=== PATIENT | female | born 1965 | race Caucasian/White ===

== ENCOUNTER 2017-09-14 00:22 | Emergency (ER) | payer MEDICARE, OTHER ==
[~2017-09-14] VITALS: Ht 167.6 cm; Wt 61.4 kg
[2017-09-14 00:25] VITALS: Ht 167.6 cm; Wt 61.4 kg
[2017-09-14] MEDS ORDERED: SOD CHLORIDE 0.9% 1,000 ML IV STA (00:41)
[2017-09-14 01:22] LABS: BASOPHILS % 0.7 % (0.0-2.0); EOSINOPHILS # 0.2 10^3/ul (0.0-0.5); EOSINOPHILS % 3.7 % (0.0-7.0); HEMATOCRIT 29.8 % (37.0-47.0); HEMOGLOBIN 10.7 g/dl (12.0-16.0); LYMPHOCYTES # 1.1 10^3/ul (0.8-2.9); LYMPHOCYTES % 27.3 % (15.0-51.0); MEAN CORPUSCULAR HEMOGLOBIN 36.4 pg (29.0-33.0); MEAN CORPUSCULAR HGB CONC 35.9 g/dl (32.0-37.0); MEAN CORPUSCULAR VOLUME 101.4 fl (82.0-101.0); MEAN PLATELET VOLUME 12.2 fl (7.4-10.4); MONOCYTE # 0.5 10^3/ul (0.3-0.9); MONOCYTES % 12.4 % (0.0-11.0); NEUTROPHIL # 2.2 10^3/ul (1.6-7.5); NEUTROPHILS % 55.7 % (39.0-77.0); PLATELET COUNT 101 10^3/UL (140-415); RED BLOOD COUNT 2.94 10^6/ul (4.20-5.40); RED CELL DISTRIBUTION WIDTH 17.5 % (11.5-14.5)
[2017-09-14 01:52] LABS: CALCIUM 9.5 mg/dl (8.4-10.2); CREATININE 0.81 mg/dl (0.44-1.00); POTASSIUM 3.3 mmol/L (3.5-5.1)
[2017-09-14] MEDS ORDERED: DEXTROSE 50% 50 ML SYRINGE IV ONE (02:30)
[2017-09-14] MEDS ORDERED: DEXTROSE 5%-0.45% NACL 1,000 ML IV SCH ×2 (02:30→02:58)
[2017-09-14] MEDS ORDERED: ACETAMINOPHEN 650MG/20.3ML CUP PO PRN (03:00)
[2017-09-14] MEDS ORDERED: DEXTROSE 50% 50 ML SYRINGE IV PRN ×3 (03:00→03:15)
[2017-09-14] MEDS ORDERED: ONDANSETRON 4 MG INJ IV PRN (03:00)
--- NOTE | 2017-09-14 03:08 | ERD ---
ER Documentation Chief Complaint Chief Complaint BIBA RA90,drowsy r/t low blood sugar at home,rec'd D50,c/o low back pain HPI This 52-year-old female presents with severe hypoglycemia. Family had called paramedics and patient was acutely altered and unconscious. Paramedics arrived and blood sugar was too low to read meaning was lower than 30. Paramedics gave dextrose after IV placement the sugar came up to 338 prior to arrival to the ER. Patient is still confused. She states that she usually takes her NovoLog insulin which she gave herself 8 units of this evening however she did not eat at all today. She has not given herself her midnight Lantus dose yet. She did take it last night however. He denies any pain shortness of breath although she is slightly. She denies alcohol use. ROS All systems reviewed and are negative except as per history of present illness the patient seems unreliable currently.. Allergies Allergies: Coded Allergies: Penicillins (Verified Allergy, Unknown, 09/14/17) PMhx/Soc Medical and Surgical Hx: pt denies Surgical Hx History of Surgery: No Hx Neurological Disorder: No Hx Respiratory Disorders: No Hx Cardiac Disorders: No Hx Psychiatric Problems: No Hx Miscellaneous Medical Probl: Yes (LIVER CIRRHOSIS, DM) Hx Alcohol Use: Yes (FORMER) Hx Substance Use: No Hx Tobacco Use: Yes Smoking Status: Current every day smoker Physical Exam Vitals Vital Signs Date Time Temp Pulse Resp B/P Pulse Ox O2 Delivery O2 Flow Rate FiO2 09/14/17 00:25 97.4 69 18 111/79 100 Room Air 09/14/17 00:25 97.4 89 18 136/76 98 Physical Exam Const: [] Distress, appears slightly altered and somnolent Head: Atraumatic Eyes: Normal Conjunctiva, EOMI, PERRLA ENT: Normal External Ears, Nose and Mouth. Neck: Full range of motion..~ No meningismus. Resp: Clear to auscultation bilaterally Cardio: Regular rate and rhythm, no murmurs Abd: Soft, non tender, non distended. Normal bowel sounds Skin: No petechiae or rashes Back: No midline or flank tenderness Ext: No cyanosis, or edema Neur: Awake and alert and oriented 3, slow speech, slow to answer, cranial nerves II through XII intact, no cerebellar deficits. Psych: Flat affect Result Diagram: 09/14/1710409/14/17104 Results 24 hrs Laboratory Tests Test 09/14/17 01:05 09/14/17 02:24 White Blood Count 4.010^3/ul Red Blood Count 2.9410^6/ul Hemoglobin 10.7g/dl Hematocrit 29.8% Mean Corpuscular Volume 101.4fl Mean Corpuscular Hemoglobin 36.4pg Mean Corpuscular Hemoglobin Concent 35.9g/dl Red Cell Distribution Width 17.5% Platelet Count 48229^3/UL Mean Platelet Volume 12.2fl Neutrophils % 55.7% Lymphocytes % 27.3% Monocytes % 12.4% Eosinophils % 3.7% Basophils % 0.7% Nucleated Red Blood Cells % 0.0/100WBC Neutrophils # 2.210^3/ul Lymphocytes # 1.110^3/ul Monocytes # 0.510^3/ul Eosinophils # 0.210^3/ul Basophils # 0.010^3/ul Nucleated Red Blood Cells # 0.010^3/ul Sodium Level 145mmol/L Potassium Level 3.3mmol/L Chloride Level 110mmol/L Carbon Dioxide Level 25mmol/L Anion Gap 13 Blood Urea Nitrogen 13mg/dl Creatinine 0.81mg/dl Glucose Level 58mg/dl Calcium Level 9.5mg/dl Bedside Glucose 53mg/dL Current Medications Medications (Trade) Dose Ordered Sig/Julian Route PRN Reason Start Time Stop Time Status Last Admin Dose Admin Sodium Chloride 1,000 ml @ 1,000 mls/hr Q1H STAT IV 09/14/17 00:41 09/14/17 01:40 DC 09/14/17 01:13 Dextrose/Sodium Chloride (D5-1/2ns) 1,000 ml @ 125 mls/hr Q8H IV 09/14/17 02:30 09/14/17 02:40 Dextrose (D50w Syringe) 50 ml ONCE ONCE IV 09/14/17 02:30 09/14/17 02:31 DC 09/14/17 02:39 Procedures/MDM Acute recurrent hypoglycemia on insulin. Patient sugar is been 338 on paramedics monitor on arrival after having been too low to read. She then again dropped to 58 and 54 shortly after arrival. I ordered another amp of D50 and placed her on a D5 drip. We are going to check the sugars every hour. She also had mild hypokalemia and was able to tolerate a p.o. potassium pill. Patient appeared more altered than she should for having high sugar meaning that she may have Addy been dropping. I have ordered an ethanol level because patient has a macrocytic anemia and it is Saturday night she may be intoxicated but not be admitting to it. Either way do not feel it even if the sugar becomes controlled after E observation the would be safe to discharge her under her own care to administer insulin properly. I spoke with Dr. Chan and the patient will be admitted to ICU for very close monitoring of her sugars. Rate monitor interpretation: Normal sinus rhythm with occasional sinus tachycardia. No other arrhythmias. Critical care time 35 minutes: This includes frequent multiple visits patient's bedside to reassess neurological status and cardio dynamic status, treatment of life-threatening hypoglycemia it is recurrent, use of dextrose 50 use of D5 drip , discussion with patient and admitting doctor, review of chart. This does not include billable procedures Departure Diagnosis: Primary Impression: Hypoglycemia due to insulin Additional Impressions: Altered level of consciousness Macrocytic anemia Hypokalemia Condition: Critical BELLRHEADONAVON DO Sep 14, 2017 03:08
[2017-09-14 03:13] VITALS: BP 124/79; PULSE 85; RESP 16; TEMP 97.5
[2017-09-14] MEDS ORDERED: POTASSIUM CHLORIDE (SR) 20 MEQ TAB PO ONE (03:14)
[2017-09-14] MEDS ORDERED: GLUCAGON 1 MG INJ IM PRN (03:15)
[2017-09-14] MEDS ORDERED: GLUCOSE GEL 15 GRAM TUBE PO PRN ×2 (03:15)
[2017-09-14] MEDS ORDERED: GLUCOSE GEL 15 GRAM TUBE BUCCAL PRN (03:15)
--- NOTE | 2017-09-14 04:16 | HP ---
Date/Time of Note Date/Time of Note DATE: 09/14/17 TIME: 04:13 Assessment/Plan VTE Prophylaxis VTE Prophylaxis Intervention: other (patient left ama) Assessment/Plan Chief Complaint/Hosp Course I was not able to see the patient as she left AMA, against medical advice from the emergency department. Problems: HPI/ROS Admit Date/Time Admit Date/Time Hx of Present Illness After putting in the admission orders I was on my way to interview the patient when i was notified by the ER physican that the patient left Against Medical Advice. I was not able to see the patient. Patient left AMA. ROS patient left ama PMH/Family/Social Past Medical History patient left ama Social History Smoking Status: Current every day smoker Exam/Review of Systems Vital Signs Vitals Vital Signs Date Time Temp Pulse Resp B/P Pulse Ox O2 Delivery O2 Flow Rate FiO2 09/14/17 03:13 97.5 85 16 124/79 100 Room Air Labs Result Diagram: 09/14/17 0105 09/14/17 0105 GENARO YLONS Sep 14, 2017 04:16
[2017-09-14 04:38] LABS: ALBUMIN 3.2 g/dl (3.3-4.9); BILIRUBIN,INDIRECT 0.8 mg/dl (0-1.1); BILIRUBIN,TOTAL 0.8 mg/dl (0.2-1.3); TOTAL PROTEIN 7.2 g/dl (6.1-8.1)
[2017-09-14] MEDS ORDERED: PANTOPRAZOLE 40 MG INJ IV SCH (06:00)
--- NOTE | 2017-09-14 07:04 | DS ---
Date/Time of Note Date/Time of Note DATE: 09/14/17 TIME: 07:03 Discharge Summary Admission/Discharge Info Admit Date/Time Discharge Date/Time patient left AMA, against medical advice. I was not able to see the patient Discharge Diagnosis patient left AMA, against medical advice. I was not able to see the patient Patient Condition: Guarded Hx of Present Illness After putting in the admission orders I was on my way to interview the patient when i was notified by the ER physican that the patient left Against Medical Advice. I was not able to see the patient. Patient left AMA. Hospital Course I was not able to see the patient as she left AMA, against medical advice from the emergency department. Follow-up Plan patient left AMA, against medical advice. I was not able to see the patient Primary Care Provider Not On Staff Doctor Time spent on discharge: patient left AMA, against medical advice. I was not able to see the patient Pending Labs Laboratory Tests Test 09/14/17 01:05 09/14/17 01:08 09/14/17 02:24 09/14/17 03:10 White Blood Count 4.010^3/ul (4.8-10.8) Red Blood Count 2.9410^6/ul (4.20-5.40) Hemoglobin 10.7g/dl (12.0-16.0) Hematocrit 29.8% (37.0-47.0) Mean Corpuscular Volume 101.4fl (82.0-101.0) Mean Corpuscular Hemoglobin 36.4pg (29.0-33.0) Mean Corpuscular Hemoglobin Concent 35.9g/dl (32.0-37.0) Red Cell Distribution Width 17.5% (11.5-14.5) Platelet Count 63577^3/UL (140-415) Mean Platelet Volume 12.2fl (7.4-10.4) Neutrophils % 55.7% (39.0-77.0) Lymphocytes % 27.3% (15.0-51.0) Monocytes % 12.4% (0.0-11.0) Eosinophils % 3.7% (0.0-7.0) Basophils % 0.7% (0.0-2.0) Nucleated Red Blood Cells % 0.0/100WBC (0.0-0.0) Neutrophils # 2.210^3/ul (1.6-7.5) Lymphocytes # 1.110^3/ul (0.8-2.9) Monocytes # 0.510^3/ul (0.3-0.9) Eosinophils # 0.210^3/ul (0.0-0.5) Basophils # 0.010^3/ul (0.0-0.1) Nucleated Red Blood Cells # 0.010^3/ul (0.0-0.0) Sodium Level 145mmol/L (135-144) Potassium Level 3.3mmol/L (3.5-5.1) Chloride Level 110mmol/L (97-110) Carbon Dioxide Level 25mmol/L (21-31) Anion Gap 13 (8-16) Blood Urea Nitrogen 13mg/dl (7-20) Creatinine 0.81mg/dl (0.44-1.00) Glucose Level 58mg/dl (70-220) Calcium Level 9.5mg/dl (8.4-10.2) Magnesium Level 1.5mg/dl (1.7-2.5) Total Bilirubin 0.8mg/dl (0.2-1.3) Direct Bilirubin 0.00mg/dl (0.00-0.20) Indirect Bilirubin 0.8mg/dl (0-1.1) Aspartate Amino Transf (AST/SGOT) 62IU/L (15-46) Alanine Aminotransferase (ALT/SGPT) 49IU/L (13-69) Alkaline Phosphatase 136IU/L (42-121) Total Protein 7.2g/dl (6.1-8.1) Albumin 3.2g/dl (3.3-4.9) Ethyl Alcohol Level 173.0mg/dl Bedside Glucose 53mg/dL (70-220) 204mg/dL (70-220) GENARO LYONS Sep 14, 2017 07:04
== END 2017-09-14 03:39 | disposition left against medical advice (07) ==
LOC: E/R 00:22
DX: E11.649 Type 2 diabetes mellitus with hypoglycemia without coma (principal); D53.9 Nutritional anemia, unspecified; E87.6 Hypokalemia; F17.210 Nicotine dependence, cigarettes, uncomplicated
CPT/HCPCS: 36415; 80048; 80076; 80306; 82962; 83735; 85025; 96374; 99284; J7030; J7042

== ENCOUNTER 2017-10-05 11:16 | Inpatient (IN) | END 2017-10-10 15:55 | disposition home health service (06) | DRG 493 ==

== ENCOUNTER 2018-01-14 20:15 | Inpatient (IN) | END 2018-01-22 20:02 | DRG 603 ==

== ENCOUNTER 2018-02-12 23:14 | Inpatient (IN) | END 2018-02-20 10:50 | disposition short-term general hospital (02) | DRG 91 ==

== ENCOUNTER 2018-02-20 11:22 | Inpatient (IN) | END 2018-02-21 13:58 | disposition home or self-care (01) | DRG 683 ==

== ENCOUNTER 2018-04-30 18:35 | Emergency (ER) | END 2018-04-30 21:27 | disposition home or self-care (01) ==

== ENCOUNTER 2018-11-30 02:57 | Inpatient (IN) | payer MEDICARE, OTHER ==
[~2018-11-30] VITALS: Ht 165.1 cm; Wt 60.1 kg
[2018-11-30] VITALS (9 sets, daily range): BP systolic 87–121; BP diastolic 52–76; PULSE 96–112; RESP 18–20; Ht 165.1 cm; Wt 60.1 kg
[~2018-11-30 02:57] MED LIST: FOLI-49 PO; FURO80TA3 PO; GABA300C16 PO; LACT20SO2 PO; LANT3I SC; LEVO88TA3 PO; LIPA1CAP2 PO; PANT40TA4 PO; RIFA550T4 PO
[2018-11-30] MEDS ORDERED: SOD CHLORIDE 0.9% 1,000 ML IV STA ×2 (03:34→06:48)
[2018-11-30] MEDS ORDERED: morphine 4 MG/ML VIAL IV STA (03:34)
[2018-11-30] MEDS ORDERED: ONDANSETRON 4 MG INJ IV STA ×2 (03:34→03:52)
[2018-11-30] MEDS ORDERED: HYDROmorphONE 0.5 MG/0.5 ML SYG IV STA ×2 (05:01→10:30)
[2018-11-30] MEDS ORDERED: IODIXANOL LOCM 100 ML BTL ONE (06:48)
[2018-11-30] MEDS ORDERED: SOD CHLORIDE 0.9% 100 ML ONE (06:48)
[2018-11-30] MEDS ORDERED: ACETAMINOPHEN 325 MG TAB PO PRN ×2 (07:00→08:30)
[2018-11-30] MEDS ORDERED: ONDANSETRON 4 MG INJ IV PRN ×2 (07:00→08:30)
[2018-11-30] MEDS ORDERED: ALBUMIN HUMAN 25% 50 ML IV ONE (07:30)
[2018-11-30] MEDS ORDERED: FENTAnyl 50 MCG/ML VIAL IV ONE (07:30)
--- NOTE | 2018-11-30 07:57 | EN ---
Date/Time of Note Date/Time of Note DATE: 11/30/18 TIME: 07:56 ER Progress Note The patient was still having some discomfort. In the setting of her liver disease albumin was provided for volume replacement. Patient was given fentanyl. Blood pressure improved. The patient is pending formal CTA read and can be followed by admitting team. Patient is stable for admission at this time. KEELY PENN MD Nov 30, 2018 07:57
[2018-11-30] MEDS ORDERED: morphine 2 MG INJ IV PRN (08:30)
[2018-11-30] MEDS ORDERED: MAGNESIUM HYDROXIDE 30ML CUP PO PRN (08:30)
[2018-11-30] MEDS ORDERED: LORAZEPAM 2 MG INJ IV PRN (08:30)
[2018-11-30] MEDS ORDERED: NITROGLYCERIN (SL) 0.4 MG TAB SL PRN (08:30)
[2018-11-30] MEDS ORDERED: hydrALAzine 20 MG INJ IV PRN (08:30)
[2018-11-30] MEDS ORDERED: ALBUTEROL/IPRATROPIUM (NEB) 3 ML AMP HHN PRN (08:30)
[2018-11-30] MEDS ORDERED: DOCUSATE SODIUM 100 MG CAP PO PRN (08:30)
[2018-11-30] MEDS ORDERED: NACL 0.9% 3 ML SYG IV SCH (08:30)
--- NOTE | 2018-11-30 09:44 | CONS ---
Assessment/Plan Assessment/Plan Assessment/Plan (Daily) 1. ESRD on HD - pt is currently confused, unable to know HD schedule, 2. acute abdominal pain 3. H/o Hypertension 4. H/o DM II 5. H/o Liver cirrhosis Plan: HD ordered for tomorrow, BP stable, will continue HD on MWF schedule S/o General surgery consult by Dr. Avery Gutierrez - Continue current meds , IV dilaudid for pain control Will have field case manager o find out pt HD unit information Thanks for consultation, I will continue to follow up Consultation Date/Type/Reason Admit Date/Time Nov 30, 2018 at 06:52 Date of Consultation: Nov 30, 2018 Type of Consult NEPHROLOGY Reason for Consultation ESRD on HD with acute abdominal pain Requesting Provider: SIRI DISLA Date/Time of Note DATE: 11/30/18 TIME: 09:40 Hx of Present Illness 53-year-old female with past medical history based on records of cirrhosis, end- stage renal disease on dialysis, prior UTI, hepatic encephalopathy, type 2 diabetes, hypothyroidism who comes in with abdominal pain. She required multiple doses of narcotics in the ER and initial CT scan with noncontrast did not show any acute abnormalities; however, CTA was performed later today and the results show embolization coils left upper quadrant, possible splenic infarct. There is also marked thickening of the ascending colon, may be related to portal hypertension, infectious colitis not excluded. There are also signs of gallstones but no signs of any abdominal aortic aneurysm or dissection., she was treated for alcoholic cirrhosis with ascites, E. coli UTI, also hepatic encephalopathy and acute kidney injury. Renal has been consulted for acute kidney injury. Subjective hx not possible: other (unable to obtain ROS ) Constitutional: disoriented Past Medical History Medical History: high cholesterol, hypertension (ES), other (ESRD on HD, Liver cirrhosis) Home Meds Active Scripts Lactulose* (Lactulose*) 20 Gm/30 Ml Solution, 20 GM PO Q6 for 30 Days, #1 BOTTLE titrate to 3-4 BMs/day Prov:GEE BAKER MD 02/12/18 Rifaximin* (Xifaxan*) 550 Mg Tablet, 550 MG PO BID, #40 TAB Prov:ROSALBA MADSEN 01/22/18 Folic Acid* (Folic Acid*) 1 Mg Tablet, 1 MG PO DAILY, #60 TAB Prov:ROSALBA MADSEN 01/22/18 Reported Medications Insulin Glargine* (Lantus*) 100 Unit/Ml Soln, 6 UNIT SC QHS, #1 VIAL 04/30/18 Furosemide* (Furosemide*) 80 Mg Tablet, 80 MG PO DAILY, #30 TAB 04/30/18 Pantoprazole* (Pantoprazole*) 40 Mg Tablet.dr, 40 MG PO DAILY, TAB 04/30/18 Levothyroxine Sodium* (Levothyroxine Sodium*) 88 Mcg Tablet, 88 MCG PO BEFORE BREAKFAST, #30 TAB 04/30/18 Gabapentin* (Gabapentin*) 300 Mg Capsule, 300 MG PO DAILY, #60 CAP 04/30/18 Ejaywg-Atzpnfne-Rmnwtqy* (Joshua ERICKSON* 6,000) 6,000 L-19,000-30,000 Unit Capsule.dr, 1 CAP PO WITH MEALS, CAP 10/04/17 Medications Current Medications Ondansetron HCl (Zofran Inj) 4 mg ER BRIDGE PRN IV NAUSEA/VOMITING; Start 11/30 at 07:00; Stop 12/01/18 at 06:59 Acetaminophen (Tylenol Tab) 650 mg ER BRIDGE PRN PO .MILD PAIN 1-3 OR TEMP; Start 11/30/18 at 07:00; Stop 12/01/18 at 06:59 IV Flush (NS 3 ml) 3 ml PER PROTOCOL IV ; Start 11/30/18 at 08:30 Ondansetron HCl (Zofran Inj) 4 mg Q6H PRN IV NAUSEA/VOMITING; Start 11/30/18 at 08:30 Acetaminophen (Tylenol Tab) 650 mg Q6H PRN PO .PAIN 1-3 OR TEMP; Start 11/30/18 at 08:30 Acetaminophen/ Hydrocodone Bitart ([place] (5/325)) 1 tab Q6H PRN PO .MOD PAIN 4- 6; Start 11/30/18 at 08:30 Morphine Sulfate (morphine) 2 mg Q4H PRN IV .SEVERE PAIN 7-10; Start 11/30/18 at 08:30 Docusate Sodium (Colace) 100 mg Q12H PRN PO .CONSTIPATION; Start 11/30/18 at 08:30 Magnesium Hydroxide (Milk Of Mag) 30 ml DAILY PRN PO .CONSTIPATION; Start 11/30/18 at 08:30 Lorazepam (Ativan) 0.5 mg Q6H PRN IV ANXIETY; Start 11/30/18 at 08:30 Albuterol/ Ipratropium (Duoneb) 3 ml Q4H RESP THERAPY PRN HHN SHORTNESS OF BREATH; Start 11/30/18 at 08:30 Hydralazine HCl (Apresoline) 10 mg Q6H PRN IV ELEVATED BLOOD PRESSURE; Start 11/30/18 at 08:30 Nitroglycerin (Nitroglycerin (Sl Tab) 0.4 Mg) 1 tab Q5M PRN SL ANGINA; Start 11/30/18 at 08:30 Folic Acid (Folic Acid) 1 mg DAILY PO ; Start 11/30/18 at 09:00 Insulin Glargine (Lantus) 6 units QHS SC ; Start 11/30/18 at 21:00 Lactulose (Enulose) 20 gm Q6 PO ; Start 11/30/18 at 12:00 Levothyroxine Sodium (Synthroid) 88 mcg BEFORE BREAKFAST PO ; Start 12/01/18 at 07:00 Pantoprazole (Protonix Tab) 40 mg DAILY@0600 PO ; Start 11/30/18 at 09:00 Rifaximin (Xifaxan) 550 mg BID PO ; Start 11/30/18 at 11:00 Miscellaneous Information 1 cap WITH MEALS XX ; Start 11/30/18 at 12:00; Status Future Hold Allergies: Coded Allergies: Penicillins (Verified Allergy, Unknown, 01/14/18) Past Surgical History Past Surgical Hx: other (Hysterectomy, Hernia Surgery, permacath placement, left ankle surgery ) Family History Significant Family History: no pertinent family hx Social History Alcohol Use: none Smoking Status: Current every day smoker Drug Use: none Exam/Review of Systems Exam Vitals Vital Signs Date Temp Pulse Resp B/P (MAP) Pulse Ox O2 O2 Flow FiO2 Time Delivery Rate 11/30/18 98.7 96 18 96/54 (68) 94 Room Air 08:36 Constitutional: other (disoriented, confused ) Psych: no complaints Head: normocephalic ENMT: nl external ears & nose Neck: supple, non-tender Respiratory: crackles/rales, diminished breath sounds Cardiovascular: regular rate and rhythm, nl pulses, other (Permacath ) Gastrointestinal: soft, non-tender Results Result Diagram: 11/30/18 0350 11/30/18 0350 Results 24hrs Laboratory Tests Test 11/30/18 03:49 11/30/18 03:50 11/30/18 09:01 Prothrombin Time 20.0 H Pending Prothrombin Time Ratio 1.6 1.9 INR International Normalized Ratio 1.69 2.15 Activated Partial Thromboplast Time 38.0 H 42.8 H Ammonia 33 #H White Blood Count 3.4 #L Red Blood Count 3.14 #L Hemoglobin 10.9 #L Hematocrit 32.7 #L Mean Corpuscular Volume 104.1 H Mean Corpuscular Hemoglobin 34.7 H Mean Corpuscular Hemoglobin Concent 33.3 Red Cell Distribution Width 17.4 H Platelet Count 40 #L Mean Platelet Volume 14.4 #H Immature Granulocytes % 0.300 Neutrophils % Segmented Neutrophils % (Manual) 47 Band Neutrophils % (Manual) 10 H Lymphocytes % Lymphocytes % (Manual) 34 Monocytes % Monocytes % (Manual) 1 Eosinophils % Eosinophils % (Manual) 7 Basophils % Promyelocytes % (Manual) 1 H Nucleated Red Blood Cells % 1 H Immature Granulocytes # 0.010 Neutrophils # Neutrophils # (Manual) 1.6 Band Neutrophils # 0.3 Lymphocytes (Manual) 1.1 Lymphocytes # Monocytes # Monocytes # (Manual) 0.0 L Eosinophils # Basophils # Promyelocytes # 0.0 Nucleated Red Blood Cells # Platelet Estimate SIG DECREASED Giant Platelets 2 H Polychromasia 1+ Poikilocytosis 2+ Anisocytosis 3+ Macrocytosis 3+ Sodium Level 137 Potassium Level 4.5 Chloride Level 103 Carbon Dioxide Level 23 Anion Gap 11 Blood Urea Nitrogen 23 H Creatinine 7.46 H Est Glomerular Filtrat Rate mL/min 6 L Glucose Level 213 Calcium Level 8.4 Total Bilirubin 1.6 H Direct Bilirubin 0.00 Indirect Bilirubin 1.6 H Aspartate Amino Transf (AST/SGOT) 25 Alanine Aminotransferase (ALT/SGPT) < 6 L Alkaline Phosphatase 185 H Total Protein 7.5 Albumin 2.8 L Globulin 4.70 H Albumin/Globulin Ratio 0.59 Lipase < 10 L Free Thyroxine 1.32 Medications Medication Current Medications Ondansetron HCl (Zofran Inj) 4 mg ER BRIDGE PRN IV NAUSEA/VOMITING; Start 11/30/18 at 07:00; Stop 12/01/18 at 06:59 Acetaminophen (Tylenol Tab) 650 mg ER BRIDGE PRN PO .MILD PAIN 1-3 OR TEMP; Start 11/30/18 at 07:00; Stop 12/01/18 at 06:59 IV Flush (NS 3 ml) 3 ml PER PROTOCOL IV ; Start 11/30/18 at 08:30 Ondansetron HCl (Zofran Inj) 4 mg Q6H PRN IV NAUSEA/VOMITING; Start 11/30/18 at 08:30 Acetaminophen (Tylenol Tab) 650 mg Q6H PRN PO .PAIN 1-3 OR TEMP; Start 11/30/18 at 08:30 Acetaminophen/ Hydrocodone Bitart ([place] (5/325)) 1 tab Q6H PRN PO .MOD PAIN 4- 6; Start 11/30/18 at 08:30 Morphine Sulfate (morphine) 2 mg Q4H PRN IV .SEVERE PAIN 7-10; Start 11/30/18 at 08:30 Docusate Sodium (Colace) 100 mg Q12H PRN PO .CONSTIPATION; Start 11/30/18 at 08:30 Magnesium Hydroxide (Milk Of Mag) 30 ml DAILY PRN PO .CONSTIPATION; Start 11/30/18 at 08:30 Lorazepam (Ativan) 0.5 mg Q6H PRN IV ANXIETY; Start 11/30/18 at 08:30 Albuterol/ Ipratropium (Duoneb) 3 ml Q4H RESP THERAPY PRN HHN SHORTNESS OF BREATH; Start 11/30/18 at 08:30 Hydralazine HCl (Apresoline) 10 mg Q6H PRN IV ELEVATED BLOOD PRESSURE; Start 11/30/18 at 08:30 Nitroglycerin (Nitroglycerin (Sl Tab) 0.4 Mg) 1 tab Q5M PRN SL ANGINA; Start 11/30/18 at 08:30 Folic Acid (Folic Acid) 1 mg DAILY PO ; Start 11/30/18 at 09:00 Insulin Glargine (Lantus) 6 units QHS SC ; Start 11/30/18 at 21:00 Lactulose (Enulose) 20 gm Q6 PO ; Start 11/30/18 at 12:00 Levothyroxine Sodium (Synthroid) 88 mcg BEFORE BREAKFAST PO ; Start 12/01/18 at 07:00 Pantoprazole (Protonix Tab) 40 mg DAILY@0600 PO ; Start 11/30/18 at 09:00 Rifaximin (Xifaxan) 550 mg BID PO ; Start 11/30/18 at 11:00 Miscellaneous Information 1 cap WITH MEALS XX ; Start 11/30/18 at 12:00; Status Future Hold MECCA RENAE MD Nov 30, 2018 09:44
[2018-11-30] MEDS ORDERED: GLUCAGON 1 MG INJ IM PRN (10:00)
[2018-11-30] MEDS ORDERED: DEXTROSE 50% 50 ML SYRINGE IV PRN ×2 (10:00)
[2018-11-30] MEDS ORDERED: GLUCOSE GEL 15 GRAM TUBE PO PRN ×2 (10:00)
[2018-11-30] MEDS ORDERED: GLUCOSE GEL 15 GRAM TUBE BUCCAL PRN (10:00)
[2018-11-30] MEDS ORDERED: SODIUM CHLORIDE 0.9% 1L BAG IV PRN (10:00)
--- NOTE | 2018-11-30 10:14 | HP ---
DATE OF ADMISSION: 11/30/2018 IDENTIFICATION: This is a 53-year-old female. CHIEF COMPLAINT: Abdominal pain. HISTORY OF PRESENT ILLNESS: A 53-year-old female with past medical history based on records of cirrh osis, end-stage renal disease on dialysis, prior UTI, hepatic encephalopathy, type 2 diabetes, hypoth yroidism who comes in with abdominal pain. Most of the information is obtained from the ER documenta tion as the patient is unable to provide full HPI at this time. The patient apparently had been havi ng upper abdominal pain. She required multiple doses of narcotics in the ER and initial CT scan with noncontrast did not show any acute abnormalities; however, CTA was performed later today and the res ults show embolization coils left upper quadrant, possible splenic infarct. There is also marked thi ckening of the ascending colon, may be related to portal hypertension, infectious colitis not exclude d. There are also signs of gallstones but no signs of any abdominal aortic aneurysm or dissections a nd a call was made out to the vascular surgeon and general surgeon to come see the patient. Full rev iew of systems cannot be obtained at this time. The patient was last here at our hospital in 01/2018 . At that time, she was treated for alcoholic cirrhosis with ascites, E. coli UTI, also hepatic ence phalopathy and acute kidney injury. PAST MEDICAL HISTORY: As stated above. ALLERGIES: PENICILLINS. MEDICATIONS AT HOME: Per records: 1. Rifaximin 550 mg b.i.d. 2. Gabapentin 300 mg daily. 3. Lasix 80 mg daily. 4. Lactulose 20 grams q.6h. 5. Creon. 6. Protonix 40 mg daily. 7. Lantus 6 units at bedtime. 8. Levothyroxine 88 mcg every morning. 9. Folic acid 1 mg daily. PAST SURGICAL HISTORY: ORIF of the ankle in the past. SOCIAL HISTORY: Former smoker. No IV drug abuse, no alcohol history. FAMILY HISTORY: Noncontributory. PHYSICAL EXAMINATION: VITAL SIGNS: T-max 99.8, pulse 95 to 103, respirations 18 to 24, blood pressure is 87 to 100 systoli c over 64 to 69 diastolic, satting at 94% on room air. GENERAL: The patient is lying in bed, no acute distress. HEENT: Pupils equal, round, react to light. Extraocular muscles intact. NECK: Supple, no thyromegaly. LUNGS: Clear to auscultation bilaterally. CARDIOVASCULAR: S1, S2 heard. No rubs or gallops. ABDOMEN: Tenderness to palpation in epigastric area. No rebound or guarding. Normal bowel sounds. MUSCULOSKELETAL: No lower extremity edema bilaterally. NEUROLOGIC: No apparent focal deficits. LABORATORIES: WBC 3.4, hemoglobin 10.9, hematocrit 32.7, platelets 40. Sodium 137, potassium 4.5, c hloride 103, CO2 23, BUN 23, creatinine 7.46, glucose 213. Total bilirubin is 1.6, but the direct is 0, alkaline phosphatase is a little high at 385. The ammonia is a little high at 33. Lipase is nor mal. We mentioned the CT abdominal angiogram results, we mentioned those. There is also a chest x-r ay performed that shows low lung volumes with bibasilar atelectasis, but otherwise no acute findings. ASSESSMENT AND PLAN: A 53-year-old female coming with abdominal pain. Prior history of cirrhosis, d iabetes, hypothyroidism, end-stage renal disease, dialysis with findings of possible splenic infarct and ascending colon thickening, also mild hepatic encephalopathy. 1. Abdominal pain. She has symptoms possibly secondary to the findings found on CT angio of the abd omen including possible splenic infarct and thickening of the ascending colon. We will admit the mark ent, get both general surgery and vascular surgery consults. Consider starting low-dose IV fluids as well. Of note, we will check a lactic acid level. Vital signs are stable presently. Check TSH, A1 c, lipid panel. Follow up recommendations from [facility] consultant teams. Pain control medications cautiousl y with morphine and Elverta p.r.n. 2. History of diabetes. Continue current insulin. Follow up A1c. 3. History of hypothyroidism. Follow up thyroid panel. Continue levothyroxine. 4. End-stage renal disease on dialysis. Will get a renal consult for dialysis. Monitor creatinine levels. 5. History of cirrhosis. Again, she does have some thrombocytopenia as well. Again, see #1. Follo w up on any anticoagulants given thrombocytopenia. Continue current medications including for the cirrhosis and lactulose for the hepatic encephalopathy as well. 6. Gastrointestinal prophylaxis, PPI. 7. Deep venous thrombosis prophylaxis, SCDs. 8. Also, get PT and OT consult. Dictated By: SIRI CUETO/DARCIE Conf#: [id number] [facility]#: [id number] CC: ALLISON BARRON MD; HERMES BURGOS MD;*[facility]*
[2018-11-30] MEDS: PANTOPRAZOLE (EC) 40 MG TAB PO SCH (10:26)
[2018-11-30] MEDS: FOLIC ACID 1 MG TAB PO SCH (10:26)
--- NOTE | 2018-11-30 10:32 | CONS ---
Assessment/Plan Assessment/Plan Assessment/Plan (Daily) Acute onset of abdominal pain. No clear etiology Continue treatment with broad-spectrum antibiotics. Further recommendations will be forthcoming and based on the patient's further workup and clinical course. I will follow with you Consultation Date/Type/Reason Admit Date/Time Nov 30, 2018 at 06:52 Date of Consultation: Nov 30, 2018 Type of Consult General surgery Reason for Consultation Intractable abdominal pain Date/Time of Note DATE: 11/30/18 TIME: 10:26 Hx of Present Illness The patient is an unfortunate 53-year-old female with end-stage renal disease on dialysis, diabetes, cirrhosis and ascites. She states that the patient started suddenly last night and continues. She has had no fevers or chills or change in bowel or bladder habits. A CT abdomen and pelvis was performed as well as a CT angio. The only finding noted was thickening of the right a sending colon possibly related to portal hypertension. Constitutional: poor po Eyes: no complaints ENT: no complaints Respiratory: shortness of breath Cardiovascular: no complaints Gastrointestinal: pain, nausea (End-stage renal disease) Genitourinary: other (End-stage renal disease) Musculoskeletal: restricted range of motion Skin: bruising Neurologic: confusion Past Medical History Medical History: gallstones, other (Cirrhosis and ascites) Home Meds Active Scripts Lactulose* (Lactulose*) 20 Gm/30 Ml Solution, 20 GM PO Q6 for 30 Days, #1 BOTTLE titrate to 3-4 BMs/day Prov:GEE BAKER MD 02/12/18 Rifaximin* (Xifaxan*) 550 Mg Tablet, 550 MG PO BID, #40 TAB Prov:ROSALBA MADSEN 01/22/18 Folic Acid* (Folic Acid*) 1 Mg Tablet, 1 MG PO DAILY, #60 TAB Prov:ROSALBA MADSEN 01/22/18 Reported Medications Insulin Glargine* (Lantus*) 100 Unit/Ml Soln, 6 UNIT SC QHS, #1 VIAL 04/30/18 Furosemide* (Furosemide*) 80 Mg Tablet, 80 MG PO DAILY, #30 TAB 04/30/18 Pantoprazole* (Pantoprazole*) 40 Mg Tablet.dr, 40 MG PO DAILY, TAB 04/30/18 Levothyroxine Sodium* (Levothyroxine Sodium*) 88 Mcg Tablet, 88 MCG PO BEFORE BREAKFAST, #30 TAB 04/30/18 Gabapentin* (Gabapentin*) 300 Mg Capsule, 300 MG PO DAILY, #60 CAP 04/30/18 Brxwol-Mcjdditv-Adrtkbg* (Joshua ERICKSON* 6,000) 6,000 L-19,000-30,000 Unit Capsule.dr, 1 CAP PO WITH MEALS, CAP 10/04/17 Medications Current Medications Ondansetron HCl (Zofran Inj) 4 mg ER BRIDGE PRN IV NAUSEA/VOMITING; Start 11/30/18 at 07:00; Stop 12/01/18 at 06:59 Acetaminophen (Tylenol Tab) 650 mg ER BRIDGE PRN PO .MILD PAIN 1-3 OR TEMP; Start 11/30/18 at 07:00; Stop 12/01/18 at 06:59 IV Flush (NS 3 ml) 3 ml PER PROTOCOL IV ; Start 11/30/18 at 08:30 Ondansetron HCl (Zofran Inj) 4 mg Q6H PRN IV NAUSEA/VOMITING; Start 11/30/18 at 08:30 Acetaminophen (Tylenol Tab) 650 mg Q6H PRN PO .PAIN 1-3 OR TEMP; Start 11/30/18 at 08:30 Acetaminophen/ Hydrocodone Bitart ([place] (5/325)) 1 tab Q6H PRN PO .MOD PAIN 4- 6; Start 11/30/18 at 08:30 Morphine Sulfate (morphine) 2 mg Q4H PRN IV .SEVERE PAIN 7-10; Start 11/30/18 at 08:30 Docusate Sodium (Colace) 100 mg Q12H PRN PO .CONSTIPATION; Start 11/30/18 at 08:30 Magnesium Hydroxide (Milk Of Mag) 30 ml DAILY PRN PO .CONSTIPATION; Start 11/30/18 at 08:30 Lorazepam (Ativan) 0.5 mg Q6H PRN IV ANXIETY; Start 11/30/18 at 08:30 Albuterol/ Ipratropium (Duoneb) 3 ml Q4H RESP THERAPY PRN HHN SHORTNESS OF BREATH; Start 11/30/18 at 08:30 Hydralazine HCl (Apresoline) 10 mg Q6H PRN IV ELEVATED BLOOD PRESSURE; Start 11/30/18 at 08:30 Nitroglycerin (Nitroglycerin (Sl Tab) 0.4 Mg) 1 tab Q5M PRN SL ANGINA; Start 11/30/18 at 08:30 Folic Acid (Folic Acid) 1 mg DAILY PO ; Start 11/30/18 at 09:00 Insulin Glargine (Lantus) 6 units QHS SC ; Start 11/30/18 at 21:00 Lactulose (Enulose) 20 gm Q6 PO ; Start 11/30/18 at 12:00 Levothyroxine Sodium (Synthroid) 88 mcg BEFORE BREAKFAST PO ; Start 12/01/18 at 07:00 Pantoprazole (Protonix Tab) 40 mg DAILY@0600 PO ; Start 11/30/18 at 09:00 Rifaximin (Xifaxan) 550 mg BID PO ; Start 11/30/18 at 11:00 Miscellaneous Information 1 cap WITH MEALS XX ; Start 11/30/18 at 12:00; Status Future Hold Heparin Sodium (Porcine) (Heparin (1000 Units/ml)) 4,000 unit AFTER DIALYSIS CATHETER ; Start 11/30/18 at 10:00 Albumin Human 100 ml @ 100 mls/hr WITH DIALYSIS PRN IV SBP <90 DURING DIALYSIS; Start 11/30/18 at 10:00 Sodium Chloride (NS) -To prime the dialy... DIRECTED FOR HD PRN IV HD; Start 11/30/18 at 10:00 Insulin Aspart (Novolog Insulin Pen) NOVOLOG *MILD* ALGORITHM WITH MEALS BEDTIME SC ; Start 11/30/18 at 12:00 Miscellaneous Information 1 ea NOTE XX ; Start 11/30/18 at 10:00 Glucose (Glutose) 15 gm Q15M PRN PO DECREASED GLUCOSE; Start 11/30/18 at 10:00 Glucose (Glutose) 22.5 gm Q15M PRN PO DECREASED GLUCOSE; Start 11/30/18 at 10:00 Dextrose (D50w Syringe) 25 ml Q15M PRN IV DECREASED GLUCOSE; Start 11/30/18 at 10:00 Dextrose (D50w Syringe) 50 ml Q15M PRN IV DECREASED GLUCOSE; Start 11/30/18 at 10:00 Glucagon (Glucagen) 1 mg Q15M PRN IM DECREASED GLUCOSE; Start 11/30/18 at 10:00 Glucose (Glutose) 15 gm Q15M PRN BUCCAL DECREASED GLUCOSE; Start 11/30/18 at 10:00 Allergies: Coded Allergies: Penicillins (Verified Allergy, Unknown, 01/14/18) Past Surgical History Past Surgical Hx: other (Splenic embolization) Family History Significant Family History: no pertinent family hx Social History Smoking Status: Current every day smoker Exam/Review of Systems Exam Vitals Vital Signs Date Temp Pulse Resp B/P (MAP) Pulse Ox O2 O2 Flow FiO2 Time Delivery Rate 11/30/18 104 20 115/76 10:19 (89) 11/30/18 98.7 94 Room Air 08:36 Constitutional: alert Psych: no complaints Head: normocephalic Eyes: nl conjunctiva ENMT: nl external ears & nose Neck: supple Respiratory: diminished breath sounds Cardiovascular: regular rate and rhythm Gastrointestinal: firm Musculoskeletal: nl extremities to inspection Extremities: normal pulses Neurological: 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 intact Results Result Diagram: 11/30/18 0350 11/30/18 0350 Results 24hrs Laboratory Tests Test 11/30/18 03:49 11/30/18 03:50 11/30/18 09:01 Prothrombin Time 20.0 H 24.1 #H Prothrombin Time Ratio 1.6 1.9 INR International Normalized Ratio 1.69 2.15 Activated Partial Thromboplast Time 38.0 H 42.8 H Ammonia 33 #H White Blood Count 3.4 #L Red Blood Count 3.14 #L Hemoglobin 10.9 #L Hematocrit 32.7 #L Mean Corpuscular Volume 104.1 H Mean Corpuscular Hemoglobin 34.7 H Mean Corpuscular Hemoglobin Concent 33.3 Red Cell Distribution Width 17.4 H Platelet Count 40 #L Mean Platelet Volume 14.4 #H Immature Granulocytes % 0.300 Neutrophils % Segmented Neutrophils % (Manual) 47 Band Neutrophils % (Manual) 10 H Lymphocytes % Lymphocytes % (Manual) 34 Monocytes % Monocytes % (Manual) 1 Eosinophils % Eosinophils % (Manual) 7 Basophils % Promyelocytes % (Manual) 1 H Nucleated Red Blood Cells % 1 H Immature Granulocytes # 0.010 Neutrophils # Neutrophils # (Manual) 1.6 Band Neutrophils # 0.3 Lymphocytes (Manual) 1.1 Lymphocytes # Monocytes # Monocytes # (Manual) 0.0 L Eosinophils # Basophils # Promyelocytes # 0.0 Nucleated Red Blood Cells # Platelet Estimate SIG DECREASED Giant Platelets 2 H Polychromasia 1+ Poikilocytosis 2+ Anisocytosis 3+ Macrocytosis 3+ Sodium Level 137 Potassium Level 4.5 Chloride Level 103 Carbon Dioxide Level 23 Anion Gap 11 Blood Urea Nitrogen 23 H Creatinine 7.46 H Est Glomerular Filtrat Rate mL/min 6 L Glucose Level 213 Calcium Level 8.4 Total Bilirubin 1.6 H Direct Bilirubin 0.00 Indirect Bilirubin 1.6 H Aspartate Amino Transf (AST/SGOT) 25 Alanine Aminotransferase (ALT/SGPT) < 6 L Alkaline Phosphatase 185 H Total Protein 7.5 Albumin 2.8 L Globulin 4.70 H Albumin/Globulin Ratio 0.59 Lipase < 10 L Free Thyroxine 1.32 Medications Medication Current Medications Ondansetron HCl (Zofran Inj) 4 mg ER BRIDGE PRN IV NAUSEA/VOMITING; Start 11/30/18 at 07:00; Stop 12/01/18 at 06:59 Acetaminophen (Tylenol Tab) 650 mg ER BRIDGE PRN PO .MILD PAIN 1-3 OR TEMP; Start 11/30/18 at 07:00; Stop 12/01/18 at 06:59 IV Flush (NS 3 ml) 3 ml PER PROTOCOL IV ; Start 11/30/18 at 08:30 Ondansetron HCl (Zofran Inj) 4 mg Q6H PRN IV NAUSEA/VOMITING; Start 11/30/18 at 08:30 Acetaminophen (Tylenol Tab) 650 mg Q6H PRN PO .PAIN 1-3 OR TEMP; Start 11/30/18 at 08:30 Acetaminophen/ Hydrocodone Bitart ([place] (5/325)) 1 tab Q6H PRN PO .MOD PAIN 4- 6; Start 11/30/18 at 08:30 Morphine Sulfate (morphine) 2 mg Q4H PRN IV .SEVERE PAIN 7-10; Start 11/30/18 at 08:30 Docusate Sodium (Colace) 100 mg Q12H PRN PO .CONSTIPATION; Start 11/30/18 at 08:30 Magnesium Hydroxide (Milk Of Mag) 30 ml DAILY PRN PO .CONSTIPATION; Start 11/30/18 at 08:30 Lorazepam (Ativan) 0.5 mg Q6H PRN IV ANXIETY; Start 11/30/18 at 08:30 Albuterol/ Ipratropium (Duoneb) 3 ml Q4H RESP THERAPY PRN HHN SHORTNESS OF BREATH; Start 11/30/18 at 08:30 Hydralazine HCl (Apresoline) 10 mg Q6H PRN IV ELEVATED BLOOD PRESSURE; Start 11/30/18 at 08:30 Nitroglycerin (Nitroglycerin (Sl Tab) 0.4 Mg) 1 tab Q5M PRN SL ANGINA; Start 11/30/18 at 08:30 Folic Acid (Folic Acid) 1 mg DAILY PO ; Start 11/30/18 at 09:00 Insulin Glargine (Lantus) 6 units QHS SC ; Start 11/30/18 at 21:00 Lactulose (Enulose) 20 gm Q6 PO ; Start 11/30/18 at 12:00 Levothyroxine Sodium (Synthroid) 88 mcg BEFORE BREAKFAST PO ; Start 12/01/18 at 07:00 Pantoprazole (Protonix Tab) 40 mg DAILY@0600 PO ; Start 11/30/18 at 09:00 Rifaximin (Xifaxan) 550 mg BID PO ; Start 11/30/18 at 11:00 Miscellaneous Information 1 cap WITH MEALS XX ; Start 11/30/18 at 12:00; Status Future Hold Heparin Sodium (Porcine) (Heparin (1000 Units/ml)) 4,000 unit AFTER DIALYSIS CATHETER ; Start 11/30/18 at 10:00 Albumin Human 100 ml @ 100 mls/hr WITH DIALYSIS PRN IV SBP <90 DURING DIALYSIS; Start 11/30/18 at 10:00 Sodium Chloride (NS) -To prime the dialy... DIRECTED FOR HD PRN IV HD; Start 11/30/18 at 10:00 Insulin Aspart (Novolog Insulin Pen) NOVOLOG *MILD* ALGORITHM WITH MEALS BEDTIME SC ; Start 11/30/18 at 12:00 Miscellaneous Information 1 ea NOTE XX ; Start 11/30/18 at 10:00 Glucose (Glutose) 15 gm Q15M PRN PO DECREASED GLUCOSE; Start 11/30/18 at 10:00 Glucose (Glutose) 22.5 gm Q15M PRN PO DECREASED GLUCOSE; Start 11/30/18 at 10:00 Dextrose (D50w Syringe) 25 ml Q15M PRN IV DECREASED GLUCOSE; Start 11/30/18 at 10:00 Dextrose (D50w Syringe) 50 ml Q15M PRN IV DECREASED GLUCOSE; Start 11/30/18 at 10:00 Glucagon (Glucagen) 1 mg Q15M PRN IM DECREASED GLUCOSE; Start 11/30/18 at 10:00 Glucose (Glutose) 15 gm Q15M PRN BUCCAL DECREASED GLUCOSE; Start 11/30/18 at 10:00 SHANIKA MASCORRO MD Nov 30, 2018 10:32
[2018-11-30] MEDS: RIFAXIMIN 550 MG TAB PO SCH ×2 (11:00→21:00)
[2018-11-30] MEDS: LACTULOSE 30ML CUP PO SCH ×2 (12:00→18:17)
[2018-11-30] MEDS ORDERED: NON-FORMULARY/PATIENT OWN MED (Lipase-Protease-Amylase* (Creon DR* 6,000) 1 CAP) XX SCH (12:00)
[2018-11-30] MEDS: INSULIN ASPART [NOVOLOG] 3 ML PEN SC SCH ×3 (12:00→21:00)
[2018-11-30] MEDS: HYDROmorphONE 0.5 MG/0.5 ML SYG IV PRN ×2 (15:38→22:20)
[2018-11-30] MEDS: INSULIN GLARGINE [LANTus] (100 UNITS/ML) SYG SC SCH (22:31)
[2018-12-01] VITALS (25 sets, daily range): BP systolic 77–114; BP diastolic 31–70; PULSE 100–123; RESP 12–20
[2018-12-01] MEDS: LACTULOSE 30ML CUP PO SCH ×4 (00:33→18:09)
[2018-12-01] MEDS: HYDROmorphONE 0.5 MG/0.5 ML SYG IV PRN (04:34)
[2018-12-01] MEDS: PANTOPRAZOLE (EC) 40 MG TAB PO SCH (06:58)
[2018-12-01] MEDS: LEVOTHYROXINE 88 MCG TAB PO SCH (07:00)
[2018-12-01] MEDS: INSULIN ASPART [NOVOLOG] 3 ML PEN SC SCH ×4 (08:00→20:45)
--- NOTE | 2018-12-01 08:24 | CONS ---
DATE OF ADMISSION: 11/30/2018 DATE OF CONSULTATION: 12/01/2018 REFERRING PHYSICIAN: Dr. Siri Disla. REASON FOR CONSULTATION: Abdominal pain with question of coils in the splenic artery. HISTORY OF PRESENT ILLNESS: This is a 53-year-old woman with multiple medical problems. She has cir rhosis, end-stage renal disease. She is on dialysis. She has a right IJ Perm-A-Cath, hepatic enceph alopathy, diabetes, hypothyroidism. She is really a very poor historian. She is intermittently orie nted. She came in with abdominal pain of unclear etiology. 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 It is not clear why. I do not see the aneurysm, there. She cannot give me any history regarding this. The only thing she thinks she has had done in the past is had some hardware put into her left foot b ut she does not remember being in the hospital. She does not remember having any coiling done. She said she did not have any gastrointestinal bleeding either from above or below. She does not remembe r having had any major trauma. No car accidents or anything that might have caused the splenic injur y. PAST MEDICAL HISTORY: As above. She has hypertension, diabetes, end-stage renal disease, cirrhosis of the liver, hypercholesterolemia. MEDICATIONS: 1. Lactulose. 2. Rifaximin. 3. Folate. 4. Insulin. 5. Lasix. 6. Pantoprazole. 7. Levothyroxine. 8. Gabapentin. 9. Creon DR. ALLERGIES: PENICILLIN. PAST SURGICAL HISTORY: Significant for hysterectomy, hernia repair, Perm-A-Cath placement and left a nkle surgery. SOCIAL HISTORY: She is a current smoker, smokes everyday. FAMILY HISTORY: Noncontributory. REVIEW OF SYSTEMS: Currently, she says that she still has this abdominal pain, but when I pointed th at it is here, she was sleeping comfortably when I woke her up, and asked her if anything was hurting , she said that she was having abdominal pain, but she denies any chest pain, no shortness of breath, no nausea, vomiting, diarrhea. No recent weight gain or weight loss. No GI bleeding. PHYSICAL EXAMINATION: GENERAL: She is an elderly, looking woman. She speaks [place] fluently. VITAL SIGNS: She has been afebrile. Blood pressure is 101/56, heart rate is 120, respiratory rate i s 20. She is 90% sat on room air. NECK: She has 2+ carotid, radial and brachial pulses bilaterally. No swelling in the arms. She has no arm access. She has a right IJ Perm-A-Cath. LUNGS: Clear. HEART: Regular rate and rhythm. ABDOMEN: Softly distended. There is no focal tenderness and she complains of diffuse pain. EXTREMITIES: She has 2+ femoral, popliteal and DP pulses bilaterally. Feet are warm. There are no ulcerations, no significant edema. LABORATORY DATA: Her white count is 10.6, hemoglobin is 9.6, platelet count is 53. Her lactate is e levated at 2.9. Creatinine is 8.7, potassium 4.4. IMPRESSION AND PLAN: I have reviewed the CT scan. There are some coils in the left upper quadrant, probably in the splenic artery. She may have had some GI bleeding or injury at some point and had th e splenic artery coil to represent any bleeding. I do not see how this would have anything to do wit h her current abdominal pain. She does not have any acute findings. There is no sign of a mesenteri c ischemia, but it is not clear why the coils were placed. She has no idea, but I do suspect this uribe s to do with either trauma or somehow related to her cirrhosis and potentially she may have had some upper GI bleeding leading to the coiling. There is no record of it in our system and she has no clue about how this occurred. I am available if there are any further issues. She had some point probab ly needs an arm access. It will become available for that if currently her platelet count is low, an d she has got these other issues going on. Dictated By: ALLISON LLOYD/DARCIE Conf#: [id number] DID#: [id number] CC: SIRI DISLA; ALLISON BARRON MD; HERMES BURGOS MD; MECCA RENAE MD;*[facility]*
[2018-12-01] MEDS: ALBUMIN HUMAN 25% 100 ML IV PRN ×2 (09:51→10:58)
[2018-12-01] MEDS: FOLIC ACID 1 MG TAB PO SCH ×2 (10:16→12:34)
[2018-12-01] MEDS: RIFAXIMIN 550 MG TAB PO SCH ×3 (10:17→20:34)
--- NOTE | 2018-12-01 11:49 | CONS ---
Assessment/Plan Assessment/Plan Assessment/Plan (Daily) 1. ESRD on HD - pt is currently confused, unable to know HD schedule, 2. acute abdominal pain 3. H/o Hypertension 4. H/o DM II 5. H/o Liver cirrhosis Plan: getting hD now, BP running very low , pt is little confused,- stopped HD after 2 hr, only 200 cc removed ,next HD will be on saturday S/o General surgery consult by Dr. Avery Gutirerez - Continue current meds , IV dilaudid for pain control paracentesis ordered for AM will follow up Consultation Date/Type/Reason Admit Date/Time Nov 30, 2018 at 06:52 Initial Consult Date 11/30/18 Type of Consult NEPHROLOGY Requesting Provider: SIRI DISLA Date/Time of Note DATE: 12/01/18 TIME: 11:49 24 HR Interval Summary Free Text/Dictation getting hD now, BP running very low , pt is little confused, Exam/Review of Systems Exam Vitals Vital Signs Date Temp Pulse Resp B/P (MAP) Pulse Ox O2 O2 Flow FiO2 Time Delivery Rate 12/01/18 2.0 11:48 12/01/18 98.2 100 20 95/31 (52) 97 11:25 11/30/18 Room Air 08:36 Intake and Output 11/30/18 11/30/18 12/01/18 1515:00 23:00 07:00 IntakeIntake Total 50 ml BalanceBalance 50 ml Exam Constitutional: other (disoriented, confused ) Psych: no complaints Head: normocephalic ENMT: nl external ears & nose Neck: supple, non-tender Respiratory: crackles/rales, diminished breath sounds Cardiovascular: regular rate and rhythm, nl pulses, other (Permacath ) Gastrointestinal: soft, non-tender Results Result Diagram: 12/01/18 0436 12/01/18 0809 Results 24hrs Laboratory Tests Test 11/30/18 12:18 11/30/18 17:10 11/30/18 17:18 11/30/18 22:18 Bedside Glucose 167 134 106 Lactic Acid Level 3.3 *H 3.3 *H Test 12/01/18 04:36 12/01/18 07:54 12/01/18 08:09 12/01/18 08:17 White Blood Count 10.6 # Red Blood Count 2.74 L Hemoglobin 9.6 L Hematocrit 28.1 L Mean Corpuscular Volume 102.6 H Mean Corpuscular 35.0 H Hemoglobin Mean Corpuscular 34.2 Hemoglobin Concent Red Cell Distribution 17.5 H Width Platelet Count 53 #L Mean Platelet Volume 14.0 H Immature Granulocytes % 0.300 Neutrophils % 73.0 Segmented Neutrophils 61 % (Manual) Band Neutrophils % 21 H (Manual) Lymphocytes % 13.5 L Lymphocytes % (Manual) 10 L Monocytes % 11.4 H Monocytes % (Manual) 1 Eosinophils % 1.7 Eosinophils % (Manual) 5 Basophils % 0.1 Basophils % (Manual) 1 Myelocytes % (Manual) 1 H Nucleated Red Blood 0.0 Cells % Immature Granulocytes # 0.030 Neutrophils # 7.7 H Neutrophils # (Manual) 6.7 Band Neutrophils # 2.2 H Lymphocytes (Manual) 1.0 Lymphocytes # 1.4 Monocytes # 1.2 H Monocytes # (Manual) 0.1 L Eosinophils # 0.2 Basophils # 0.0 Basophils # (Manual) 0.1 H Myelocytes # 0.1 H Nucleated Red Blood 0.0 Cells # Platelet Estimate DECREASED Poikilocytosis 1+ Anisocytosis 2+ Macrocytosis 2+ Sodium Level 138 Potassium Level 4.4 Chloride Level 107 Carbon Dioxide Level 22 Anion Gap 9 Blood Urea Nitrogen 30 H Creatinine 8.76 H Est Glomerular Filtrat 5 L Rate mL/min Glucose Level 55 #L 194 # Hemoglobin A1c 8.6 H Lactic Acid Level 2.9 *H Calcium Level 8.5 Phosphorus Level 4.9 Magnesium Level 2.0 Ammonia 89 #H Triglycerides Level 70 Cholesterol Level 78 L LDL Cholesterol, 22 Calculated HDL Cholesterol 42 Cholesterol/HDL Ratio 1.8 Thyroid Stimulating 9.160 H Hormone (TSH) Bedside Glucose 49 *L 167 Test 12/01/18 09:52 Lactic Acid Level 2.3 *H Medications Medication Current Medications IV Flush (NS 3 ml) 3 ml PER PROTOCOL IV ; Start 11/30/18 at 08:30 Ondansetron HCl (Zofran Inj) 4 mg Q6H PRN IV NAUSEA/VOMITING; Start 11/30/18 at 08:30 Acetaminophen (Tylenol Tab) 650 mg Q6H PRN PO .PAIN 1-3 OR TEMP; Start 11/30/18 at 08:30 Acetaminophen/ Hydrocodone Bitart ([place] (5/325)) 1 tab Q6H PRN PO .MOD PAIN 4- 6; Start 11/30/18 at 08:30 Morphine Sulfate (morphine) 2 mg Q4H PRN IV .SEVERE PAIN 7-10; Start 11/30/18 at 08:30 Docusate Sodium (Colace) 100 mg Q12H PRN PO .CONSTIPATION; Start 11/30/18 at 08:30 Magnesium Hydroxide (Milk Of Mag) 30 ml DAILY PRN PO .CONSTIPATION; Start 11/30/18 at 08:30 Albuterol/ Ipratropium (Duoneb) 3 ml Q4H RESP THERAPY PRN HHN SHORTNESS OF BREATH; Start 11/30/18 at 08:30 Hydralazine HCl (Apresoline) 10 mg Q6H PRN IV ELEVATED BLOOD PRESSURE; Start 11/30/18 at 08:30 Nitroglycerin (Nitroglycerin (Sl Tab) 0.4 Mg) 1 tab Q5M PRN SL ANGINA; Start 11/30/18 at 08:30 Folic Acid (Folic Acid) 1 mg DAILY PO Last administered on 11/30/18at 10:26; Admin Dose 1 MG; Start 11/30/18 at 09:00 Insulin Glargine (Lantus) 6 units QHS SC Last administered on 11/30/18at 22:31; Admin Dose 6 UNITS; Start 11/30/18 at 21:00 Lactulose (Enulose) 20 gm Q6 PO Last administered on 12/01/18at 06:57; Admin Dose 20 GM; Start 11/30/18 at 12:00 Levothyroxine Sodium (Synthroid) 88 mcg BEFORE BREAKFAST PO ; Start 12/01/18 at 07:00 Pantoprazole (Protonix Tab) 40 mg DAILY@0600 PO Last administered on 12/01/18at 06:58; Admin Dose 40 MG; Start 11/30/18 at 09:00 Rifaximin (Xifaxan) 550 mg BID PO ; Start 11/30/18 at 11:00 Miscellaneous Information 1 cap WITH MEALS XX ; Start 11/30/18 at 12:00; Status Hold Heparin Sodium (Porcine) (Heparin (1000 Units/ml)) 4,000 unit AFTER DIALYSIS CATHETER ; Start 11/30/18 at 10:00 Albumin Human 100 ml @ 100 mls/hr WITH DIALYSIS PRN IV SBP <90 DURING DIALYSIS Last administered on 12/01/18at 10:58; Admin Dose 100 MLS/HR; Start 11/30/18 at 10:00 Sodium Chloride (NS) -To prime the dialy... DIRECTED FOR HD PRN IV HD; Start 11/30/18 at 10:00 Insulin Aspart (Novolog Insulin Pen) NOVOLOG *MILD* ALGORITHM WITH MEALS BEDTIME SC ; Start 11/30/18 at 12:00 Miscellaneous Information 1 ea NOTE XX ; Start 11/30/18 at 10:00 Glucose (Glutose) 15 gm Q15M PRN PO DECREASED GLUCOSE; Start 11/30/18 at 10:00 Glucose (Glutose) 22.5 gm Q15M PRN PO DECREASED GLUCOSE; Start 11/30/18 at 10:00 Dextrose (D50w Syringe) 25 ml Q15M PRN IV DECREASED GLUCOSE; Start 11/30/18 at 10:00 Dextrose (D50w Syringe) 50 ml Q15M PRN IV DECREASED GLUCOSE Last administered on 12/01/18at 07:58; Admin Dose 50 ML; Start 11/30/18 at 10:00 Glucagon (Glucagen) 1 mg Q15M PRN IM DECREASED GLUCOSE; Start 11/30/18 at 10:00 Glucose (Glutose) 15 gm Q15M PRN BUCCAL DECREASED GLUCOSE; Start 11/30/18 at 10:00 Senna (Senokot) 2 tab BID PO ; Start 12/01/18 at 21:00 MECCA RENAE MD Dec 01, 2018 11:49
[2018-12-01] MEDS: HEPARIN 1000 UNITS/ML 10 ML INJ CATHETER SCH (11:53)
--- NOTE | 2018-12-01 12:00 | QN ---
Documentation Comment Symptomatically improved Abdomen much less tender Continue medical management SHANIKA MASCORRO MD Dec 01, 2018 12:00
[2018-12-01] MEDS: HYDROmorphONE 2 MG TAB PO PRN (15:20)
--- NOTE | 2018-12-01 15:28 | PN ---
Date/Time of Note Date/Time of Note DATE: 12/01/18 TIME: 15:18 Assessment/Plan VTE Prophylaxis Risk score (from Nsg)>0 risk: 4 SCD applied (from Nsg): Yes Pharmacological prophylaxis: NA/contraindicated Pharm contraindication: thrombocytopenia Lines/Catheters IV Catheter Type (from Nrsg): permacath Assessment/Plan Assessment/Plan A 53-year-old female coming with abdominal pain. Prior history of cirrhosis, diabetes, hypothyroidism, end-stage renal disease, dialysis with findings of possible splenic infarct and ascending colon thickening, also mild hepatic encephalopathy. #Abdominal pain - CT shows possible splenic infarct with embolization coil. Possible this was done at [facility] but patient and daughter do not remember. Unlikely it is contributing to pain. - Ileus possible, will resume lactulose. Patient having bowel movements. - I'm concerned about SBP also. Will get US-guided paracentesis, send cell count and culture. - Pain control with PO dilaudid. No morphine in ESRD. #Diabetes - Hypoglycemic this morning. Will be very cautious with insulin in ESRD> #Hypothyroid - Cont levothyroxine. #ESRD - Renal consulted. Last HD today 12/01. #Cirrhosis - For HE, continue lactulose and rifaximin. - Thrombocytopenia. DVT: SCDs GI: Protonix Result Diagram: 12/01/18 0436 12/01/18 0809 Subjective 24 Hr Interval Summary Free Text/Dictation No acute overnight events. Patient continues to complain of aching diffuse abdominal pain especially in lateral and lower abdomen, L and R quadrants. Daughter Yumiko at bedside gave additional history. Apparently the patient was transferred to [facility] after she left AMA from here 6 months ago. There she was worked up for liver transplant but she refused to enroll in AA so she is not listed. For 2 weeks she's had nausea and diarrhea so stopped taking her lactulose. About two days prior to admission the abdominal pain worsened, so the daughter brought her in. The patient missed HD this past Saturday and Saturday. According to the daughter, the patient's internal medicine doctor at [facility] is Dr. Lyle Reeves (or Ara) but I was unable to reach him (pager tetryl dissolver operator [phone]) when I called this morning. Exam/Review of Systems Exam Vitals Vital Signs Date Temp Pulse Resp B/P (MAP) Pulse Ox O2 O2 Flow FiO2 Time Delivery Rate 12/01/18 2.0 14:33 12/01/18 100 12 90/66 (74) 99 Nasal 12:30 Cannula 12/01/18 98.2 11:25 Intake and Output 11/30/18 11/30/18 12/01/18 1515:00 23:00 07:00 IntakeIntake Total 50 ml BalanceBalance 50 ml Exam GENERAL: Frail appearing woman lying in bed in considerable discomfort. HEENT: Pupils equal, round, react to light. Extraocular muscles intact. NECK: Supple, no thyromegaly. LUNGS: Clear to auscultation bilaterally. CARDIOVASCULAR: S1, S2 heard. No rubs or gallops. ABDOMEN: Firm, tender to palpation throughout. Moderately distended. Hypoactive bowel sounds. MUSCULOSKELETAL: No lower extremity edema bilaterally. Results Results 24hrs Laboratory Tests Test 11/30/18 17:10 11/30/18 17:18 11/30/18 22:18 12/01/18 04:36 Bedside Glucose 134 106 Lactic Acid Level 3.3 *H 3.3 *H 2.9 *H White Blood Count 10.6 # Red Blood Count 2.74 L Hemoglobin 9.6 L Hematocrit 28.1 L Mean Corpuscular Volume 102.6 H Mean Corpuscular 35.0 H Hemoglobin Mean Corpuscular 34.2 Hemoglobin Concent Red Cell Distribution 17.5 H Width Platelet Count 53 #L Mean Platelet Volume 14.0 H Immature Granulocytes % 0.300 Neutrophils % 73.0 Segmented Neutrophils 61 % (Manual) Band Neutrophils % 21 H (Manual) Lymphocytes % 13.5 L Lymphocytes % (Manual) 10 L Monocytes % 11.4 H Monocytes % (Manual) 1 Eosinophils % 1.7 Eosinophils % (Manual) 5 Basophils % 0.1 Basophils % (Manual) 1 Myelocytes % (Manual) 1 H Nucleated Red Blood 0.0 Cells % Immature Granulocytes # 0.030 Neutrophils # 7.7 H Neutrophils # (Manual) 6.7 Band Neutrophils # 2.2 H Lymphocytes (Manual) 1.0 Lymphocytes # 1.4 Monocytes # 1.2 H Monocytes # (Manual) 0.1 L Eosinophils # 0.2 Basophils # 0.0 Basophils # (Manual) 0.1 H Myelocytes # 0.1 H Nucleated Red Blood 0.0 Cells # Platelet Estimate DECREASED Poikilocytosis 1+ Anisocytosis 2+ Macrocytosis 2+ Sodium Level 138 Potassium Level 4.4 Chloride Level 107 Carbon Dioxide Level 22 Anion Gap 9 Blood Urea Nitrogen 30 H Creatinine 8.76 H Est Glomerular Filtrat 5 L Rate mL/min Glucose Level 55 #L Hemoglobin A1c 8.6 H Calcium Level 8.5 Phosphorus Level 4.9 Magnesium Level 2.0 Ammonia 89 #H Triglycerides Level 70 Cholesterol Level 78 L LDL Cholesterol, 22 Calculated HDL Cholesterol 42 Cholesterol/HDL Ratio 1.8 Thyroid Stimulating 9.160 H Hormone (TSH) Test 12/01/18 07:54 12/01/18 08:09 12/01/18 08:17 12/01/18 09:52 Bedside Glucose 49 *L 167 Glucose Level 194 # Lactic Acid Level 2.3 *H Test 12/01/18 12:03 Bedside Glucose 93 Medications Medication Current Medications IV Flush (NS 3 ml) 3 ml PER PROTOCOL IV ; Start 11/30/18 at 08:30 Ondansetron HCl (Zofran Inj) 4 mg Q6H PRN IV NAUSEA/VOMITING; Start 11/30/18 at 08:30 Acetaminophen (Tylenol Tab) 650 mg Q6H PRN PO .PAIN 1-3 OR TEMP; Start 11/30/18 at 08:30 Acetaminophen/ Hydrocodone Bitart ([place] (5/325)) 1 tab Q6H PRN PO .MOD PAIN 4- 6; Start 11/30/18 at 08:30 Morphine Sulfate (morphine) 2 mg Q4H PRN IV .SEVERE PAIN 7-10; Start 11/30/18 at 08:30 Docusate Sodium (Colace) 100 mg Q12H PRN PO .CONSTIPATION; Start 11/30/18 at 08:30 Magnesium Hydroxide (Milk Of Mag) 30 ml DAILY PRN PO .CONSTIPATION; Start 11/30/18 at 08:30 Albuterol/ Ipratropium (Duoneb) 3 ml Q4H RESP THERAPY PRN HHN SHORTNESS OF BREATH; Start 11/30/18 at 08:30 Hydralazine HCl (Apresoline) 10 mg Q6H PRN IV ELEVATED BLOOD PRESSURE; Start 11/30/18 at 08:30 Nitroglycerin (Nitroglycerin (Sl Tab) 0.4 Mg) 1 tab Q5M PRN SL ANGINA; Start at 08:30 Folic Acid (Folic Acid) 1 mg DAILY PO Last administered on 12/01/18 12:34; Admin Dose 1 MG; Start 11/30/18 at 09:00 Insulin Glargine (Lantus) 6 units QHS SC Last administered on 11/30/18at 22:31; Admin Dose 6 UNITS; Start 11/30/18 at 21:00 Lactulose (Enulose) 20 gm Q6 PO Last administered on 12/01/18 12:34; Admin Dose 20 GM; Start 11/30/18 at 12:00 Levothyroxine Sodium (Synthroid) 88 mcg BEFORE BREAKFAST PO ; Start 12/01/18 at 07:00 Pantoprazole (Protonix Tab) 40 mg DAILY@0600 PO Last administered on 12/01/18at 06:58; Admin Dose 40 MG; Start 11/30/18 at 09:00 Rifaximin (Xifaxan) 550 mg BID PO Last administered on 12/01/18 12:34; Admin Dose 550 MG; Start 11/30/18 at 11:00 Miscellaneous Information 1 cap WITH MEALS XX ; Start 11/30/18 at 12:00; Status Hold Heparin Sodium (Porcine) (Heparin (1000 Units/ml)) 4,000 unit AFTER DIALYSIS CATHETER Last administered on 12/01/18at 11:53; Admin Dose 3,200 UNIT; Start 11/30/18 at 10:00 Albumin Human 100 ml @ 100 mls/hr WITH DIALYSIS PRN IV SBP <90 DURING DIALYSIS Last administered on 12/01/18at 10:58; Admin Dose 100 MLS/HR; Start 11/30/18 at 10:00 Sodium Chloride (NS) -To prime the dialy... DIRECTED FOR HD PRN IV HD; Start 11/30/18 at 10:00 Insulin Aspart (Novolog Insulin Pen) NOVOLOG *MILD* ALGORITHM WITH MEALS BEDTIME SC ; Start 11/30/18 at 12:00 Miscellaneous Information 1 ea NOTE XX ; Start 11/30/18 at 10:00 Glucose (Glutose) 15 gm Q15M PRN PO DECREASED GLUCOSE; Start 11/30/18 at 10:00 Glucose (Glutose) 22.5 gm Q15M PRN PO DECREASED GLUCOSE; Start 11/30/18 at 10:00 Dextrose (D50w Syringe) 25 ml Q15M PRN IV DECREASED GLUCOSE; Start 11/30/18 at 10:00 Dextrose (D50w Syringe) 50 ml Q15M PRN IV DECREASED GLUCOSE Last administered on 12/01/18at 07:58; Admin Dose 50 ML; Start 11/30/18 at 10:00 Glucagon (Glucagen) 1 mg Q15M PRN IM DECREASED GLUCOSE; Start 11/30/18 at 10:00 Glucose (Glutose) 15 gm Q15M PRN BUCCAL DECREASED GLUCOSE; Start 11/30/18 at 10:00 Senna (Senokot) 2 tab BID PO ; Start 12/01/18 at 21:00 Hydromorphone HCl (Dilaudid) 2 mg Q3H PRN PO BREAKTHROUGH PAIN; Start 12/01/18 at 15:30; Status UNV ALLISON RAMIREZ MD Dec 01, 2018 15:28
[2018-12-01] MEDS: SENNA TAB PO SCH (20:34)
[2018-12-01] MEDS: INSULIN GLARGINE [LANTus] (100 UNITS/ML) SYG SC SCH (20:45)
[2018-12-02] VITALS (12 sets, daily range): BP systolic 99–117; BP diastolic 55–62; PULSE 97–119; RESP 20
[2018-12-02] MEDS: LACTULOSE 30ML CUP PO SCH ×4 (00:07→17:23)
[2018-12-02] MEDS: PANTOPRAZOLE (EC) 40 MG TAB PO SCH (05:42)
[2018-12-02] MEDS: LEVOTHYROXINE 88 MCG TAB PO SCH (07:00)
[2018-12-02] MEDS: SENNA TAB PO SCH ×2 (08:07→21:39)
[2018-12-02] MEDS: FOLIC ACID 1 MG TAB PO SCH (08:07)
[2018-12-02] MEDS: RIFAXIMIN 550 MG TAB PO SCH ×2 (08:07→21:39)
[2018-12-02] MEDS: INSULIN ASPART [NOVOLOG] 3 ML PEN SC SCH ×4 (08:25→21:00)
--- NOTE | 2018-12-02 08:59 | QN ---
Documentation Comment Resting comfortably Abdominal examination is benign Awaiting paracentesis SHANIKA MASCORRO MD Dec 02, 2018 08:59
[2018-12-02] MEDS ORDERED: LIDOCAINE 1% (MPF) 5 ML VIAL ONE (10:38)
[2018-12-02] MEDS: HYDROmorphONE 2 MG TAB PO PRN (12:50)
--- NOTE | 2018-12-02 15:08 | PN ---
Date/Time of Note Date/Time of Note DATE: 12/02/18 TIME: 14:52 Assessment/Plan VTE Prophylaxis Risk score (from Nsg)>0 risk: 3 SCD applied (from Nsg): Yes Pharmacological prophylaxis: NA/contraindicated Pharm contraindication: blood coag disorder Lines/Catheters IV Catheter Type (from Nrs): Permacath Assessment/Plan Assessment/Plan A 53-year-old female coming with lethargy and abdominal pain. Prior history of cirrhosis, diabetes, hypothyroidism, end-stage renal disease. Found to have SBP #Abdominal pain #SBP - paracentesis 12/02/18 with >250 PMNs - Ascites culture pending. Will start ceftriaxone q24h and albumin on day 1 and day 3. - CT shows possible splenic infarct with embolization coil. According to [facility] resident this was done in 2012. Unlikely it is contributing to pain. - Will resume lactulose. Goal 3-4 bowel movements per day. . - Pain control with PO dilaudid. No morphine in ESRD. #Diabetes - Holding all insulin. #Hypothyroid - Cont levothyroxine. #ESRD - Renal consulted. Last HD 12/01. #Cirrhosis - For HE, continue lactulose and rifaximin. - Thrombocytopenia. DVT: SCDs GI: Protonix Result Diagram: 12/02/18 0514 12/02/18 0514 Subjective 24 Hr Interval Summary Free Text/Dictation No acute overnight events. Patient had paracentesis this morning. Spoke to Dr. Reeves, medicine resident at [facility]. He confirmed the patient had a splenic artery embolization in 2012. He agreed that the patient does not need inter-hospital transfer. She is not currently listed for liver transplant due to medication noncompliance. Exam/Review of Systems Exam Vitals Vital Signs Date Temp Pulse Resp B/P (MAP) Pulse Ox O2 O2 Flow FiO2 Time Delivery Rate 12/02/18 104 12:01 12/02/18 98.0 20 117/62 93 11:55 (80) 12/02/18 2.0 05:21 12/01/18 Nasal 12:30 Cannula Intake and Output 12/01/18 12/01/18 12/02/18 1515:00 23:00 07:00 IntakeIntake Total 650 ml 420 ml OutputOutput Total 1300 ml BalanceBalance -1300 ml 650 ml 420 ml Exam GENERAL: Frail appearing woman lying in bed in considerable discomfort. HEENT: Pupils equal, round, react to light. Extraocular muscles intact. NECK: Supple, no thyromegaly. LUNGS: Clear to auscultation bilaterally. CARDIOVASCULAR: S1, S2 heard. No rubs or gallops. ABDOMEN: Firm, tender to palpation throughout. Moderately distended. Hypoactive bowel sounds. MUSCULOSKELETAL: No lower extremity edema bilaterally. Results Results 24hrs Laboratory Tests Test 12/01/18 17:27 12/01/18 20:25 12/02/18 05:14 12/02/18 07:03 Bedside Glucose 81 87 52 L White Blood Count 10.0 Red Blood Count 2.42 L Hemoglobin 8.5 L Hematocrit 24.7 L Mean Corpuscular 102.1 H Volume Mean Corpuscular 35.1 H Hemoglobin Mean Corpuscular 34.4 Hemoglobin Concent Red Cell Distribution 17.3 H Width Platelet Count 58 L Mean Platelet Volume 13.2 H Immature Granulocytes 0.600 H % Neutrophils % 68.3 Lymphocytes % 13.9 L Monocytes % 16.0 H Eosinophils % 0.9 Basophils % 0.3 Nucleated Red Blood 0.0 Cells % Immature Granulocytes 0.060 H # Neutrophils # 6.8 Lymphocytes # 1.4 Monocytes # 1.6 H Eosinophils # 0.1 Basophils # 0.0 Nucleated Red Blood 0.0 Cells # Sodium Level 138 Potassium Level 3.6 Chloride Level 101 Carbon Dioxide Level 25 Anion Gap 12 Blood Urea Nitrogen 19 # Creatinine 5.88 #H Est Glomerular 7 L Filtrat Rate mL/min Glucose Level 38 #*L Calcium Level 8.6 Test 12/02/18 07:20 12/02/18 07:56 12/02/18 09:57 12/02/18 12:17 Bedside Glucose 237 H 174 149 Body Fluid Type PARACENTHESIS Body Fluid Volume 1000.0 Body Fluid Color YELLOW Body Fluid Appearance CLOUDY Body Fluid WBC 7273 Body Fluid RBC (Auto) 2000 Body Fluid 87.1 Polynuclear WBCs (%) Body Fluid 12.9 Mononuclear Cells % Auto Body Fluid Total < 2.0 Protein Medications Medication Current Medications IV Flush (NS 3 ml) 3 ml PER PROTOCOL IV ; Start 11/30/18 at 08:30 Ondansetron HCl (Zofran Inj) 4 mg Q6H PRN IV NAUSEA/VOMITING; Start 11/30/18 at 08:30 Acetaminophen (Tylenol Tab) 650 mg Q6H PRN PO .PAIN 1-3 OR TEMP; Start 11/30/18 at 08:30 Acetaminophen/ Hydrocodone Bitart ([place] (5/325)) 1 tab Q6H PRN PO .MOD PAIN 4- 6; Start 11/30/18 at 08:30 Docusate Sodium (Colace) 100 mg Q12H PRN PO .CONSTIPATION; Start 11/30/18 at 08:30 Magnesium Hydroxide (Milk Of Mag) 30 ml DAILY PRN PO .CONSTIPATION; Start 11/30/18 at 08:30 Albuterol/ Ipratropium (Duoneb) 3 ml Q4H RESP THERAPY PRN HHN SHORTNESS OF BREATH; Start 11/30/18 at 08:30 Hydralazine HCl (Apresoline) 10 mg Q6H PRN IV ELEVATED BLOOD PRESSURE; Start 11/30/18 at 08:30 Nitroglycerin (Nitroglycerin (Sl Tab) 0.4 Mg) 1 tab Q5M PRN SL ANGINA; Start 11/30/18 at 08:30 Folic Acid (Folic Acid) 1 mg DAILY PO Last administered on 12/02/18at 08:07; Admin Dose 1 MG; Start 11/30/18 at 09:00 Lactulose (Enulose) 20 gm Q6 PO Last administered on 12/02/18at 12:19; Admin Dose 20 GM; Start 11/30/18 at 12:00 Levothyroxine Sodium (Synthroid) 88 mcg BEFORE BREAKFAST PO ; Start 12/01/18 at 07:00 Pantoprazole (Protonix Tab) 40 mg DAILY@0600 PO Last administered on 12/02/18at 05:42; Admin Dose 40 MG; Start 11/30/18 at 09:00 Rifaximin (Xifaxan) 550 mg BID PO Last administered on 12/02/18at 08:07; Admin Dose 550 MG; Start 11/30/18 at 11:00 Miscellaneous Information 1 cap WITH MEALS XX ; Start 11/30/18 at 12:00; Status Hold Heparin Sodium (Porcine) (Heparin (1000 Units/ml)) 4,000 unit AFTER DIALYSIS CATHETER Last administered on 12/01/18at 11:53; Admin Dose 3,200 UNIT; Start 11/30/18 at 10:00 Albumin Human 100 ml @ 100 mls/hr WITH DIALYSIS PRN IV SBP <90 DURING DIALYSIS Last administered on 12/01/18 10:58; Admin Dose 100 MLS/HR; Start 11/30/18 at 10:00 Sodium Chloride (NS) -To prime the dialy... DIRECTED FOR HD PRN IV HD; Start 11/30/18 at 10:00 Insulin Aspart (Novolog Insulin Pen) NOVOLOG *MILD* ALGORITHM WITH MEALS BEDTIME SC Last administered on 12/02/18 13:26; Admin Dose 1 UNIT; Start 11/30/18 at 12:00 Miscellaneous Information 1 ea NOTE XX ; Start 11/30/18 at 10:00 Glucose (Glutose) 15 gm Q15M PRN PO DECREASED GLUCOSE; Start 11/30/18 at 10:00 Glucose (Glutose) 22.5 gm Q15M PRN PO DECREASED GLUCOSE; Start 11/30/18 at 10:00 Dextrose (D50w Syringe) 25 ml Q15M PRN IV DECREASED GLUCOSE Last administered on 12/02/18 07:07; Admin Dose 25 ML; Start 11/30/18 at 10:00 Dextrose (D50w Syringe) 50 ml Q15M PRN IV DECREASED GLUCOSE Last administered on 12/01/18 07:58; Admin Dose 50 ML; Start 11/30/18 at 10:00 Glucagon (Glucagen) 1 mg Q15M PRN IM DECREASED GLUCOSE; Start 11/30/18 at 10:00 Glucose (Glutose) 15 gm Q15M PRN BUCCAL DECREASED GLUCOSE; Start 11/30/18 at 10:00 Senna (Senokot) 2 tab BID PO Last administered on 12/02/18 08:07; Admin Dose 2 TAB; Start 12/01/18 at 21:00 Hydromorphone HCl (Dilaudid) 2 mg Q3H PRN PO BREAKTHROUGH PAIN Last administered on 12/02/18 12:50; Admin Dose 2 MG; Start 12/01/18 at 15:30 ALLISON RAMIREZ MD Dec 02, 2018 15:02
--- NOTE | 2018-12-02 15:13 | ERD ---
ER Documentation Chief Complaint Chief Complaint sudden onset sharp mid/left upper ap 0200 similar to previous pancreatitis HPI 53-year-old female with a history of cirrhosis and ESRD on hemodialysis brought in by ambulance for sudden onset of left upper abdominal pain. Patient states that many years ago she had pancreatitis and this feels exactly like that. She is complaining of severe sharp abdominal pain, 10 out of 10, radiating across her left abdomen. No associated nausea, vomiting, fever, chills, diarrhea or constipation. She denies any recent melena or hematochezia. Patient is actually a very poor historian and further history is limited. ROS All systems reviewed and are negative except as per history of present illness. Medications Home Meds Active Scripts Lactulose* (Lactulose*) 20 Gm/30 Ml Solution, 20 GM PO Q6 for 30 Days, #1 BOTTLE titrate to 3-4 BMs/day Prov:GEE BAKER MD 02/12/18 Rifaximin* (Xifaxan*) 550 Mg Tablet, 550 MG PO BID, #40 TAB Prov:ROSALBA MADSEN 01/22/18 Folic Acid* (Folic Acid*) 1 Mg Tablet, 1 MG PO DAILY, #60 TAB Prov:ROSALBA MADSEN 01/22/18 Reported Medications Insulin Glargine* (Lantus*) 100 Unit/Ml Soln, 6 UNIT SC QHS, #1 VIAL 04/30/18 Furosemide* (Furosemide*) 80 Mg Tablet, 80 MG PO DAILY, #30 TAB 04/30/18 Pantoprazole* (Pantoprazole*) 40 Mg Tablet., 40 MG PO DAILY, TAB 04/30/18 Levothyroxine Sodium* (Levothyroxine Sodium*) 88 Mcg Tablet, 88 MCG PO BEFORE BREAKFAST, #30 TAB 04/30/18 Gabapentin* (Gabapentin*) 300 Mg Capsule, 300 MG PO DAILY, #60 CAP 04/30/18 Rdhsnk-Cizscpxw-Sjzosnm* (Joshua ERICKSON* 6,000) 6,000 L-19,000-30,000 Unit Capsule.dr, 1 CAP PO WITH MEALS, CAP 10/04/17 Allergies Allergies: Coded Allergies: Penicillins (Verified Allergy, Unknown, 01/14/18) PMhx/Soc History of Surgery: Yes (hysterectomy, left ankle sx, permacath placement, hernia sx) Anesthesia Reaction: No Hx Neurological Disorder: Yes (Neurophathy) Hx Respiratory Disorders: No Hx Cardiac Disorders: No Hx Psychiatric Problems: No Hx Miscellaneous Medical Probl: Yes ( Cirrhosis, end-stage renal disease on dialysis, prior UTI, hepatic encepha) Hx Alcohol Use: Yes (20 YEARS AGO) Hx Substance Use: No Hx Tobacco Use: Yes (1 STICK/DAY) Smoking Status: Current every day smoker FmHx Unable to obtain Physical Exam Vitals Vital Signs Date Temp Pulse Resp B/P (MAP) Pulse Ox O2 O2 Flow FiO2 Time Delivery Rate 11/30/18 95 18 87/64 (72) 95 Room Air 05:27 11/30/18 99.8 95 45 120/83 98 03:30 (95) Physical Exam Const: Significant distress due to pain, moaning and crying Head: Atraumatic Eyes: Normal Conjunctiva ENT: Normal External Ears, Nose and Mouth. Poor dentition Neck: Full range of motion. No meningismus. Resp: Clear to auscultation bilaterally Cardio: Regular rate and rhythm, no murmurs Abd: Soft, distended with ascites, tender to palpation in the left upper quadrant with guarding but no rebound. Normal bowel sounds Skin: No petechiae or rashes Back: No midline or flank tenderness Ext: No cyanosis, or edema Neur: Awake and alert, normal speech, moving all extremities Psych: Anxious Result Diagram: 12/02/1814 12/02/18513 Results 24 hrs Laboratory Tests Test 11/30/18 03:49 11/30/18 03:50 Prothrombin Time 20.0 Sec Prothrombin Time Ratio 1.6 INR International Normalized Ratio 1.69 Activated Partial Thromboplast Time 38.0 Sec Ammonia 33 umol/l White Blood Count 3.4 10^3/ul Red Blood Count 3.14 10^6/ul Hemoglobin 10.9 g/dl Hematocrit 32.7 % Mean Corpuscular Volume 104.1 fl Mean Corpuscular Hemoglobin 34.7 pg Mean Corpuscular Hemoglobin Concent 33.3 g/dl Red Cell Distribution Width 17.4 % Platelet Count 40 10^3/UL Mean Platelet Volume 14.4 fl Immature Granulocytes % 0.300 % Neutrophils % % Segmented Neutrophils % (Manual) 47 % Band Neutrophils % (Manual) 10 % Lymphocytes % % Lymphocytes % (Manual) 34 % Monocytes % % Monocytes % (Manual) 1 % Eosinophils % % Eosinophils % (Manual) 7 % Basophils % % Promyelocytes % (Manual) 1 % Nucleated Red Blood Cells % 1 % Immature Granulocytes # 0.010 10^3/ul Neutrophils # 10^3/ul Neutrophils # (Manual) 1.6 10^3/ul Band Neutrophils # 0.3 10^3/ul Lymphocytes (Manual) 1.1 10^3/ul Lymphocytes # 10^3/ul Monocytes # 10^3/ul Monocytes # (Manual) 0.0 10^3/ul Eosinophils # 10^3/ul Basophils # 10^3/ul Promyelocytes # 0.0 10^3/ul Nucleated Red Blood Cells # 10^3/ul Platelet Estimate SIG DECREASED Giant Platelets 2 % Polychromasia 1+ Poikilocytosis 2+ Anisocytosis 3+ Macrocytosis 3+ Sodium Level 137 mmol/L Potassium Level 4.5 mmol/L Chloride Level 103 mmol/L Carbon Dioxide Level 23 mmol/L Anion Gap 11 Blood Urea Nitrogen 23 mg/dl Creatinine 7.46 mg/dl Est Glomerular Filtrat Rate mL/min 6 mL/min Glucose Level 213 mg/dl Calcium Level 8.4 mg/dl Total Bilirubin 1.6 mg/dl Direct Bilirubin 0.00 mg/dl Indirect Bilirubin 1.6 mg/dl Aspartate Amino Transf (AST/SGOT) 25 IU/L Alanine Aminotransferase (ALT/SGPT) < 6 IU/L Alkaline Phosphatase 185 IU/L Total Protein 7.5 g/dl Albumin 2.8 g/dl Globulin 4.70 g/dl Albumin/Globulin Ratio 0.59 Lipase < 10 U/L Free Thyroxine 1.32 ng/dl Current Medications Medications Dose Sig/Julian Start Time Status Last (Trade) Ordered Route PRN Stop Time Admin Dose Reason Admin Sodium 1,000 ml @ Q1H STAT 11/30/18 DC 11/30/18 Chloride 1,000 mls/hr IV 03:34 11/30/18 03:42 04:33 Morphine 4 mg ONCE STAT 11/30/18 DC 11/30/18 Sulfate IV 03:34 11/30/18 03:42 (morphine) 03:36 Ondansetron 4 mg ONCE STAT 11/30/18 DC 11/30/18 HCl (Zofran IV 03:34 11/30/18 03:42 Inj) 03:36 Ondansetron 4 mg ONCE STAT 11/30/18 DC 11/30/18 HCl (Zofran IV 03:52 11/30/18 04:02 Inj) 03:53 0.5 mg ONCE STAT 11/30/18 DC 11/30/18 Hydromorphone IV 05:01 11/30/18 05:16 HCl 05:02 (Dilaudid) Sodium 1,000 ml @ Q1H STAT 11/30/18 DC 11/30/18 Chloride 1,000 mls/hr IV 06:48 11/30/18 07:00 07:47 IV Flush 10 ml STK-MED 11/30/18 DC (NS 10 ml) ONCE .ROUTE 06:48 11/30/18 06:49 Sodium 100 ml @ ud STK-MED 11/30/18 DC Chloride ONCE .ROUTE 06:48 11/30/18 06:49 Iodixanol 100 ml STK-MED 11/30/18 DC (Visipaque ONCE .ROUTE 06:48 11/30/18 Loc) 06:49 Procedures/MDM EMERGENT LABS AND DIAGNOSTIC STUDIES: Lab Results above were reviewed and interpreted by me. CBC: Pancytopenia CMP: Elevated BUN and creatinine consistent with chronic renal failure. Elevated bilirubin, likely secondary to cirrhosis. No evidence of electrolyte abnormality, renal failure, hypoglycemia Ammonia level elevated, consistent with hyperammonemia Lipase: no evidence of pancreatitis Troponin within normal limits, not indicative of cardiac ischemia UA: Pending 12-lead EKG was interpreted by Rodolfo Matamoros MD: Sinus tachycardia at 103 bpm Normal axis Normal intervals No acute ST or T wave changes suggestive of acute ischemia or STEMI. Radiology Results as interpreted by Radiology below were reviewed by Janes Matamoros MD: CT abdomen and pelvis shows evidence of coils in the spleen with associated splenic infarct, unknown chronicity. Otherwise no acute abnormality seen. CTA abdomen and pelvis pending Chest x-ray shows no acute abnormalities Initial Nursing notes reviewed. Previous Medical Records requested via the Electronic Health Record. EMERGENCY DEPARTMENT COURSE / MEDICAL DECISION MAKING: Patient is presenting with severe abdominal pain of unclear etiology. Labs showed evidence of renal failure and liver disease with pancytopenia. There was no evidence of pancreatitis. CT of the abdomen and pelvis was done without contrast initially with no acute abnormalities that would explain her pain. Given her localized pain, my suspicion for SBP is low. However given her severe pain, I cannot rule out aortic dissection versus ischemic bowel. CTA of the abdomen and pelvis were ordered and this exam is still pending at time of admission. Patient will be admitted for intractable abdominal pain and further workup. Accepting Care Team: Current data and ongoing care discussed. Time: Time of admission Primary Provider: Outstanding Data: CTA A/P Departure Diagnosis: Primary Impression: Intractable abdominal pain Additional Impression: Cirrhosis with alcoholism Ascites presence: with ascites Qualified Codes: K70.31 - Alcoholic cirrhosis of liver with ascites Condition: JEFFERY Jane MD Dec 02, 2018 15:13
[2018-12-02] MEDS: ALBUMIN HUMAN 25% 100 ML IV SCH ×2 (15:53→18:31)
[2018-12-02] MEDS: CEFTRIAXONE 1 GM/50 ML (PMX) 50 ML IVPB SCH (18:00)
--- NOTE | 2018-12-02 18:32 | CONS ---
Assessment/Plan Assessment/Plan Assessment/Plan (Daily) 1. ESRD on HD - pt is currently confused, unable to know HD schedule, 2. acute abdominal pain 3. H/o Hypertension 4. H/o DM II 5. H/o Liver cirrhosis Plan: Yesterday pt did not tolerate HD due to low BP,- only 200 cc removed, Plan for Hd tomorrow, will use albumin for BP support, plan is to do 1 L UF as tolerated S/o General surgery consult by Dr. Avery Gutierrez - s/p Paracentesis 3.1 L removed on 12/02/18 Continue current meds , IV dilaudid for pain control will follow up Consultation Date/Type/Reason Admit Date/Time Dec 01, 2018 at 14:56 Initial Consult Date 11/30/18 Type of Consult NEPHROLOGY Requesting Provider: SIRI DISLA Date/Time of Note DATE: 12/02/18 TIME: 18:32 24 HR Interval Summary Free Text/Dictation Yesterday pt did not tolerate HD due to low BP,afebrile, BP stable Exam/Review of Systems Exam Vitals Vital Signs Date Temp Pulse Resp B/P (MAP) Pulse Ox O2 O2 Flow FiO2 Time Delivery Rate 12/02/18 2.0 16:49 12/02/18 96 16:18 12/02/18 100 16:01 12/02/18 98.2 20 99/60 (73) 15:19 12/01/18 Nasal 12:30 Cannula Intake and Output 12/01/18 12/01/18 12/02/18 1515:00 23:00 07:00 IntakeIntake Total 650 ml 420 ml OutputOutput Total 1300 ml BalanceBalance -1300 ml 650 ml 420 ml Exam Constitutional: other (disoriented, confused ) Psych: no complaints Head: normocephalic ENMT: nl external ears & nose Neck: supple, non-tender Respiratory: crackles/rales, diminished breath sounds Cardiovascular: regular rate and rhythm, nl pulses, other (Permacath ) Gastrointestinal: soft, non-tender Results Result Diagram: 12/02/18 0514 12/02/18 0514 Results 24hrs Laboratory Tests Test 12/01/18 20:25 12/02/18 05:14 12/02/18 07:03 12/02/18 07:20 Bedside Glucose 87 52 L 237 H White Blood Count 10.0 Red Blood Count 2.42 L Hemoglobin 8.5 L Hematocrit 24.7 L Mean Corpuscular 102.1 H Volume Mean Corpuscular 35.1 H Hemoglobin Mean Corpuscular 34.4 Hemoglobin Concent Red Cell Distribution 17.3 H Width Platelet Count 58 L Mean Platelet Volume 13.2 H Immature Granulocytes 0.600 H % Neutrophils % 68.3 Lymphocytes % 13.9 L Monocytes % 16.0 H Eosinophils % 0.9 Basophils % 0.3 Nucleated Red Blood 0.0 Cells % Immature Granulocytes 0.060 H # Neutrophils # 6.8 Lymphocytes # 1.4 Monocytes # 1.6 H Eosinophils # 0.1 Basophils # 0.0 Nucleated Red Blood 0.0 Cells # Sodium Level 138 Potassium Level 3.6 Chloride Level 101 Carbon Dioxide Level 25 Anion Gap 12 Blood Urea Nitrogen 19 # Creatinine 5.88 #H Est Glomerular 7 L Filtrat Rate mL/min Glucose Level 38 #*L Calcium Level 8.6 Test 12/02/18 07:56 12/02/18 09:57 12/02/18 12:17 12/02/18 17:12 Bedside Glucose 174 149 143 Body Fluid Type PARACENTHESIS Body Fluid Volume 1000.0 Body Fluid Color YELLOW Body Fluid Appearance CLOUDY Body Fluid WBC 7273 Body Fluid RBC (Auto) 2000 Body Fluid 87.1 Polynuclear WBCs (%) Body Fluid 12.9 Mononuclear Cells % Auto Body Fluid Total < 2.0 Protein Medications Medication Current Medications IV Flush (NS 3 ml) 3 ml PER PROTOCOL IV ; Start 11/30/18 at 08:30 Ondansetron HCl (Zofran Inj) 4 mg Q6H PRN IV NAUSEA/VOMITING; Start 11/30/18 at 08:30 Acetaminophen (Tylenol Tab) 650 mg Q6H PRN PO .PAIN 1-3 OR TEMP; Start 11/30/18 at 08:30 Acetaminophen/ Hydrocodone Bitart ([place] (5/325)) 1 tab Q6H PRN PO .MOD PAIN 4- 6; Start 11/30/18 at 08:30 Docusate Sodium (Colace) 100 mg Q12H PRN PO .CONSTIPATION; Start 11/30/18 at 08:30 Magnesium Hydroxide (Milk Of Mag) 30 ml DAILY PRN PO .CONSTIPATION; Start 11/30/18 at 08:30 Albuterol/ Ipratropium (Duoneb) 3 ml Q4H RESP THERAPY PRN HHN SHORTNESS OF BREATH Last administered on 12/02/18 16:09; Admin Dose 3 ML; Start 11/30/18 at 08:30 Hydralazine HCl (Apresoline) 10 mg Q6H PRN IV ELEVATED BLOOD PRESSURE; Start 11/30/18 at 08:30 Nitroglycerin (Nitroglycerin (Sl Tab) 0.4 Mg) 1 tab Q5M PRN SL ANGINA; Start 11/30/18 at 08:30 Folic Acid (Folic Acid) 1 mg DAILY PO Last administered on 12/02/18 08:07; Admin Dose 1 MG; Start 11/30/18 at 09:00 Lactulose (Enulose) 20 gm Q6 PO Last administered on 12/02/18 17:23; Admin Dose 20 GM; Start 11/30/18 at 12:00 Levothyroxine Sodium (Synthroid) 88 mcg BEFORE BREAKFAST PO ; Start 12/01/18 at 07:00 Pantoprazole (Protonix Tab) 40 mg DAILY@0600 PO Last administered on 12/02/18 05:42; Admin Dose 40 MG; Start 11/30/18 at 09:00 Rifaximin (Xifaxan) 550 mg BID PO Last administered on 12/02/18 08:07; Admin Dose 550 MG; Start 11/30/18 at 11:00 Miscellaneous Information 1 cap WITH MEALS XX ; Start 11/30/18 at 12:00; Status Hold Heparin Sodium (Porcine) (Heparin (1000 Units/ml)) 4,000 unit AFTER DIALYSIS CATHETER Last administered on 12/01/18 11:53; Admin Dose 3,200 UNIT; Start 11/30/18 at 10:00 Albumin Human 100 ml @ 100 mls/hr WITH DIALYSIS PRN IV SBP <90 DURING DIALYSIS Last administered on 12/01/18 10:58; Admin Dose 100 MLS/HR; Start 11/30/18 at 10:00 Sodium Chloride (NS) -To prime the dialy... DIRECTED FOR HD PRN IV HD; Start 11/30/18 at 10:00 Insulin Aspart (Novolog Insulin Pen) NOVOLOG *MILD* ALGORITHM WITH MEALS B EDTIME SC Last administered on 3/5/19at 17:53; Admin Dose 1 UNIT; Start 11/30/18 at 12:00 Miscellaneous Information 1 ea NOTE XX ; Start 11/30/18 at 10:00 Glucose (Glutose) 15 gm Q15M PRN PO DECREASED GLUCOSE; Start 11/30/18 at 10:00 Glucose (Glutose) 22.5 gm Q15M PRN PO DECREASED GLUCOSE; Start 11/30/18 at 10:00 Dextrose (D50w Syringe) 25 ml Q15M PRN IV DECREASED GLUCOSE Last administered on 12/02/18at 07:07; Admin Dose 25 ML; Start 11/30/18 at 10:00 Dextrose (D50w Syringe) 50 ml Q15M PRN IV DECREASED GLUCOSE Last administered on 12/01/18at 07:58; Admin Dose 50 ML; Start 11/30/18 at 10:00 Glucagon (Glucagen) 1 mg Q15M PRN IM DECREASED GLUCOSE; Start 11/30/18 at 10:00 Glucose (Glutose) 15 gm Q15M PRN BUCCAL DECREASED GLUCOSE; Start 11/30/18 at 10:00 Senna (Senokot) 2 tab BID PO Last administered on 12/02/18 08:07; Admin Dose 2 TAB; Start 12/01/18 at 21:00 Hydromorphone HCl (Dilaudid) 2 mg Q3H PRN PO BREAKTHROUGH PAIN Last administered on 12/02/18at 12:50; Admin Dose 2 MG; Start 12/01/18 at 15:30 Ceftriaxone Sodium 50 ml @ 100 mls/hr Q24H IVPB Last administered on 12/02/18 18:00; Admin Dose 100 MLS/HR; Start 12/02/18 at 15:00 Albumin Human 100 ml @ 100 mls/hr Q8H IV ; Start 12/04/18 at 15:00; Stop 12/05/18 at 07:59 MECCA RENAE MD Dec 02, 2018 18:32
[2018-12-03] VITALS (24 sets, daily range): BP systolic 83–112; BP diastolic 48–68; PULSE 91–110; RESP 18–20
[2018-12-03] MEDS: LACTULOSE 30ML CUP PO SCH ×4 (06:12→17:23)
[2018-12-03] MEDS: LEVOTHYROXINE 88 MCG TAB PO SCH (06:12)
[2018-12-03] MEDS: PANTOPRAZOLE (EC) 40 MG TAB PO SCH (06:12)
--- NOTE | 2018-12-03 06:38 | QN ---
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 Although the WBC count is normal there is bandemia Awaiting cultures on paracentesis Serum lipase ordered SHANIKA MASCORRO MD Dec 03, 2018 06:38
[2018-12-03] MEDS: RIFAXIMIN 550 MG TAB PO SCH ×2 (08:42→19:58)
[2018-12-03] MEDS: HYDROmorphONE 2 MG TAB PO PRN (08:42)
[2018-12-03] MEDS: SENNA TAB PO SCH ×2 (08:42→19:58)
[2018-12-03] MEDS: FOLIC ACID 1 MG TAB PO SCH (08:42)
--- NOTE | 2018-12-03 08:49 | CONS ---
Assessment/Plan Assessment/Plan Assessment/Plan (Daily) 1. ESRD on HD - pt is currently confused, unable to know HD schedule, 2. acute abdominal pain 3. H/o Hypertension 4. H/o DM II 5. H/o Liver cirrhosis Plan: s/p HD today 700 cc removed, afebrile, BP still labile s/p Paracentesis 3.1 L removed on 12/02/18 Continue current meds , IV dilaudid for pain control will follow up Consultation Date/Type/Reason Admit Date/Time Dec 01, 2018 at 14:56 Initial Consult Date 11/30/18 Type of Consult NEPHROLOGY Requesting Provider: SIRI DISLA Date/Time of Note DATE: 12/03/18 TIME: 08:49 Exam/Review of Systems Exam Vitals Vital Signs Date Temp Pulse Resp B/P (MAP) Pulse Ox O2 O2 Flow FiO2 Time Delivery Rate 12/03/18 97.9 105 18 109/64 93 08:00 (79) 12/02/18 2.0 21:47 12/01/18 Nasal 12:30 Cannula Intake and Output 12/02/18 12/02/18 12/03/18 1515:00 23:00 07:00 IntakeIntake Total 75 ml 300 ml BalanceBalance 75 ml 300 ml Exam Exam Constitutional: other (disoriented, confused ) Psych: no complaints Head: normocephalic ENMT: nl external ears & nose Neck: supple, non-tender Respiratory: crackles/rales, diminished breath sounds Cardiovascular: regular rate and rhythm, nl pulses, other (Permacath ) Gastrointestinal: soft, non-tender Results Result Diagram: 12/03/18 0552 12/03/18 0552 Results 24hrs Laboratory Tests Test 12/02/18 09:57 12/02/18 12:17 12/02/18 17:12 12/02/18 21:37 Body Fluid Type PARACENTHESIS Body Fluid Volume 1000.0 Body Fluid Color YELLOW Body Fluid Appearance CLOUDY Body Fluid WBC 7273 Body Fluid RBC (Auto) 2000 Body Fluid 87.1 Polynuclear WBCs (%) Body Fluid 12.9 Mononuclear Cells % Auto Body Fluid Total < 2.0 Protein Bedside Glucose 149 143 158 Test 12/03/18 05:52 12/03/18 08:39 White Blood Count 10.3 Red Blood Count 2.52 L Hemoglobin 8.9 L Hematocrit 25.5 L Mean Corpuscular 101.2 H Volume Mean Corpuscular 35.3 H Hemoglobin Mean Corpuscular 34.9 Hemoglobin Concent Red Cell Distribution 17.4 H Width Platelet Count 52 L Mean Platelet Volume 12.8 H Immature Granulocytes 0.500 H % Neutrophils % 73.0 Lymphocytes % 10.2 L Monocytes % 13.3 H Eosinophils % 2.8 Basophils % 0.2 Nucleated Red Blood 0.0 Cells % Immature Granulocytes 0.050 H # Neutrophils # 7.5 Lymphocytes # 1.1 Monocytes # 1.4 H Eosinophils # 0.3 Basophils # 0.0 Nucleated Red Blood 0.0 Cells # Sodium Level 137 Potassium Level 3.7 Chloride Level 101 Carbon Dioxide Level 24 Anion Gap 12 Blood Urea Nitrogen 29 H Creatinine 6.86 H Est Glomerular 6 L Filtrat Rate mL/min Glucose Level 148 # Calcium Level 8.7 Lipase < 10 L Bedside Glucose 165 Medications Medication Current Medications IV Flush (NS 3 ml) 3 ml PER PROTOCOL IV ; Start 11/30/18 at 08:30 Ondansetron HCl (Zofran Inj) 4 mg Q6H PRN IV NAUSEA/VOMITING; Start 11/30/18 at 08:30 Acetaminophen (Tylenol Tab) 650 mg Q6H PRN PO .PAIN 1-3 OR TEMP; Start 11/30/18 at 08:30 Acetaminophen/ Hydrocodone Bitart ([place] (5/325)) 1 tab Q6H PRN PO .MOD PAIN 4- 6; Start 11/30/18 at 08:30 Docusate Sodium (Colace) 100 mg Q12H PRN PO .CONSTIPATION; Start 11/30/18 at 08:30 Magnesium Hydroxide (Milk Of Mag) 30 ml DAILY PRN PO .CONSTIPATION; Start 11/30/18 at 08:30 Albuterol/ Ipratropium (Duoneb) 3 ml Q4H RESP THERAPY PRN HHN SHORTNESS OF BREATH Last administered on 12/02/18at 16:09; Admin Dose 3 ML; Start 11/30/18 at 08:30 Hydralazine HCl (Apresoline) 10 mg Q6H PRN IV ELEVATED BLOOD PRESSURE; Start 11/30/18 at 08:30 Nitroglycerin (Nitroglycerin (Sl Tab) 0.4 Mg) 1 tab Q5M PRN SL ANGINA; Start 11/30/18 at 08:30 Folic Acid (Folic Acid) 1 mg DAILY PO Last administered on 12/02/18 08:07; Admin Dose 1 MG; Start 11/30/18 at 09:00 Lactulose (Enulose) 20 gm Q6 PO Last administered on 12/03/18 06:12; Admin Dose 20 GM; Start 11/30/18 at 12:00 Levothyroxine Sodium (Synthroid) 88 mcg BEFORE BREAKFAST PO Last administered on 12/03/18 06:12; Admin Dose 88 MCG; Start 12/01/18 at 07:00 Pantoprazole (Protonix Tab) 40 mg DAILY@0600 PO Last administered on 12/03/18 06:12; Admin Dose 40 MG; Start 11/30/18 at 09:00 Rifaximin (Xifaxan) 550 mg BID PO Last administered on 12/02/18 21:39; Admin Dose 550 MG; Start 11/30/18 at 11:00 Miscellaneous Information 1 cap WITH MEALS XX ; Start 11/30/18 at 12:00; Status Hold Heparin Sodium (Porcine) (Heparin (1000 Units/ml)) 4,000 unit AFTER DIALYSIS CATHETER Last administered on 12/01/18 11:53; Admin Dose 3,200 UNIT; Start 11/30/18 at 10:00 Albumin Human 100 ml @ 100 mls/hr WITH DIALYSIS PRN IV SBP <90 DURING DIALYSIS Last administered on 12/01/18 10:58; Admin Dose 100 MLS/HR; Start 11/30/18 at 10:00 Sodium Chloride (NS) -To prime the dialy... DIRECTED FOR HD PRN IV HD; Start 11/30/18 at 10:00 Insulin Aspart (Novolog Insulin Pen) NOVOLOG *MILD* ALGORITHM WITH MEALS BEDTIME SC Last administered on 12/02/18 17:53; Admin Dose 1 UNIT; Start 11/30/18 at 12:00 Miscellaneous Information 1 ea NOTE XX ; Start 11/30/18 at 10:00 Glucose (Glutose) 15 gm Q15M PRN PO DECREASED GLUCOSE; Start 11/30/18 at 10:00 Glucose (Glutose) 22.5 gm Q15M PRN PO DECREASED GLUCOSE; Start 11/30/18 at 10:00 Dextrose (D50w Syringe) 25 ml Q15M PRN IV DECREASED GLUCOSE Last administered on 12/02/18 07:07; Admin Dose 25 ML; Start 11/30/18 at 10:00 Dextrose (D50w Syringe) 50 ml Q15M PRN IV DECREASED GLUCOSE Last administered on 12/01/18 07:58; Admin Dose 50 ML; Start 11/30/18 at 10:00 Glucagon (Glucagen) 1 mg Q15M PRN IM DECREASED GLUCOSE; Start 11/30/18 at 10:00 Glucose (Glutose) 15 gm Q15M PRN BUCCAL DECREASED GLUCOSE; Start 11/30/18 at 10:00 Senna (Senokot) 2 tab BID PO Last administered on 12/02/18at 21:39; Admin Dose 2 TAB; Start 12/01/18 at 21:00 Hydromorphone HCl (Dilaudid) 2 mg Q3H PRN PO BREAKTHROUGH PAIN Last administered on 12/02/18at 12:50; Admin Dose 2 MG; Start 12/01/18 at 15:30 Ceftriaxone Sodium 50 ml @ 100 mls/hr Q24H IVPB Last administered on 12/02/18at 18:00; Admin Dose 100 MLS/HR; Start 12/02/18 at 15:00 Albumin Human 100 ml @ 100 mls/hr Q8H IV ; Start 12/04/18 at 15:00; Stop 12/05/18 at 07:59 MECCA RENAE MD Dec 03, 2018 08:49
[2018-12-03] MEDS: INSULIN ASPART [NOVOLOG] 3 ML PEN SC SCH ×4 (09:40→19:57)
[2018-12-03] MEDS: ALBUMIN HUMAN 25% 100 ML IV PRN (12:15)
[2018-12-03] MEDS: HEPARIN 1000 UNITS/ML 10 ML INJ CATHETER SCH (14:06)
[2018-12-03] MEDS: CEFTRIAXONE 1 GM/50 ML (PMX) 50 ML IVPB SCH (15:31)
--- NOTE | 2018-12-03 16:56 | PN ---
Date/Time of Note Date/Time of Note DATE: 12/03/18 TIME: 16:54 Assessment/Plan VTE Prophylaxis Risk score (from Nsg)>0 risk: 7 SCD applied (from Nsg): Yes Pharmacological prophylaxis: heparin Lines/Catheters IV Catheter Type (from Nrsg): Permacath Assessment/Plan Assessment/Plan A 53-year-old female coming with lethargy and abdominal pain. Prior history of cirrhosis, diabetes, hypothyroidism, end-stage renal disease. Found to have SBP #Abdominal pain #SBP - paracentesis 12/02/18 with >250 PMNs - Ascites culture pending. Cont ceftriaxone q24h and albumin on day 1 and day 3. - CT shows possible splenic infarct with embolization coil. According to [facility] resident this was done in 2012. Unlikely it is contributing to pain. - Cont lactulose. Goal 3-4 bowel movements per day. . - Pain control with PO dilaudid. No morphine in ESRD. #Diabetes - Holding all insulin. #Hypothyroid - Cont levothyroxine. #ESRD - Renal consulted. Last HD 12/03. #Cirrhosis - For HE, continue lactulose and rifaximin. - Thrombocytopenia. DVT: SCDs GI: Protonix Result Diagram: 12/03/18 0552 12/03/18 0552 Subjective 24 Hr Interval Summary Free Text/Dictation No acute overnight events. Patient getting dialysis today. Still very lethargic with tender abdomen. Did not work with physical therapy today. Exam/Review of Systems Exam Vitals Vital Signs Date Temp Pulse Resp B/P (MAP) Pulse Ox O2 O2 Flow FiO2 Time Delivery Rate 12/03/18 97.8 97 19 105/61 94 15:57 (76) 12/03/18 Room Air 14:25 12/03/18 2.0 11:01 Intake and Output 12/02/18 12/02/18 12/03/18 1515:00 23:00 07:00 IntakeIntake Total 75 ml 300 ml BalanceBalance 75 ml 300 ml Exam GENERAL: Frail appearing woman lying in bed, lethargic. HEENT: Pupils equal, round, react to light. Extraocular muscles intact. NECK: Supple, no thyromegaly. LUNGS: Clear to auscultation bilaterally. CARDIOVASCULAR: S1, S2 heard. No rubs or gallops. ABDOMEN: Firm, tender to palpation throughout. Moderately distended. Hypoactive bowel sounds. MUSCULOSKELETAL: No lower extremity edema bilaterally. Results Results 24hrs Laboratory Tests Test 12/02/18 17:12 12/02/18 21:37 12/03/18 05:52 12/03/18 08:39 Bedside Glucose 143 158 165 White Blood Count 10.3 Red Blood Count 2.52 L Hemoglobin 8.9 L Hematocrit 25.5 L Mean Corpuscular Volume 101.2 H Mean Corpuscular 35.3 H Hemoglobin Mean Corpuscular 34.9 Hemoglobin Concent Red Cell Distribution 17.4 H Width Platelet Count 52 L Mean Platelet Volume 12.8 H Immature Granulocytes % 0.500 H Neutrophils % 73.0 Lymphocytes % 10.2 L Monocytes % 13.3 H Eosinophils % 2.8 Basophils % 0.2 Nucleated Red Blood 0.0 Cells % Immature Granulocytes # 0.050 H Neutrophils # 7.5 Lymphocytes # 1.1 Monocytes # 1.4 H Eosinophils # 0.3 Basophils # 0.0 Nucleated Red Blood 0.0 Cells # Sodium Level 137 Potassium Level 3.7 Chloride Level 101 Carbon Dioxide Level 24 Anion Gap 12 Blood Urea Nitrogen 29 H Creatinine 6.86 H Est Glomerular Filtrat 6 L Rate mL/min Glucose Level 148 # Calcium Level 8.7 Lipase < 10 L Test 12/03/18 12:33 Bedside Glucose 125 Medications Medication Current Medications IV Flush (NS 3 ml) 3 ml PER PROTOCOL IV ; Start 11/30/18 at 08:30 Ondansetron HCl (Zofran Inj) 4 mg Q6H PRN IV NAUSEA/VOMITING; Start 11/30/18 at 08:30 Acetaminophen (Tylenol Tab) 650 mg Q6H PRN PO .PAIN 1-3 OR TEMP; Start 11/30/18 at 08:30 Acetaminophen/ Hydrocodone Bitart ([place] (5/325)) 1 tab Q6H PRN PO .MOD PAIN 4- 6; Start 11/30/18 at 08:30 Docusate Sodium (Colace) 100 mg Q12H PRN PO .CONSTIPATION; Start 11/30/18 at 08:30 Magnesium Hydroxide (Milk Of Mag) 30 ml DAILY PRN PO .CONSTIPATION; Start 11/30/18 at 08:30 Albuterol/ Ipratropium (Duoneb) 3 ml Q4H RESP THERAPY PRN HHN SHORTNESS OF BREATH Last administered on 3/5/19at 16:09; Admin Dose 3 ML; Start 11/30/18 at 08:30 Hydralazine HCl (Apresoline) 10 mg Q6H PRN IV ELEVATED BLOOD PRESSURE; Start 11/30/18 at 08:30 Nitroglycerin (Nitroglycerin (Sl Tab) 0.4 Mg) 1 tab Q5M PRN SL ANGINA; Start 11/30/18 at 08:30 Folic Acid (Folic Acid) 1 mg DAILY PO Last administered on 12/03/18 08:42; Admin Dose 1 MG; Start 11/30/18 at 09:00 Lactulose (Enulose) 20 gm Q6 PO Last administered on 12/03/18 06:12; Admin Dose 20 GM; Start 11/30/18 at 12:00 Levothyroxine Sodium (Synthroid) 88 mcg BEFORE BREAKFAST PO Last administered on 12/03/18 06:12; Admin Dose 88 MCG; Start 12/01/18 at 07:00 Pantoprazole (Protonix Tab) 40 mg DAILY@0600 PO Last administered on 12/03/18 06:12; Admin Dose 40 MG; Start 11/30/18 at 09:00 Rifaximin (Xifaxan) 550 mg BID PO Last administered on 12/03/18 08:42; Admin Dose 550 MG; Start 11/30/18 at 11:00 Miscellaneous Information 1 cap WITH MEALS XX ; Start 11/30/18 at 12:00; Status Hold Heparin Sodium (Porcine) (Heparin (1000 Units/ml)) 4,000 unit AFTER DIALYSIS CATHETER Last administered on 12/03/18 14:06; Admin Dose 4,000 UNIT; Start 11/30/18 at 10:00 Albumin Human 100 ml @ 100 mls/hr WITH DIALYSIS PRN IV SBP <90 DURING DIALYSIS Last administered on 12/03/18 12:15; Admin Dose 100 MLS/HR; Start 11/30/18 at 10:00 Sodium Chloride (NS) -To prime the dialy... DIRECTED FOR HD PRN IV HD; Start 11/30/18 at 10:00 Insulin Aspart (Novolog Insulin Pen) NOVOLOG *MILD* ALGORITHM WITH MEALS BEDTIME SC Last administered on 12/03/18 09:40; Admin Dose 1 UNIT; Start 11/30/18 at 12:00 Miscellaneous Information 1 ea NOTE XX ; Start 11/30/18 at 10:00 Glucose (Glutose) 15 gm Q15M PRN PO DECREASED GLUCOSE; Start 11/30/18 at 10:00 Glucose (Glutose) 22.5 gm Q15M PRN PO DECREASED GLUCOSE; Start 11/30/18 at 10:00 Dextrose (D50w Syringe) 25 ml Q15M PRN IV DECREASED GLUCOSE Last administered on 12/02/18at 07:07; Admin Dose 25 ML; Start 11/30/18 at 10:00 Dextrose (D50w Syringe) 50 ml Q15M PRN IV DECREASED GLUCOSE Last administered on 12/01/18at 07:58; Admin Dose 50 ML; Start 11/30/18 at 10:00 Glucagon (Glucagen) 1 mg Q15M PRN IM DECREASED GLUCOSE; Start 11/30/18 at 10:00 Glucose (Glutose) 15 gm Q15M PRN BUCCAL DECREASED GLUCOSE; Start 11/30/18 at 10:00 Senna (Senokot) 2 tab BID PO Last administered on 12/03/18at 08:42; Admin Dose 2 TAB; Start 12/01/18 at 21:00 Hydromorphone HCl (Dilaudid) 2 mg Q3H PRN PO BREAKTHROUGH PAIN Last administered on 12/03/18at 08:42; Admin Dose 2 MG; Start 12/01/18 at 15:30 Ceftriaxone Sodium 50 ml @ 100 mls/hr Q24H IVPB Last administered on 12/03/18at 15:31; Admin Dose 100 MLS/HR; Start 12/02/18 at 15:00 Albumin Human 100 ml @ 100 mls/hr Q8H IV ; Start 12/04/18 at 15:00; Stop 12/05/18 at 07:59 ALLISON RAMIREZ MD Dec 03, 2018 16:56
[2018-12-04] VITALS (12 sets, daily range): BP systolic 104–114; BP diastolic 59–70; PULSE 92–102; RESP 17–19
[2018-12-04] MEDS: LACTULOSE 30ML CUP PO SCH ×4 (06:43→16:49)
[2018-12-04] MEDS: PANTOPRAZOLE (EC) 40 MG TAB PO SCH (06:43)
[2018-12-04] MEDS: LEVOTHYROXINE 88 MCG TAB PO SCH (06:44)
--- NOTE | 2018-12-04 07:28 | QN ---
Documentation Comment No abdominal pain today Abdomen is nontender Bandemia resolved Plan: Continue medical management SHANIKA MASCORRO MD Dec 04, 2018 07:28
[2018-12-04] MEDS: SENNA TAB PO SCH ×2 (08:01→19:55)
[2018-12-04] MEDS: RIFAXIMIN 550 MG TAB PO SCH ×2 (08:01→19:55)
[2018-12-04] MEDS: FOLIC ACID 1 MG TAB PO SCH (08:01)
[2018-12-04] MEDS: INSULIN ASPART [NOVOLOG] 3 ML PEN SC SCH ×4 (08:08→20:13)
--- NOTE | 2018-12-04 11:56 | CONS ---
Assessment/Plan Assessment/Plan Assessment/Plan (Daily) 1. ESRD on HD - pt is currently confused, unable to know HD schedule, 2. acute abdominal pain 3. H/o Hypertension 4. H/o DM II 5. H/o Liver cirrhosis Plan: HD ordered for tomorrow ith ALbumina nd Midodrine support s/p Paracentesis 3.1 L removed on 12/02/18 Continue current meds , IV dilaudid for pain control will follow up Consultation Date/Type/Reason Admit Date/Time Dec 01, 2018 at 14:56 Initial Consult Date 11/30/18 Type of Consult NEPHROLOGY Requesting Provider: SIRI DISLA Date/Time of Note DATE: 12/04/18 TIME: 11:56 Exam/Review of Systems Exam Vitals Vital Signs Date Temp Pulse Resp B/P (MAP) Pulse Ox O2 O2 Flow FiO2 Time Delivery Rate 12/04/18 98.2 100 17 112/64 92 11:20 (80) 12/04/18 Room Air 04:12 12/03/18 2.0 11:01 Intake and Output 12/03/18 12/03/18 12/04/18 1515:00 23:00 07:00 IntakeIntake Total 250 ml 300 ml OutputOutput Total 1300 ml BalanceBalance -1300 ml 250 ml 300 ml Results Result Diagram: 12/04/18 0544 12/04/18 0544 Results 24hrs Laboratory Tests Test 12/03/18 12:33 12/03/18 17:22 12/03/18 19:57 12/04/18 05:44 Bedside Glucose 125 110 124 White Blood Count 8.1 # Red Blood Count 2.47 L Hemoglobin 8.6 L Hematocrit 24.8 L Mean Corpuscular Volume 100.4 Mean Corpuscular 34.8 H Hemoglobin Mean Corpuscular 34.7 Hemoglobin Concent Red Cell Distribution 17.6 H Width Platelet Count 39 #L Mean Platelet Volume 12.5 H Immature Granulocytes % 0.400 Neutrophils % 60.3 Lymphocytes % 15.9 Monocytes % 18.0 H Eosinophils % 5.0 Basophils % 0.4 Nucleated Red Blood 0.0 Cells % Immature Granulocytes # 0.030 Neutrophils # 4.9 Lymphocytes # 1.3 Monocytes # 1.5 H Eosinophils # 0.4 Basophils # 0.0 Nucleated Red Blood 0.0 Cells # Sodium Level 139 Potassium Level 3.8 Chloride Level 106 Carbon Dioxide Level 24 Anion Gap 9 Blood Urea Nitrogen 20 Creatinine 4.24 #H Est Glomerular Filtrat 11 L Rate mL/min Glucose Level 147 Calcium Level 8.9 Test 12/04/18 08:02 Bedside Glucose 167 Medications Medication Current Medications IV Flush (NS 3 ml) 3 ml PER PROTOCOL IV ; Start 11/30/18 at 08:30 Ondansetron HCl (Zofran Inj) 4 mg Q6H PRN IV NAUSEA/VOMITING; Start 11/30/18 at 08:30 Acetaminophen (Tylenol Tab) 650 mg Q6H PRN PO .PAIN 1-3 OR TEMP; Start 11/30/18 at 08:30 Acetaminophen/ Hydrocodone Bitart ([place] (5/325)) 1 tab Q6H PRN PO .MOD PAIN 4- 6; Start 11/30/18 at 08:30 Docusate Sodium (Colace) 100 mg Q12H PRN PO .CONSTIPATION; Start 11/30/18 at 08:30 Magnesium Hydroxide (Milk Of Mag) 30 ml DAILY PRN PO .CONSTIPATION; Start 11/30/18 at 08:30 Albuterol/ Ipratropium (Duoneb) 3 ml Q4H RESP THERAPY PRN HHN SHORTNESS OF BREATH Last administered on 12/02/18at 16:09; Admin Dose 3 ML; Start 11/30/18 at 08:30 Hydralazine HCl (Apresoline) 10 mg Q6H PRN IV ELEVATED BLOOD PRESSURE; Start 11/30/18 at 08:30 Nitroglycerin (Nitroglycerin (Sl Tab) 0.4 Mg) 1 tab Q5M PRN SL ANGINA; Start 11/30/18 at 08:30 Folic Acid (Folic Acid) 1 mg DAILY PO Last administered on 12/04/18at 08:01; Admin Dose 1 MG; Start 11/30/18 at 09:00 Lactulose (Enulose) 20 gm Q6 PO Last administered on 12/04/18at 06:43; Admin Dose 20 GM; Start 11/30/18 at 12:00 Levothyroxine Sodium (Synthroid) 88 mcg BEFORE BREAKFAST PO Last administered on 12/03/18at 06:12; Admin Dose 88 MCG; Start 12/01/18 at 07:00 Pantoprazole (Protonix Tab) 40 mg DAILY@0600 PO Last administered on 12/04/18at 06:43; Admin Dose 40 MG; Start 11/30/18 at 09:00 Rifaximin (Xifaxan) 550 mg BID PO Last administered on 12/04/18at 08:01; Admin Dose 550 MG; Start 11/30/18 at 11:00 Miscellaneous Information 1 cap WITH MEALS XX ; Start 11/30/18 at 12:00; Status Hold Heparin Sodium (Porcine) (Heparin (1000 Units/ml)) 4,000 unit AFTER DIALYSIS CATHETER Last administered on 12/03/18at 14:06; Admin Dose 4,000 UNIT; Start 11/30/18 at 10:00 Albumin Human 100 ml @ 100 mls/hr WITH DIALYSIS PRN IV SBP <90 DURING DIALYSIS Last administered on 12/03/18at 12:15; Admin Dose 100 MLS/HR; Start 11/30/18 at 10:00 Sodium Chloride (NS) -To prime the dialy... DIRECTED FOR HD PRN IV HD; Start 11/30/18 at 10:00 Insulin Aspart (Novolog Insulin Pen) NOVOLOG *MILD* ALGORITHM WITH MEALS BEDTIME SC Last administered on 12/04/18at 08:08; Admin Dose 1 UNIT; Start 11/30/18 at 12:00 Miscellaneous Information 1 ea NOTE XX ; Start 11/30/18 at 10:00 Glucose (Glutose) 15 gm Q15M PRN PO DECREASED GLUCOSE; Start 11/30/18 at 10:00 Glucose (Glutose) 22.5 gm Q15M PRN PO DECREASED GLUCOSE; Start 11/30/18 at 10:00 Dextrose (D50w Syringe) 25 ml Q15M PRN IV DECREASED GLUCOSE Last administered on 12/02/18at 07:07; Admin Dose 25 ML; Start 11/30/18 at 10:00 Dextrose (D50w Syringe) 50 ml Q15M PRN IV DECREASED GLUCOSE Last administered on 12/01/18at 07:58; Admin Dose 50 ML; Start 11/30/18 at 10:00 Glucagon (Glucagen) 1 mg Q15M PRN IM DECREASED GLUCOSE; Start 11/30/18 at 10:00 Glucose (Glutose) 15 gm Q15M PRN BUCCAL DECREASED GLUCOSE; Start 11/30/18 at 10:00 Senna (Senokot) 2 tab BID PO Last administered on 12/04/18 08:01; Admin Dose 2 TAB; Start 12/01/18 at 21:00 Hydromorphone HCl (Dilaudid) 2 mg Q3H PRN PO BREAKTHROUGH PAIN Last administered on 12/03/18 08:42; Admin Dose 2 MG; Start 12/01/18 at 15:30 Ceftriaxone Sodium 50 ml @ 100 mls/hr Q24H IVPB Last administered on 12/03/18 15:31; Admin Dose 100 MLS/HR; Start 12/02/18 at 15:00 Albumin Human 100 ml @ 100 mls/hr Q8H IV ; Start 12/04/18 at 15:00; Stop 12/05/18 at 07:59 MECCA RENAE MD Dec 04, 2018 11:56
[2018-12-04] MEDS: ALBUMIN HUMAN 25% 100 ML IV SCH ×2 (14:33→19:56)
[2018-12-04] MEDS: CEFTRIAXONE 1 GM/50 ML (PMX) 50 ML IVPB SCH (14:33)
--- NOTE | 2018-12-04 15:38 | PN ---
Date/Time of Note Date/Time of Note DATE: 12/04/18 TIME: 15:36 Assessment/Plan VTE Prophylaxis Risk score (from Nsg)>0 risk: 1 SCD applied (from Nsg): Yes Pharmacological prophylaxis: NA/contraindicated Pharm contraindication: low risk/ambulating Lines/Catheters IV Catheter Type (from Nrsg): permacath Urinary Cath still in place: No Assessment/Plan Assessment/Plan A 53-year-old female coming with lethargy and abdominal pain. Prior history of cirrhosis, diabetes, hypothyroidism, end-stage renal disease. Found to have SBP #Abdominal pain #SBP - paracentesis 12/02/18 with >250 PMNs - Ascites culture pending. Cont ceftriaxone q24h and albumin on day 1 and day 3. - CT shows possible splenic infarct with embolization coil. According to [facility] resident this was done in 2012. Unlikely it is contributing to pain. - Cont lactulose. Goal 3-4 bowel movements per day. . - Pain control with PO dilaudid. No morphine in ESRD. #Diabetes - Holding all insulin. #Hypothyroid - Cont levothyroxine. #ESRD - Renal consulted. Last HD 12/03. #Cirrhosis - For HE, continue lactulose and rifaximin. - Thrombocytopenia. DVT: SCDs GI: Protonix Result Diagram: 12/04/18 0544 12/04/18 0544 Subjective 24 Hr Interval Summary Free Text/Dictation Slightly improved today. No longer requiring dilaudid for abdominal pain. Slightly more awake and responsive. Called daughter to update her. Exam/Review of Systems Exam Vitals Vital Signs Date Temp Pulse Resp B/P (MAP) Pulse Ox O2 O2 Flow FiO2 Time Delivery Rate 12/04/18 98 12:00 12/04/18 98.2 17 112/64 92 11:20 (80) 12/04/18 Room Air 04:12 12/03/18 2.0 11:01 Intake and Output 12/03/18 12/03/18 12/04/18 1515:00 23:00 07:00 IntakeIntake Total 250 ml 300 ml OutputOutput Total 1300 ml BalanceBalance -1300 ml 250 ml 300 ml Exam GENERAL: Frail appearing woman lying in bed, lethargic. HEENT: Pupils equal, round, react to light. Extraocular muscles intact. NECK: Supple, no thyromegaly. LUNGS: Clear to auscultation bilaterally. CARDIOVASCULAR: S1, S2 heard. No rubs or gallops. ABDOMEN: Firm, tender to palpation throughout. Moderately distended. Hypoactive bowel sounds. MUSCULOSKELETAL: No lower extremity edema bilaterally. Results Results 24hrs Laboratory Tests Test 12/03/18 17:22 12/03/18 19:57 12/04/18 05:44 12/04/18 08:02 Bedside Glucose 110 124 167 White Blood Count 8.1 # Red Blood Count 2.47 L Hemoglobin 8.6 L Hematocrit 24.8 L Mean Corpuscular Volume 100.4 Mean Corpuscular 34.8 H Hemoglobin Mean Corpuscular 34.7 Hemoglobin Concent Red Cell Distribution 17.6 H Width Platelet Count 39 #L Mean Platelet Volume 12.5 H Immature Granulocytes % 0.400 Neutrophils % 60.3 Lymphocytes % 15.9 Monocytes % 18.0 H Eosinophils % 5.0 Basophils % 0.4 Nucleated Red Blood 0.0 Cells % Immature Granulocytes # 0.030 Neutrophils # 4.9 Lymphocytes # 1.3 Monocytes # 1.5 H Eosinophils # 0.4 Basophils # 0.0 Nucleated Red Blood 0.0 Cells # Sodium Level 139 Potassium Level 3.8 Chloride Level 106 Carbon Dioxide Level 24 Anion Gap 9 Blood Urea Nitrogen 20 Creatinine 4.24 #H Est Glomerular Filtrat 11 L Rate mL/min Glucose Level 147 Calcium Level 8.9 Test 12/04/18 12:00 Bedside Glucose 199 Medications Medication Current Medications IV Flush (NS 3 ml) 3 ml PER PROTOCOL IV ; Start 11/30/18 at 08:30 Ondansetron HCl (Zofran Inj) 4 mg Q6H PRN IV NAUSEA/VOMITING; Start 11/30/18 at 08:30 Acetaminophen (Tylenol Tab) 650 mg Q6H PRN PO .PAIN 1-3 OR TEMP; Start 11/30/18 at 08:30 Acetaminophen/ Hydrocodone Bitart ([place] (5/325)) 1 tab Q6H PRN PO .MOD PAIN 4- 6; Start 11/30/18 at 08:30 Docusate Sodium (Colace) 100 mg Q12H PRN PO .CONSTIPATION; Start 11/30/18 at 08:30 Magnesium Hydroxide (Milk Of Mag) 30 ml DAILY PRN PO .CONSTIPATION; Start 11/30/18 at 08:30 Albuterol/ Ipratropium (Duoneb) 3 ml Q4H RESP THERAPY PRN HHN SHORTNESS OF BREATH Last administered on 12/02/18 16:09; Admin Dose 3 ML; Start 11/30/18 at 08:30 Hydralazine HCl (Apresoline) 10 mg Q6H PRN IV ELEVATED BLOOD PRESSURE; Start 11/30/18 at 08:30 Nitroglycerin (Nitroglycerin (Sl Tab) 0.4 Mg) 1 tab Q5M PRN SL ANGINA; Start 11/30/18 at 08:30 Folic Acid (Folic Acid) 1 mg DAILY PO Last administered on 12/04/18 08:01; Admin Dose 1 MG; Start 11/30/18 at 09:00 Lactulose (Enulose) 20 gm Q6 PO Last administered on 12/04/18at 11:59; Admin Dose 20 GM; Start 11/30/18 at 12:00 Levothyroxine Sodium (Synthroid) 88 mcg BEFORE BREAKFAST PO Last administered on 12/03/18 06:12; Admin Dose 88 MCG; Start 12/01/18 at 07:00 Pantoprazole (Protonix Tab) 40 mg DAILY@0600 PO Last administered on 12/04/18 06:43; Admin Dose 40 MG; Start 11/30/18 at 09:00 Rifaximin (Xifaxan) 550 mg BID PO Last administered on 12/04/18at 08:01; Admin Dose 550 MG; Start 11/30/18 at 11:00 Miscellaneous Information 1 cap WITH MEALS XX ; Start 11/30/18 at 12:00; Status Hold Heparin Sodium (Porcine) (Heparin (1000 Units/ml)) 4,000 unit AFTER DIALYSIS CATHETER Last administered on 12/03/18at 14:06; Admin Dose 4,000 UNIT; Start 11/30/18 at 10:00 Albumin Human 100 ml @ 100 mls/hr WITH DIALYSIS PRN IV SBP <90 DURING DIALYSIS Last administered on 12/03/18at 12:15; Admin Dose 100 MLS/HR; Start 11/30/18 at 10:00 Sodium Chloride (NS) -To prime the dialy... DIRECTED FOR HD PRN IV HD; Start 11/30/18 at 10:00 Insulin Aspart (Novolog Insulin Pen) NOVOLOG *MILD* ALGORITHM WITH MEALS BEDTIME SC Last administered on 12/04/18at 12:04; Admin Dose 2 UNIT; Start 11/30/18 at 12:00 Miscellaneous Information 1 ea NOTE XX ; Start 11/30/18 at 10:00 Glucose (Glutose) 15 gm Q15M PRN PO DECREASED GLUCOSE; Start 11/30/18 at 10:00 Glucose (Glutose) 22.5 gm Q15M PRN PO DECREASED GLUCOSE; Start 11/30/18 at 10:00 Dextrose (D50w Syringe) 25 ml Q15M PRN IV DECREASED GLUCOSE Last administered on 12/02/18at 07:07; Admin Dose 25 ML; Start 11/30/18 at 10:00 Dextrose (D50w Syringe) 50 ml Q15M PRN IV DECREASED GLUCOSE Last administered on 12/01/18at 07:58; Admin Dose 50 ML; Start 11/30/18 at 10:00 Glucagon (Glucagen) 1 mg Q15M PRN IM DECREASED GLUCOSE; Start 11/30/18 at 10:00 Glucose (Glutose) 15 gm Q15M PRN BUCCAL DECREASED GLUCOSE; Start 11/30/18 at 10:00 Senna (Senokot) 2 tab BID PO Last administered on 12/04/18 08:01; Admin Dose 2 TAB; Start 12/01/18 at 21:00 Hydromorphone HCl (Dilaudid) 2 mg Q3H PRN PO BREAKTHROUGH PAIN Last administered on 12/03/18 08:42; Admin Dose 2 MG; Start 12/01/18 at 15:30 Ceftriaxone Sodium 50 ml @ 100 mls/hr Q24H IVPB Last administered on 12/04/18 14:33; Admin Dose 100 MLS/HR; Start 12/02/18 at 15:00 Albumin Human 100 ml @ 100 mls/hr Q8H IV Last administered on 12/04/18 14:33; Admin Dose 100 MLS/HR; Start 12/04/18 at 15:00; Stop 12/05/18 at 07:59 ALLISON RAMIREZ MD Dec 04, 2018 15:38
[2018-12-05] VITALS (25 sets, daily range): BP systolic 82–116; BP diastolic 53–65; PULSE 74–98; RESP 17–19
[2018-12-05] MEDS: LACTULOSE 30ML CUP PO SCH ×4 (05:45→16:58)
[2018-12-05] MEDS: ALBUMIN HUMAN 25% 100 ML IV SCH (05:46)
[2018-12-05] MEDS: LEVOTHYROXINE 88 MCG TAB PO SCH (05:46)
[2018-12-05] MEDS: PANTOPRAZOLE (EC) 40 MG TAB PO SCH (05:46)
--- NOTE | 2018-12-05 07:23 | CONS ---
Assessment/Plan Assessment/Plan Assessment/Plan (Daily) 1. ESRD on HD - 2. acute abdominal pain 3. H/o Hypertension 4. H/o DM II 5. H/o Liver cirrhosis Plan: s/p HD today 1000 cc removed, afebrile, BP still labile s/p Paracentesis 3.1 L removed on 12/02/18 Continue current meds , IV dilaudid for pain control will follow up Consultation Date/Type/Reason Admit Date/Time Dec 01, 2018 at 14:56 Initial Consult Date 11/30/18 Type of Consult NEPHROLOGY Requesting Provider: SIRI DISLA Date/Time of Note DATE: 12/05/18 TIME: 07:23 Exam/Review of Systems Exam Vitals Vital Signs Date Temp Pulse Resp B/P (MAP) Pulse Ox O2 O2 Flow FiO2 Time Delivery Rate 12/05/18 98.4 84 19 116/64 96 04:15 (81) 12/04/18 Room Air 04:12 12/03/18 2.0 11:01 Intake and Output 12/04/18 12/04/18 12/05/18 1515:00 23:00 07:00 IntakeIntake Total 500 ml BalanceBalance 500 ml Exam Constitutional: other (disoriented, confused ) Psych: no complaints Head: normocephalic ENMT: nl external ears & nose Neck: supple, non-tender Respiratory: crackles/rales, diminished breath sounds Cardiovascular: regular rate and rhythm, nl pulses, other (Permacath ) Gastrointestinal: soft, non-tender Results Result Diagram: 12/05/18 0548 12/05/18 0548 Results 24hrs Laboratory Tests Test 12/04/18 08:02 12/04/18 12:00 12/04/18 16:49 12/04/18 19:54 Bedside Glucose 167 199 260 H 185 Test 12/05/18 05:48 White Blood Count 7.0 Red Blood Count 2.32 L Hemoglobin 8.0 L Hematocrit 22.9 L Mean Corpuscular Volume 98.7 Mean Corpuscular 34.5 H Hemoglobin Mean Corpuscular 34.9 Hemoglobin Concent Red Cell Distribution 17.2 H Width Platelet Count 28 #*L Mean Platelet Volume 13.6 H Immature Granulocytes % 0.400 Neutrophils % Lymphocytes % Monocytes % Eosinophils % Basophils % Nucleated Red Blood 0.0 Cells % Immature Granulocytes # 0.030 Neutrophils # Lymphocytes # Monocytes # Eosinophils # Basophils # Nucleated Red Blood Cells # Sodium Level 140 Potassium Level 3.7 Chloride Level 105 Carbon Dioxide Level 23 Anion Gap 12 Blood Urea Nitrogen 31 #H Creatinine 5.46 H Est Glomerular Filtrat 8 L Rate mL/min Glucose Level 158 Calcium Level 9.1 Medications Medication Current Medications IV Flush (NS 3 ml) 3 ml PER PROTOCOL IV ; Start 11/30/18 at 08:30 Ondansetron HCl (Zofran Inj) 4 mg Q6H PRN IV NAUSEA/VOMITING; Start 11/30/18 at 08:30 Acetaminophen (Tylenol Tab) 650 mg Q6H PRN PO .PAIN 1-3 OR TEMP; Start 11/30/18 at 08:30 Acetaminophen/ Hydrocodone Bitart ([place] (5/325)) 1 tab Q6H PRN PO .MOD PAIN 4- 6; Start 11/30/18 at 08:30 Docusate Sodium (Colace) 100 mg Q12H PRN PO .CONSTIPATION; Start 11/30/18 at 08:30 Magnesium Hydroxide (Milk Of Mag) 30 ml DAILY PRN PO .CONSTIPATION; Start 11/30 at 08:30 Albuterol/ Ipratropium (Duoneb) 3 ml Q4H RESP THERAPY PRN HHN SHORTNESS OF BREATH Last administered on 12/02/18at 16:09; Admin Dose 3 ML; Start 11/30/18 at 08:30 Hydralazine HCl (Apresoline) 10 mg Q6H PRN IV ELEVATED BLOOD PRESSURE; Start 11/30/18 at 08:30 Nitroglycerin (Nitroglycerin (Sl Tab) 0.4 Mg) 1 tab Q5M PRN SL ANGINA; Start 11/30/18 at 08:30 Folic Acid (Folic Acid) 1 mg DAILY PO Last administered on 12/04/18at 08:01; Admin Dose 1 MG; Start 11/30/18 at 09:00 Lactulose (Enulose) 20 gm Q6 PO Last administered on 12/05/18at 05:45; Admin Dose 20 GM; Start 11/30/18 at 12:00 Levothyroxine Sodium (Synthroid) 88 mcg BEFORE BREAKFAST PO Last administered on 12/03/18at 06:12; Admin Dose 88 MCG; Start 12/01/18 at 07:00 Pantoprazole (Protonix Tab) 40 mg DAILY@0600 PO Last administered on 12/05/18at 05:46; Admin Dose 40 MG; Start 11/30/18 at 09:00 Rifaximin (Xifaxan) 550 mg BID PO Last administered on 12/04/18at 19:55; Admin Dose 550 MG; Start 11/30/18 at 11:00 Miscellaneous Information 1 cap WITH MEALS XX ; Start 11/30/18 at 12:00; Status Hold Heparin Sodium (Porcine) (Heparin (1000 Units/ml)) 4,000 unit AFTER DIALYSIS CATHETER Last administered on 12/03/18at 14:06; Admin Dose 4,000 UNIT; Start 11/30/18 at 10:00 Albumin Human 100 ml @ 100 mls/hr WITH DIALYSIS PRN IV SBP <90 DURING DIALYSIS Last administered on 12/03/18at 12:15; Admin Dose 100 MLS/HR; Start 11/30/18 at 10:00 Sodium Chloride (NS) -To prime the dialy... DIRECTED FOR HD PRN IV HD; Start 11/30/18 at 10:00 Insulin Aspart (Novolog Insulin Pen) NOVOLOG *MILD* ALGORITHM WITH MEALS BEDTIME SC Last administered on 12/04/18at 20:13; Admin Dose 1 UNIT; Start 11/30/18 at 12:00 Miscellaneous Information 1 ea NOTE XX ; Start 11/30/18 at 10:00 Glucose (Glutose) 15 gm Q15M PRN PO DECREASED GLUCOSE; Start 11/30/18 at 10:00 Glucose (Glutose) 22.5 gm Q15M PRN PO DECREASED GLUCOSE; Start 11/30/18 at 10:00 Dextrose (D50w Syringe) 25 ml Q15M PRN IV DECREASED GLUCOSE Last administered on 12/02/18at 07:07; Admin Dose 25 ML; Start 11/30/18 at 10:00 Dextrose (D50w Syringe) 50 ml Q15M PRN IV DECREASED GLUCOSE Last administered on 12/01/18at 07:58; Admin Dose 50 ML; Start 11/30/18 at 10:00 Glucagon (Glucagen) 1 mg Q15M PRN IM DECREASED GLUCOSE; Start 11/30/18 at 10:00 Glucose (Glutose) 15 gm Q15M PRN BUCCAL DECREASED GLUCOSE; Start 11/30/18 at 10:00 Senna (Senokot) 2 tab BID PO Last administered on 12/04/18 19:55; Admin Dose 2 TAB; Start 12/01/18 at 21:00 Hydromorphone HCl (Dilaudid) 2 mg Q3H PRN PO BREAKTHROUGH PAIN Last adm inistered on 12/03/18at 08:42; Admin Dose 2 MG; Start 12/01/18 at 15:30 Ceftriaxone Sodium 50 ml @ 100 mls/hr Q24H IVPB Last administered on 12/04/18at 14:33; Admin Dose 100 MLS/HR; Start 12/02/18 at 15:00 Albumin Human 100 ml @ 100 mls/hr Q8H IV Last administered on 12/05/18at 05:46; Admin Dose 100 MLS/HR; Start 12/04/18 at 15:00; Stop 12/05/18 at 07:59 MECCA RENAE MD Dec 05, 2018 07:23
[2018-12-05] MEDS: FOLIC ACID 1 MG TAB PO SCH (07:47)
[2018-12-05] MEDS: SENNA TAB PO SCH ×2 (07:47→20:28)
[2018-12-05] MEDS: RIFAXIMIN 550 MG TAB PO SCH ×2 (07:47→20:28)
[2018-12-05] MEDS: INSULIN ASPART [NOVOLOG] 3 ML PEN SC SCH ×4 (07:57→20:42)
[2018-12-05] MEDS: ALBUMIN HUMAN 25% 100 ML IV PRN (09:31)
--- NOTE | 2018-12-05 09:31 | QN ---
Documentation Comment No further abdominal pain Abdominal examination benign Leukocytosis resolved As there are no further surgical recommendations, will sign off and see again prn your request SHANIKA MASCORRO MD Dec 05, 2018 09:31
[2018-12-05] MEDS: HEPARIN 1000 UNITS/ML 10 ML INJ CATHETER SCH (12:29)
[2018-12-05] MEDS: CEFTRIAXONE 1 GM/50 ML (PMX) 50 ML IVPB SCH (15:31)
--- NOTE | 2018-12-05 17:02 | PN ---
Date/Time of Note Date/Time of Note DATE: 12/05/18 TIME: 17:00 Assessment/Plan VTE Prophylaxis Risk score (from Nsg)>0 risk: 3 SCD applied (from Nsg): Yes Pharmacological prophylaxis: NA/contraindicated Pharm contraindication: thrombocytopenia Lines/Catheters IV Catheter Type (from Nrsg): PERMACATH Urinary Cath still in place: No Assessment/Plan Assessment/Plan A 53-year-old female coming with lethargy and abdominal pain. Prior history of cirrhosis, diabetes, hypothyroidism, end-stage renal disease. Found to have SBP #Abdominal pain #SBP - paracentesis 12/02/18 with >250 PMNs - Ascites culture growing fluoroquinolone-resistant E Coli. Cont ceftriaxone q24h (12/02-12/06) and albumin on day 1 and day 3. - CT shows possible splenic infarct with embolization coil. According to [facility] resident this was done in 2012. Unlikely it is contributing to pain. - Cont lactulose. Goal 3-4 bowel movements per day. . - Pain control with PO dilaudid. No morphine in ESRD. #Diabetes - Holding all insulin. #Hypothyroid - Cont levothyroxine. #ESRD - Renal consulted. Last HD 12/03. #Cirrhosis - For HE, continue lactulose and rifaximin. - Thrombocytopenia. DVT: SCDs GI: Protonix Result Diagram: 12/05/18 0548 12/05/1848 Subjective 24 Hr Interval Summary Free Text/Dictation No acute overnight events. Patient getting dialysis today Continues to report moderate abdominal pain. Appears slightly more awake and alert today. Exam/Review of Systems Exam Vitals Vital Signs Date Temp Pulse Resp B/P (MAP) Pulse Ox O2 O2 Flow FiO2 Time Delivery Rate 12/05/18 98.1 85 18 106/60 96 15:15 (75) 12/05/18 Room Air 12:21 12/03/18 2.0 11:01 Intake and Output 12/04/18 12/04/18 12/05/18 1414:59 22:59 06:59 IntakeIntake Total 500 ml BalanceBalance 500 ml Exam GENERAL: Frail appearing woman lying in bed, lethargic. HEENT: Pupils equal, round, react to light. Extraocular muscles intact. NECK: Supple, no thyromegaly. LUNGS: Clear to auscultation bilaterally. CARDIOVASCULAR: S1, S2 heard. No rubs or gallops. ABDOMEN: Soft, tender to palpation throughout. Moderately distended. Hypoactive bowel sounds. MUSCULOSKELETAL: No lower extremity edema bilaterally. Results Results 24hrs Laboratory Tests Test 12/04/18 19:54 12/05/18 05:48 12/05/18 07:29 12/05/18 11:43 Bedside Glucose 185 245 H 96 White Blood Count 7.0 Red Blood Count 2.32 L Hemoglobin 8.0 L Hematocrit 22.9 L Mean Corpuscular 98.7 Volume Mean Corpuscular 34.5 H Hemoglobin Mean Corpuscular 34.9 Hemoglobin Concent Red Cell Distribution 17.2 H Width Platelet Count 28 #*L Mean Platelet Volume 13.6 H Immature Granulocytes 0.400 % Neutrophils % Segmented Neutrophils 59 % (Manual) Band Neutrophils % 4 (Manual) Lymphocytes % Lymphocytes % 18 (Manual) Reactive Lymphocytes 3 H % (Manual) Monocytes % Monocytes % (Manual) 7 Eosinophils % Eosinophils % 8 H (Manual) Basophils % Basophils % (Manual) 1 Nucleated Red Blood 0.0 Cells % Immature Granulocytes 0.030 # Neutrophils # Neutrophils # 4.1 (Manual) Band Neutrophils # 0.2 Lymphocytes (Manual) 1.2 Lymphocytes # Reactive Lymphocytes 0.2 H # Monocytes # Monocytes # (Manual) 0.4 Eosinophils # Basophils # Basophils # (Manual) 0.0 Nucleated Red Blood Cells # Platelet Estimate SIG DECREASED Platelet Morphology @See below Comment Poikilocytosis 2+ Anisocytosis 3+ Macrocytosis 3+ Target Cells 1+ Ovalocytes 1+ Sodium Level 140 Potassium Level 3.7 Chloride Level 105 Carbon Dioxide Level 23 Anion Gap 12 Blood Urea Nitrogen 31 #H Creatinine 5.46 H Est Glomerular 8 L Filtrat Rate mL/min Glucose Level 158 Calcium Level 9.1 Test 12/05/18 16:38 Bedside Glucose 197 Medications Medication Current Medications IV Flush (NS 3 ml) 3 ml PER PROTOCOL IV ; Start 11/30/18 at 08:30 Ondansetron HCl (Zofran Inj) 4 mg Q6H PRN IV NAUSEA/VOMITING; Start 11/30/18 at 08:30 Acetaminophen (Tylenol Tab) 650 mg Q6H PRN PO .PAIN 1-3 OR TEMP; Start 11/30/18 at 08:30 Acetaminophen/ Hydrocodone Bitart ([place] (5/325)) 1 tab Q6H PRN PO .MOD PAIN 4- 6; Start 11/30/18 at 08:30 Docusate Sodium (Colace) 100 mg Q12H PRN PO .CONSTIPATION; Start 11/30/18 at 08:30 Magnesium Hydroxide (Milk Of Mag) 30 ml DAILY PRN PO .CONSTIPATION; Start 11/30/18 at 08:30 Albuterol/ Ipratropium (Duoneb) 3 ml Q4H RESP THERAPY PRN HHN SHORTNESS OF BREATH Last administered on 12/02/18 16:09; Admin Dose 3 ML; Start 11/30/18 at 08:30 Hydralazine HCl (Apresoline) 10 mg Q6H PRN IV ELEVATED BLOOD PRESSURE; Start 11/30/18 at 08:30 Nitroglycerin (Nitroglycerin (Sl Tab) 0.4 Mg) 1 tab Q5M PRN SL ANGINA; Start 11/30/18 at 08:30 Folic Acid (Folic Acid) 1 mg DAILY PO Last administered on 12/05/18 07:47; Adm in Dose 1 MG; Start 11/30/18 at 09:00 Lactulose (Enulose) 20 gm Q6 PO Last administered on 12/05/18 05:45; Admin Dose 20 GM; Start 11/30/18 at 12:00 Levothyroxine Sodium (Synthroid) 88 mcg BEFORE BREAKFAST PO Last administered on 12/03/18 06:12; Admin Dose 88 MCG; Start 12/01/18 at 07:00 Pantoprazole (Protonix Tab) 40 mg DAILY@0600 PO Last administered on 12/05/18 05:46; Admin Dose 40 MG; Start 11/30/18 at 09:00 Rifaximin (Xifaxan) 550 mg BID PO Last administered on 12/05/18 07:47; Admin Dose 550 MG; Start 11/30/18 at 11:00 Miscellaneous Information 1 cap WITH MEALS XX ; Start 11/30/18 at 12:00; Status Hold Heparin Sodium (Porcine) (Heparin (1000 Units/ml)) 4,000 unit AFTER DIALYSIS CATHETER Last administered on 12/05/18 12:29; Admin Dose 4,000 UNIT; Start 11/30/18 at 10:00 Albumin Human 100 ml @ 100 mls/hr WITH DIALYSIS PRN IV SBP <90 DURING DIALYSIS Last administered on 12/05/18 09:31; Admin Dose 100 MLS/HR; Start 11/30/18 at 10:00 Sodium Chloride (NS) -To prime the dialy... DIRECTED FOR HD PRN IV HD; Start 11/30/18 at 10:00 Insulin Aspart (Novolog Insulin Pen) NOVOLOG *MILD* ALGORITHM WITH MEALS BEDTIME SC Last administered on 12/05/18 16:46; Admin Dose 2 UNIT; Start 11/30 at 12:00 Miscellaneous Information 1 ea NOTE XX ; Start 11/30/18 at 10:00 Glucose (Glutose) 15 gm Q15M PRN PO DECREASED GLUCOSE; Start 11/30/18 at 10:00 Glucose (Glutose) 22.5 gm Q15M PRN PO DECREASED GLUCOSE; Start 11/30/18 at 10:00 Dextrose (D50w Syringe) 25 ml Q15M PRN IV DECREASED GLUCOSE Last administered on 12/02/18 07:07; Admin Dose 25 ML; Start 11/30/18 at 10:00 Dextrose (D50w Syringe) 50 ml Q15M PRN IV DECREASED GLUCOSE Last administered on 12/01/18 07:58; Admin Dose 50 ML; Start 11/30/18 at 10:00 Glucagon (Glucagen) 1 mg Q15M PRN IM DECREASED GLUCOSE; Start 11/30/18 at 10:00 Glucose (Glutose) 15 gm Q15M PRN BUCCAL DECREASED GLUCOSE; Start 11/30/18 at 10:00 Senna (Senokot) 2 tab BID PO Last administered on 12/05/18 07:47; Admin Dose 2 TAB; Start 12/01/18 at 21:00 Hydromorphone HCl (Dilaudid) 2 mg Q3H PRN PO BREAKTHROUGH PAIN Last administered on 12/03/18 08:42; Admin Dose 2 MG; Start 12/01/18 at 15:30 Ceftriaxone Sodium 50 ml @ 100 mls/hr Q24H IVPB Last administered on 12/05/18 15:31; Admin Dose 100 MLS/HR; Start 12/02/18 at 15:00 ALLISON RAMIREZ MD Dec 05, 2018 17:02
[2018-12-05] MEDS: HYDROmorphONE 0.5 MG/0.5 ML SYG IV PRN (22:14)
[2018-12-06] VITALS (10 sets, daily range): BP systolic 103–138; BP diastolic 56–92; PULSE 77–92; RESP 16–18
[2018-12-06] MEDS: HYDROmorphONE 0.5 MG/0.5 ML SYG IV PRN ×2 (03:27→08:00)
[2018-12-06] MEDS: LACTULOSE 30ML CUP PO SCH ×5 (06:00→17:14)
[2018-12-06] MEDS: PANTOPRAZOLE (EC) 40 MG TAB PO SCH (06:28)
[2018-12-06] MEDS: LEVOTHYROXINE 88 MCG TAB PO SCH (07:00)
[2018-12-06] MEDS: RIFAXIMIN 550 MG TAB PO SCH ×2 (08:01→20:29)
[2018-12-06] MEDS: SENNA TAB PO SCH ×2 (08:01→20:29)
[2018-12-06] MEDS: FOLIC ACID 1 MG TAB PO SCH (08:01)
[2018-12-06] MEDS: INSULIN ASPART [NOVOLOG] 3 ML PEN SC SCH ×4 (08:07→20:36)
--- NOTE | 2018-12-06 12:45 | CONS ---
Assessment/Plan Assessment/Plan Assessment/Plan (Daily) 1. ESRD on HD - pt is currently confused, unable to know HD schedule, 2. acute abdominal pain 3. H/o Hypertension 4. H/o DM II 5. H/o Liver cirrhosis Plan: -HD yesterday - 1 L removed s/p Paracentesis 3.1 L removed on 12/02/18 Continue current meds , IV dilaudid for pain control will follow up Consultation Date/Type/Reason Admit Date/Time Dec 01, 2018 at 2:56 pm Initial Consult Date 11/30/18 Requesting Provider: SIRI DISLA Date/Time of Note DATE: 12/06/18 TIME: 12:43 Exam/Review of Systems Exam Vitals Vital Signs Date Temp Pulse Resp B/P (MAP) Pulse Ox O2 O2 Flow FiO2 Time Delivery Rate 12/06/18 97.8 87 16 122/80 99 Room Air 11:30 (94) 12/03/18 2.0 11:01 Intake and Output 12/05/18 12/05/18 12/06/18 1515:00 23:00 07:00 IntakeIntake Total 550 ml 200 ml OutputOutput Total 1500 ml BalanceBalance -1500 ml 550 ml 200 ml Psych: nl mood/affect Cardiovascular: nl pulses Gastrointestinal: soft Musculoskeletal: nl extremities to inspection Extremities: normal pulses Results Result Diagram: 12/06/18 0536 12/06/18 0536 Results 24hrs Laboratory Tests Test 12/05/18 16:38 12/05/18 20:32 12/06/18 05:36 12/06/18 08:01 Bedside Glucose 197 291 H 281 H White Blood Count 7.0 Red Blood Count 2.37 L Hemoglobin 8.3 L Hematocrit 23.4 L Mean Corpuscular Volume 98.7 Mean Corpuscular 35.0 H Hemoglobin Mean Corpuscular 35.5 Hemoglobin Concent Red Cell Distribution 17.0 H Width Platelet Count 22 #*L Mean Platelet Volume Immature Granulocytes % 0.400 Neutrophils % 51.0 Lymphocytes % 27.6 Monocytes % 15.7 H Eosinophils % 4.9 Basophils % 0.4 Nucleated Red Blood 0.0 Cells % Immature Granulocytes # 0.030 Neutrophils # 3.6 Lymphocytes # 1.9 Monocytes # 1.1 H Eosinophils # 0.3 Basophils # 0.0 Nucleated Red Blood 0.0 Cells # Sodium Level 136 Potassium Level 3.6 Chloride Level 101 Carbon Dioxide Level 24 Anion Gap 11 Blood Urea Nitrogen 21 H Creatinine 3.72 #H Est Glomerular Filtrat 13 L Rate mL/min Glucose Level 254 H Calcium Level 9.0 Test 12/06/18 12:14 Bedside Glucose 172 Medications Medication Current Medications IV Flush (NS 3 ml) 3 ml PER PROTOCOL IV ; Start 11/30/18 at 08:30 Ondansetron HCl (Zofran Inj) 4 mg Q6H PRN IV NAUSEA/VOMITING; Start 11/30/18 at 08:30 Acetaminophen (Tylenol Tab) 650 mg Q6H PRN PO .PAIN 1-3 OR TEMP; Start 11/30/18 at 08:30 Acetaminophen/ Hydrocodone Bitart ([place] (5/325)) 1 tab Q6H PRN PO .MOD PAIN 4- 6; Start 11/30/18 at 08:30 Docusate Sodium (Colace) 100 mg Q12H PRN PO .CONSTIPATION; Start 11/30/18 at 08:30 Magnesium Hydroxide (Milk Of Mag) 30 ml DAILY PRN PO .CONSTIPATION; Start 11/30/18 at 08:30 Albuterol/ Ipratropium (Duoneb) 3 ml Q4H RESP THERAPY PRN HHN SHORTNESS OF BREATH Last administered on 12/02/18at 16:09; Admin Dose 3 ML; Start 11/30/18 at 08:30 Hydralazine HCl (Apresoline) 10 mg Q6H PRN IV ELEVATED BLOOD PRESSURE; Start 11/30/18 at 08:30 Nitroglycerin (Nitroglycerin (Sl Tab) 0.4 Mg) 1 tab Q5M PRN SL ANGINA; Start 11/30/18 at 08:30 Folic Acid (Folic Acid) 1 mg DAILY PO Last administered on 12/06/18at 08:01; Admin Dose 1 MG; Start 11/30/18 at 09:00 Lactulose (Enulose) 20 gm Q6 PO Last administered on 12/05/18at 05:45; Admin Dose 20 GM; Start 11/30/18 at 12:00 Levothyroxine Sodium (Synthroid) 88 mcg BEFORE BREAKFAST PO Last administered on 12/03/18at 06:12; Admin Dose 88 MCG; Start 12/01/18 at 07:00 Pantoprazole (Protonix Tab) 40 mg DAILY@0600 PO Last administered on 12/06/18at 06:28; Admin Dose 40 MG; Start 11/30/18 at 09:00 Rifaximin (Xifaxan) 550 mg BID PO Last administered on 12/06/18at 08:01; Admin Dose 550 MG; Start 11/30/18 at 11:00 Miscellaneous Information 1 cap WITH MEALS XX ; Start 11/30/18 at 12:00; Status Hold Heparin Sodium (Porcine) (Heparin (1000 Units/ml)) 4,000 unit AFTER DIALYSIS CATHETER Last administered on 12/05/18at 12:29; Admin Dose 4,000 UNIT; Start 11/30/18 at 10:00 Albumin Human 100 ml @ 100 mls/hr WITH DIALYSIS PRN IV SBP <90 DURING DIALYSIS Last administered on 12/05/18at 09:31; Admin Dose 100 MLS/HR; Start 11/30/18 at 10:00 Sodium Chloride (NS) -To prime the dialy... DIRECTED FOR HD PRN IV HD; Start 11/30/18 at 10:00 Insulin Aspart (Novolog Insulin Pen) NOVOLOG *MILD* ALGORITHM WITH MEALS BEDTIME SC Last administered on 12/06/18at 12:23; Admin Dose 1 UNIT; Start 11/30/18 at 12:00 Miscellaneous Information 1 ea NOTE XX ; Start 11/30/18 at 10:00 Glucose (Glutose) 15 gm Q15M PRN PO DECREASED GLUCOSE; Start 11/30/18 at 10:00 Glucose (Glutose) 22.5 gm Q15M PRN PO DECREASED GLUCOSE; Start 11/30/18 at 10:00 Dextrose (D50w Syringe) 25 ml Q15M PRN IV DECREASED GLUCOSE Last administered on 12/02/18at 07:07; Admin Dose 25 ML; Start 11/30/18 at 10:00 Dextrose (D50w Syringe) 50 ml Q15M PRN IV DECREASED GLUCOSE Last administered on 12/01/18at 07:58; Admin Dose 50 ML; Start 11/30/18 at 10:00 Glucagon (Glucagen) 1 mg Q15M PRN IM DECREASED GLUCOSE; Start 11/30/18 at 10:00 Glucose (Glutose) 15 gm Q15M PRN BUCCAL DECREASED GLUCOSE; Start 11/30/18 at 10:00 Senna (Senokot) 2 tab BID PO Last administered on 12/06/18 08:01; Admin Dose 2 TAB; Start 12/01/18 at 21:00 Hydromorphone HCl (Dilaudid) 2 mg Q3H PRN PO BREAKTHROUGH PAIN Last administered on 12/03/18 08:42; Admin Dose 2 MG; Start 12/01/18 at 15:30 Ceftriaxone Sodium 50 ml @ 100 mls/hr Q24H IVPB Last administered on 12/05/18 15:31; Admin Dose 100 MLS/HR; Start 12/02/18 at 15:00 HOLDEN LEVY Dec 06, 2018 12:45 pm
--- NOTE | 2018-12-06 15:04 | PN ---
Date/Time of Note Date/Time of Note DATE: 12/06/18 TIME: 15:02 Assessment/Plan VTE Prophylaxis Risk score (from Nsg)>0 risk: 1 SCD applied (from Nsg): Yes Pharmacological prophylaxis: NA/contraindicated Pharm contraindication: thrombocytopenia Lines/Catheters IV Catheter Type (from Nrsg): permacath Urinary Cath still in place: No Assessment/Plan Assessment/Plan A 53-year-old female coming with lethargy and abdominal pain. Prior history of cirrhosis, diabetes, hypothyroidism, end-stage renal disease. Found to have SBP #Abdominal pain #SBP - paracentesis 12/02/18 with >250 PMNs - Ascites culture growing fluoroquinolone-resistant E Coli. Cont ceftriaxone q24h (12/02-12/06) and albumin on day 1 and day 3. - CT shows possible splenic infarct with embolization coil. According to [facility] resident this was done in 2012. Unlikely it is contributing to pain. - Cont lactulose. Goal 3-4 bowel movements per day. . - Pain control with PO dilaudid. No morphine in ESRD. #Diabetes - Holding all insulin. #Hypothyroid - Cont levothyroxine. #ESRD - Renal consulted. Last HD 12/03. #Cirrhosis - For HE, continue lactulose and rifaximin. - Thrombocytopenia. DVT: SCDs GI: Protonix Result Diagram: 12/06/18 0536 12/06/18 0536 Subjective 24 Hr Interval Summary Free Text/Dictation No acute overnight events. Patient much more awake today. Still slightly confused. Abdominal pain improving. Exam/Review of Systems Exam Vitals Vital Signs Date Temp Pulse Resp B/P (MAP) Pulse Ox O2 O2 Flow FiO2 Time Delivery Rate 12/06/18 79 12:01 12/06/18 97.8 16 122/80 99 Room Air 11:30 (94) 12/03/18 2.0 11:01 Intake and Output 12/05/18 12/05/18 12/06/18 1515:00 23:00 07:00 IntakeIntake Total 550 ml 200 ml OutputOutput Total 1500 ml BalanceBalance -1500 ml 550 ml 200 ml Exam GENERAL: Frail appearing woman lying in bed, lethargic. HEENT: Pupils equal, round, react to light. Extraocular muscles intact. NECK: Supple, no thyromegaly. LUNGS: Clear to auscultation bilaterally. CARDIOVASCULAR: S1, S2 heard. No rubs or gallops. ABDOMEN: Soft, mildly tender to palpation bilateral lower quadrants. Moderately distended. Hypoactive bowel sounds. MUSCULOSKELETAL: No lower extremity edema bilaterally. Results Results 24hrs Laboratory Tests Test 12/05/18 16:38 12/05/18 20:32 12/06/18 05:36 12/06/18 08:01 Bedside Glucose 197 291 H 281 H White Blood Count 7.0 Red Blood Count 2.37 L Hemoglobin 8.3 L Hematocrit 23.4 L Mean Corpuscular Volume 98.7 Mean Corpuscular 35.0 H Hemoglobin Mean Corpuscular 35.5 Hemoglobin Concent Red Cell Distribution 17.0 H Width Platelet Count 22 #*L Mean Platelet Volume Immature Granulocytes % 0.400 Neutrophils % 51.0 Lymphocytes % 27.6 Monocytes % 15.7 H Eosinophils % 4.9 Basophils % 0.4 Nucleated Red Blood 0.0 Cells % Immature Granulocytes # 0.030 Neutrophils # 3.6 Lymphocytes # 1.9 Monocytes # 1.1 H Eosinophils # 0.3 Basophils # 0.0 Nucleated Red Blood 0.0 Cells # Sodium Level 136 Potassium Level 3.6 Chloride Level 101 Carbon Dioxide Level 24 Anion Gap 11 Blood Urea Nitrogen 21 H Creatinine 3.72 #H Est Glomerular Filtrat 13 L Rate mL/min Glucose Level 254 H Calcium Level 9.0 Test 12/06/18 12:14 Bedside Glucose 172 Medications Medication Current Medications IV Flush (NS 3 ml) 3 ml PER PROTOCOL IV ; Start 11/30/18 at 08:30 Ondansetron HCl (Zofran Inj) 4 mg Q6H PRN IV NAUSEA/VOMITING; Start 11/30/18 at 08:30 Acetaminophen (Tylenol Tab) 650 mg Q6H PRN PO .PAIN 1-3 OR TEMP; Start 11/30/18 at 08:30 Acetaminophen/ Hydrocodone Bitart ([place] (5/325)) 1 tab Q6H PRN PO .MOD PAIN 4- 6; Start 11/30/18 at 08:30 Docusate Sodium (Colace) 100 mg Q12H PRN PO .CONSTIPATION; Start 11/30/18 at 08:30 Magnesium Hydroxide (Milk Of Mag) 30 ml DAILY PRN PO .CONSTIPATION; Start 11/30/18 at 08:30 Albuterol/ Ipratropium (Duoneb) 3 ml Q4H RESP THERAPY PRN HHN SHORTNESS OF BREATH Last administered on 12/02/18 16:09; Admin Dose 3 ML; Start 11/30/18 at 08:30 Hydralazine HCl (Apresoline) 10 mg Q6H PRN IV ELEVATED BLOOD PRESSURE; Start 11/30/18 at 08:30 Nitroglycerin (Nitroglycerin (Sl Tab) 0.4 Mg) 1 tab Q5M PRN SL ANGINA; Start 11/30/18 at 08:30 Folic Acid (Folic Acid) 1 mg DAILY PO Last administered on 12/06/18 08:01; Admin Dose 1 MG; Start 11/30/18 at 09:00 Lactulose (Enulose) 20 gm Q6 PO Last administered on 12/05/18 05:45; Admin Dose 20 GM; Start 11/30/18 at 12:00 Levothyroxine Sodium (Synthroid) 88 mcg BEFORE BREAKFAST PO Last administered on 12/03/18 06:12; Admin Dose 88 MCG; Start 12/01/18 at 07:00 Pantoprazole (Protonix Tab) 40 mg DAILY@0600 PO Last administered on 12/06/18 06:28; Admin Dose 40 MG; Start 11/30/18 at 09:00 Rifaximin (Xifaxan) 550 mg BID PO Last administered on 12/06/18 08:01; Admin Dose 550 MG; Start 11/30/18 at 11:00 Miscellaneous Information 1 cap WITH MEALS XX ; Start 11/30/18 at 12:00; Status Hold Heparin Sodium (Porcine) (Heparin (1000 Units/ml)) 4,000 unit AFTER DIALYSIS CATHETER Last administered on 12/05/18 12:29; Admin Dose 4,000 UNIT; Start 11/30/18 at 10:00 Albumin Human 100 ml @ 100 mls/hr WITH DIALYSIS PRN IV SBP <90 DURING DIALYSIS Last administered on 12/05/18 09:31; Admin Dose 100 MLS/HR; Start 11/30/18 at 10:00 Sodium Chloride (NS) -To prime the dialy... DIRECTED FOR HD PRN IV HD; Start 11/30/18 at 10:00 Insulin Aspart (Novolog Insulin Pen) NOVOLOG *MILD* ALGORITHM WITH MEALS BEDTIME SC Last administered on 3/9/19at 12:23; Admin Dose 1 UNIT; Start 11/30/18 at 12:00 Miscellaneous Information 1 ea NOTE XX ; Start 11/30/18 at 10:00 Glucose (Glutose) 15 gm Q15M PRN PO DECREASED GLUCOSE; Start 11/30/18 at 10:00 Glucose (Glutose) 22.5 gm Q15M PRN PO DECREASED GLUCOSE; Start 11/30/18 at 10:00 Dextrose (D50w Syringe) 25 ml Q15M PRN IV DECREASED GLUCOSE Last administered on 12/02/18at 07:07; Admin Dose 25 ML; Start 11/30/18 at 10:00 Dextrose (D50w Syringe) 50 ml Q15M PRN IV DECREASED GLUCOSE Last administered on 12/01/18at 07:58; Admin Dose 50 ML; Start 11/30/18 at 10:00 Glucagon (Glucagen) 1 mg Q15M PRN IM DECREASED GLUCOSE; Start 11/30/18 at 10:00 Glucose (Glutose) 15 gm Q15M PRN BUCCAL DECREASED GLUCOSE; Start 11/30/18 at 10:00 Senna (Senokot) 2 tab BID PO Last administered on 12/06/18 08:01; Admin Dose 2 TAB; Start 12/01/18 at 21:00 Hydromorphone HCl (Dilaudid) 2 mg Q3H PRN PO BREAKTHROUGH PAIN Last administered on 12/03/18 08:42; Admin Dose 2 MG; Start 12/01/18 at 15:30 Ceftriaxone Sodium 50 ml @ 100 mls/hr Q24H IVPB Last administered on 12/05/18 15:31; Admin Dose 100 MLS/HR; Start 12/02/18 at 15:00 ALLISON RAMIREZ MD Dec 06, 2018 15:03
[2018-12-06] MEDS: CEFTRIAXONE 1 GM/50 ML (PMX) 50 ML IVPB SCH (15:21)
[2018-12-06] MEDS: HYDROmorphONE 2 MG TAB PO PRN (20:29)
[2018-12-07] VITALS (11 sets, daily range): BP systolic 102–142; BP diastolic 62–88; PULSE 75–111; RESP 16–20
[2018-12-07] MEDS: PANTOPRAZOLE (EC) 40 MG TAB PO SCH (06:06)
[2018-12-07] MEDS: LACTULOSE 30ML CUP PO SCH ×5 (06:06→23:51)
[2018-12-07] MEDS: LEVOTHYROXINE 88 MCG TAB PO SCH (06:44)
[2018-12-07] MEDS: INSULIN ASPART [NOVOLOG] 3 ML PEN SC SCH ×4 (07:39→20:27)
[2018-12-07] MEDS: HYDROmorphONE 2 MG TAB PO PRN (09:11)
[2018-12-07] MEDS: RIFAXIMIN 550 MG TAB PO SCH ×2 (09:11→20:33)
[2018-12-07] MEDS: SENNA TAB PO SCH ×2 (09:11→20:33)
[2018-12-07] MEDS: FOLIC ACID 1 MG TAB PO SCH (09:11)
[2018-12-07] MEDS: CEFTRIAXONE 1 GM/50 ML (PMX) 50 ML IVPB SCH (14:55)
--- NOTE | 2018-12-07 15:44 | CONS ---
Assessment/Plan Assessment/Plan Assessment/Plan (Daily) 60 yo F with hx of HTN, DM who presents with expressive aphasia, R facial weakness, L hemiparesis and hemisensory loss after being found down at home. MRI brain is notable for multifocal R hemispheric infarcts... CTA neck showed R ICA occlusion Assessment/Plan (Daily) 1. acute Kidney injury due to ATN from Rhabdomyolysis + prerenal azotemia from dehydration 2. acute hypernatremia due to dehydration 3. Moderate to severe dehydration 4. metabolic acidosis due to lactic acidosis + Renal failure 5. Altered mental status multifactorial due to Acute CVA + Acute renal failure + dehydration 6. acute CVA - CT head showed acute infarct of the right inferior frontal lobe with a slightly older of the a recent infarct of the superior right frontal lobe 7. acute rhabdomyolysis with CK total 2323 8. H/o HTN 9. H/o DM II Plan: MRI brain is notable for multifocal R hemispheric infarcts... CTA neck showed R ICA occlusion - Neurology has been following s/p vascular surgery consult BUN/Cr improved to 25-6/0.66- pt is on Tube feeding ,Cardizem for rate control Renal US showed medical renal disease, left renal atrophy Neurology following will follow up Consultation Date/Type/Reason Admit Date/Time Dec 01, 2018 at 14:56 Initial Consult Date 11/30/18 Requesting Provider: SIRI DISLA Date/Time of Note DATE: 12/07/18 TIME: 15:43 Exam/Review of Systems Exam Vitals Vital Signs Date Temp Pulse Resp B/P (MAP) Pulse Ox O2 O2 Flow FiO2 Time Delivery Rate 12/07/18 97.6 77 16 110/62 97 Room Air 15:16 (78) 12/03/18 2.0 11:01 Intake and Output 12/06/18 12/06/18 12/07/18 1515:00 23:00 07:00 IntakeIntake Total 300 ml BalanceBalance 300 ml Results Result Diagram: 12/07/18 0552 12/07/18 0552 Results 24hrs Laboratory Tests Test 12/06/18 17:13 12/06/18 20:22 12/07/18 01:22 12/07/18 05:52 Bedside Glucose 166 234 H 258 H White Blood Count 6.2 Red Blood Count 2.38 L Hemoglobin 8.3 L Hematocrit 23.5 L Mean Corpuscular 98.7 Volume Mean Corpuscular 34.9 H Hemoglobin Mean Corpuscular 35.3 Hemoglobin Concent Red Cell 17.1 H Distribution Width Platelet Count 21 *L Mean Platelet Volume Immature 0.300 Granulocytes % Neutrophils % 51.0 Lymphocytes % 26.2 Monocytes % 15.9 H Eosinophils % 6.1 Basophils % 0.5 Nucleated Red Blood 0.0 Cells % Immature 0.020 Granulocytes # Neutrophils # 3.2 Lymphocytes # 1.6 Monocytes # 1.0 H Eosinophils # 0.4 Basophils # 0.0 Nucleated Red Blood 0.0 Cells # Sodium Level 137 Potassium Level 3.8 Chloride Level 99 Carbon Dioxide Level 26 Anion Gap 12 Blood Urea Nitrogen 31 H Creatinine 5.01 H Est Glomerular 9 L Filtrat Rate mL/min Glucose Level 193 Calcium Level 9.0 Test 12/07/18 07:34 12/07/18 11:36 Bedside Glucose 211 206 Medications Medication Current Medications IV Flush (NS 3 ml) 3 ml PER PROTOCOL IV ; Start 11/30/18 at 08:30 Ondansetron HCl (Zofran Inj) 4 mg Q6H PRN IV NAUSEA/VOMITING; Start 11/30/18 at 08:30 Acetaminophen (Tylenol Tab) 650 mg Q6H PRN PO .PAIN 1-3 OR TEMP; Start 11/30/18 at 08:30 Acetaminophen/ Hydrocodone Bitart ([place] (5/325)) 1 tab Q6H PRN PO .MOD PAIN 4- 6; Start 11/30/18 at 08:30 Docusate Sodium (Colace) 100 mg Q12H PRN PO .CONSTIPATION; Start 11/30/18 at 08:30 Magnesium Hydroxide (Milk Of Mag) 30 ml DAILY PRN PO .CONSTIPATION; Start 11/30/18 at 08:30 Albuterol/ Ipratropium (Duoneb) 3 ml Q4H RESP THERAPY PRN HHN SHORTNESS OF BREATH Last administered on 12/02/18at 16:09; Admin Dose 3 ML; Start 11/30/18 at 08:30 Hydralazine HCl (Apresoline) 10 mg Q6H PRN IV ELEVATED BLOOD PRESSURE; Start 11/30/18 at 08:30 Nitroglycerin (Nitroglycerin (Sl Tab) 0.4 Mg) 1 tab Q5M PRN SL ANGINA; Start 11/30/18 at 08:30 Folic Acid (Folic Acid) 1 mg DAILY PO Last administered on 12/07/18 09:11; Admin Dose 1 MG; Start 11/30/18 at 09:00 Lactulose (Enulose) 20 gm Q6 PO Last administered on 12/07/18 13:22; Admin Dose 20 GM; Start 11/30/18 at 12:00 Levothyroxine Sodium (Synthroid) 88 mcg BEFORE BREAKFAST PO Last administered on 12/07/18 06:44; Admin Dose 88 MCG; Start 12/01/18 at 07:00 Pantoprazole (Protonix Tab) 40 mg DAILY@0600 PO Last administered on 12/07/18 06:06; Admin Dose 40 MG; Start 11/30/18 at 09:00 Rifaximin (Xifaxan) 550 mg BID PO Last administered on 12/07/18 09:11; Admin Dose 550 MG; Start 11/30/18 at 11:00 Miscellaneous Information 1 cap WITH MEALS XX ; Start 11/30/18 at 12:00; Status Hold Heparin Sodium (Porcine) (Heparin (1000 Units/ml)) 4,000 unit AFTER DIALYSIS CATHETER Last administered on 12/05/18 12:29; Admin Dose 4,000 UNIT; Start 11/30/18 at 10:00 Albumin Human 100 ml @ 100 mls/hr WITH DIALYSIS PRN IV SBP <90 DURING DIALYSIS Last administered on 12/05/18 09:31; Admin Dose 100 MLS/HR; Start 11/30/18 at 10:00 Sodium Chloride (NS) -To prime the dialy... DIRECTED FOR HD PRN IV HD; Start 11/30/18 at 10:00 Insulin Aspart (Novolog Insulin Pen) NOVOLOG *MILD* ALGORITHM WITH MEALS BEDTIME SC Last administered on 12/07/18 11:40; Admin Dose 2 UNIT; Start 11/30/18 at 12:00 Miscellaneous Information 1 ea NOTE XX ; Start 11/30/18 at 10:00 Glucose (Glutose) 15 gm Q15M PRN PO DECREASED GLUCOSE; Start 11/30/18 at 10:00 Glucose (Glutose) 22.5 gm Q15M PRN PO DECREASED GLUCOSE; Start 11/30/18 at 10:00 Dextrose (D50w Syringe) 25 ml Q15M PRN IV DECREASED GLUCOSE Last administered on 12/02/18 07:07; Admin Dose 25 ML; Start 11/30/18 at 10:00 Dextrose (D50w Syringe) 50 ml Q15M PRN IV DECREASED GLUCOSE Last administered on 12/01/18at 07:58; Admin Dose 50 ML; Start 11/30/18 at 10:00 Glucagon (Glucagen) 1 mg Q15M PRN IM DECREASED GLUCOSE; Start 11/30/18 at 10:00 Glucose (Glutose) 15 gm Q15M PRN BUCCAL DECREASED GLUCOSE; Start 11/30/18 at 10:00 Senna (Senokot) 2 tab BID PO Last administered on 12/07/18 09:11; Admin Dose 2 TAB; Start 12/01/18 at 21:00 Hydromorphone HCl (Dilaudid) 2 mg Q3H PRN PO BREAKTHROUGH PAIN Last admini stered on 12/07/18 09:11; Admin Dose 2 MG; Start 12/01/18 at 15:30 Ceftriaxone Sodium 50 ml @ 100 mls/hr Q24H IVPB Last administered on 12/07/18 14:55; Admin Dose 100 MLS/HR; Start 12/02/18 at 15:00 HOLDEN LEVY Dec 07, 2018 15:44
--- NOTE | 2018-12-07 16:44 | PN ---
Date/Time of Note Date/Time of Note DATE: 12/07/18 TIME: 16:42 Assessment/Plan VTE Prophylaxis Risk score (from Nsg)>0 risk: 5 SCD applied (from Ns): Yes Pharmacological prophylaxis: NA/contraindicated Pharm contraindication: thrombocytopenia Lines/Catheters IV Catheter Type (from Nrsg): Saline Lock Urinary Cath still in place: No Assessment/Plan Assessment/Plan A 53-year-old female coming with lethargy and abdominal pain. Prior history of cirrhosis, diabetes, hypothyroidism, end-stage renal disease. Found to have SBP #Abdominal pain #SBP - paracentesis 12/02/18 with >250 PMNs - Ascites culture growing fluoroquinolone-resistant E Coli. Cont ceftriaxone q2 4h (12/02-12/08) and albumin on day 1 and day 3. - CT shows possible splenic infarct with embolization coil. According to [facility] resident this was done in 2012. Unlikely it is contributing to pain. - Cont lactulose. Goal 3-4 bowel movements per day. . - Pain control with PO dilaudid. No morphine in ESRD. #Diabetes - Holding all insulin. #Hypothyroid - Cont levothyroxine. #ESRD - Renal consulted. Last HD 12/03. #Cirrhosis - For HE, continue lactulose and rifaximin. - Thrombocytopenia. DVT: SCDs GI: Protonix Dispo: Patient very deconditioned and still with encephalopathy with mental slowing. Will need to discuss with daughter how close she is to baseline. Likely will benefit from short-term SNF prior to discharge. Result Diagram: 12/07/18 0552 12/07/18 0552 Subjective 24 Hr Interval Summary Free Text/Dictation No acute overnight events. Got dilaudid for abdominal pain this morning. Still hasn't walked out of bed. Exam/Review of Systems Exam Vitals Vital Signs Date Temp Pulse Resp B/P (MAP) Pulse Ox O2 O2 Flow FiO2 Time Delivery Rate 12/07/18 97.6 77 16 110/62 97 Room Air 15:16 (78) 12/03/18 2.0 11:01 Intake and Output 12/06/18 12/06/18 12/07/18 1414:59 22:59 06:59 IntakeIntake Total 300 ml BalanceBalance 300 ml Exam GENERAL: Frail appearing woman lying in bed, lethargic. HEENT: Pupils equal, round, react to light. Extraocular muscles intact. NECK: Supple, no thyromegaly. LUNGS: Clear to auscultation bilaterally. CARDIOVASCULAR: S1, S2 heard. No rubs or gallops. ABDOMEN: Soft, mildly tender to palpation bilateral lower quadrants. Moderately distended. Hypoactive bowel sounds. MUSCULOSKELETAL: No lower extremity edema bilaterally. Results Results 24hrs Laboratory Tests Test 12/06/18 17:13 12/06/18 20:22 12/07/18 01:22 12/07/18 05:52 Bedside Glucose 166 234 H 258 H White Blood Count 6.2 Red Blood Count 2.38 L Hemoglobin 8.3 L Hematocrit 23.5 L Mean Corpuscular 98.7 Volume Mean Corpuscular 34.9 H Hemoglobin Mean Corpuscular 35.3 Hemoglobin Concent Red Cell 17.1 H Distribution Width Platelet Count 21 *L Mean Platelet Volume Immature 0.300 Granulocytes % Neutrophils % 51.0 Lymphocytes % 26.2 Monocytes % 15.9 H Eosinophils % 6.1 Basophils % 0.5 Nucleated Red Blood 0.0 Cells % Immature 0.020 Granulocytes # Neutrophils # 3.2 Lymphocytes # 1.6 Monocytes # 1.0 H Eosinophils # 0.4 Basophils # 0.0 Nucleated Red Blood 0.0 Cells # Sodium Level 137 Potassium Level 3.8 Chloride Level 99 Carbon Dioxide Level 26 Anion Gap 12 Blood Urea Nitrogen 31 H Creatinine 5.01 H Est Glomerular 9 L Filtrat Rate mL/min Glucose Level 193 Calcium Level 9.0 Test 12/07/18 07:34 12/07/18 11:36 Bedside Glucose 211 206 Medications Medication Current Medications IV Flush (NS 3 ml) 3 ml PER PROTOCOL IV ; Start 11/30/18 at 08:30 Ondansetron HCl (Zofran Inj) 4 mg Q6H PRN IV NAUSEA/VOMITING; Start 11/30/18 at 08:30 Acetaminophen (Tylenol Tab) 650 mg Q6H PRN PO .PAIN 1-3 OR TEMP; Start 11/30/18 at 08:30 Acetaminophen/ Hydrocodone Bitart ([place] (5/325)) 1 tab Q6H PRN PO .MOD PAIN 4- 6; Start 11/30/18 at 08:30 Docusate Sodium (Colace) 100 mg Q12H PRN PO .CONSTIPATION; Start 11/30/18 at 08:30 Magnesium Hydroxide (Milk Of Mag) 30 ml DAILY PRN PO .CONSTIPATION; Start 11/30/18 at 08:30 Albuterol/ Ipratropium (Duoneb) 3 ml Q4H RESP THERAPY PRN HHN SHORTNESS OF BREATH Last administered on 12/02/18 16:09; Admin Dose 3 ML; Start 11/30/18 at 08:30 Hydralazine HCl (Apresoline) 10 mg Q6H PRN IV ELEVATED BLOOD PRESSURE; Start 11/30/18 at 08:30 Nitroglycerin (Nitroglycerin (Sl Tab) 0.4 Mg) 1 tab Q5M PRN SL ANGINA; Start 11/30/18 at 08:30 Folic Acid (Folic Acid) 1 mg DAILY PO Last administered on 12/07/18 09:11; Admin Dose 1 MG; Start 11/30/18 at 09:00 Lactulose (Enulose) 20 gm Q6 PO Last administered on 12/07/18 13:22; Admin Dose 20 GM; Start 11/30/18 at 12:00 Levothyroxine Sodium (Synthroid) 88 mcg BEFORE BREAKFAST PO Last administered on 12/07/18 06:44; Admin Dose 88 MCG; Start 12/01/18 at 07:00 Pantoprazole (Protonix Tab) 40 mg DAILY@0600 PO Last administered on 12/07/18 06:06; Admin Dose 40 MG; Start 11/30/18 at 09:00 Rifaximin (Xifaxan) 550 mg BID PO Last administered on 12/07/18 09:11; Admin Dose 550 MG; Start 11/30/18 at 11:00 Miscellaneous Information 1 cap WITH MEALS XX ; Start 11/30/18 at 12:00; Status Hold Heparin Sodium (Porcine) (Heparin (1000 Units/ml)) 4,000 unit AFTER DIALYSIS CATHETER Last administered on 12/05/18 12:29; Admin Dose 4,000 UNIT; Start 11/30/18 at 10:00 Albumin Human 100 ml @ 100 mls/hr WITH DIALYSIS PRN IV SBP <90 DURING DIALYSIS Last administered on 12/05/18 09:31; Admin Dose 100 MLS/HR; Start 11/30/18 at 10:00 Sodium Chloride (NS) -To prime the dialy... DIRECTED FOR HD PRN IV HD; Start 11/30/18 at 10:00 Insulin Aspart (Novolog Insulin Pen) NOVOLOG *MILD* ALGORITHM WITH MEALS BEDTIME SC Last administered on 12/07/18 11:40; Admin Dose 2 UNIT; Start 11/30/18 at 12:00 Miscellaneous Information 1 ea NOTE XX ; Start 11/30/18 at 10:00 Glucose (Glutose) 15 gm Q15M PRN PO DECREASED GLUCOSE; Start 11/30/18 at 10:00 Glucose (Glutose) 22.5 gm Q15M PRN PO DECREASED GLUCOSE; Start 11/30/18 at 10:00 Dextrose (D50w Syringe) 25 ml Q15M PRN IV DECREASED GLUCOSE Last administered o n 12/02/18 07:07; Admin Dose 25 ML; Start 11/30/18 at 10:00 Dextrose (D50w Syringe) 50 ml Q15M PRN IV DECREASED GLUCOSE Last administered on 12/01/18at 07:58; Admin Dose 50 ML; Start 11/30/18 at 10:00 Glucagon (Glucagen) 1 mg Q15M PRN IM DECREASED GLUCOSE; Start 11/30/18 at 10:00 Glucose (Glutose) 15 gm Q15M PRN BUCCAL DECREASED GLUCOSE; Start 11/30/18 at 10:00 Senna (Senokot) 2 tab BID PO Last administered on 12/07/18 09:11; Admin Dose 2 TAB; Start 12/01/18 at 21:00 Hydromorphone HCl (Dilaudid) 2 mg Q3H PRN PO BREAKTHROUGH PAIN Last administered on 12/07/18 09:11; Admin Dose 2 MG; Start 12/01/18 at 15:30 Ceftriaxone Sodium 50 ml @ 100 mls/hr Q24H IVPB Last administered on 12/07/18 14:55; Admin Dose 100 MLS/HR; Start 12/02/18 at 15:00 ALLISON RAMIREZ MD Dec 07, 2018 16:44
[2018-12-07] MEDS: HYDROCODONE/APAP (5/325) TAB PO PRN (23:55)
[2018-12-08] VITALS (24 sets, daily range): BP systolic 80–115; BP diastolic 54–74; PULSE 73–93; RESP 18–19
[2018-12-08] MEDS: PANTOPRAZOLE (EC) 40 MG TAB PO SCH (06:00)
[2018-12-08] MEDS: LACTULOSE 30ML CUP PO SCH ×3 (06:00→17:15)
[2018-12-08] MEDS: LEVOTHYROXINE 88 MCG TAB PO SCH (06:25)
[2018-12-08] MEDS: RIFAXIMIN 550 MG TAB PO SCH ×3 (08:06→20:39)
[2018-12-08] MEDS: HYDROCODONE/APAP (5/325) TAB PO PRN (08:06)
[2018-12-08] MEDS: FOLIC ACID 1 MG TAB PO SCH (08:06)
[2018-12-08] MEDS: SENNA TAB PO SCH ×3 (08:07→20:39)
[2018-12-08] MEDS: INSULIN ASPART [NOVOLOG] 3 ML PEN SC SCH ×6 (08:14→20:35)
--- NOTE | 2018-12-08 10:47 | CONS ---
Consultation Date/Type/Reason Admit Date/Time Dec 01, 2018 at 14:56 Initial Consult Date 11/30/18 Type of Consult NEPHROLOGY Requesting Provider: SIRI DISLA Date/Time of Note DATE: 12/08/18 TIME: 10:47 Exam/Review of Systems Exam Vitals Vital Signs Date Temp Pulse Resp B/P (MAP) Pulse Ox O2 O2 Flow FiO2 Time Delivery Rate 12/08/18 98.2 76 19 106/63 94 07:10 (77) 12/07/18 Room Air 15:16 Intake and Output 12/07/18 12/07/18 12/08/18 1414:59 22:59 06:59 IntakeIntake Total 680 ml 400 ml BalanceBalance 680 ml 400 ml Results Result Diagram: 12/07/18 0552 12/07/18 0552 Results 24hrs Laboratory Tests Test 12/07/18 11:36 12/07/18 17:11 12/07/18 20:21 12/08/18 02:15 Bedside Glucose 206 205 271 H 286 H Test 12/08/18 07:42 Bedside Glucose 315 H Medications Medication Current Medications IV Flush (NS 3 ml) 3 ml PER PROTOCOL IV ; Start 11/30/18 at 08:30 Ondansetron HCl (Zofran Inj) 4 mg Q6H PRN IV NAUSEA/VOMITING; Start 11/30/18 at 08:30 Acetaminophen (Tylenol Tab) 650 mg Q6H PRN PO .PAIN 1-3 OR TEMP Last administered on 12/07/18at 20:33; Admin Dose 650 MG; Start 11/30/18 at 08:30 Acetaminophen/ Hydrocodone Bitart ([place] (5/325)) 1 tab Q6H PRN PO .MOD PAIN 4- 6 Last administered on 12/08/18at 08:06; Admin Dose 1 TAB; Start 11/30/18 at 08:30 Docusate Sodium (Colace) 100 mg Q12H PRN PO .CONSTIPATION; Start 11/30/18 at 08:30 Magnesium Hydroxide (Milk Of Mag) 30 ml DAILY PRN PO .CONSTIPATION; Start 11/30/18 at 08:30 Albuterol/ Ipratropium (Duoneb) 3 ml Q4H RESP THERAPY PRN HHN SHORTNESS OF BREATH Last administered on 12/02/18at 16:09; Admin Dose 3 ML; Start 11/30/18 at 08:30 Hydralazine HCl (Apresoline) 10 mg Q6H PRN IV ELEVATED BLOOD PRESSURE; Start 11/30/18 at 08:30 Nitroglycerin (Nitroglycerin (Sl Tab) 0.4 Mg) 1 tab Q5M PRN SL ANGINA; Start 11/30/18 at 08:30 Folic Acid (Folic Acid) 1 mg DAILY PO Last administered on 12/08/18 08:06; Admin Dose 1 MG; Start 11/30/18 at 09:00 Lactulose (Enulose) 20 gm Q6 PO Last administered on 12/07/18 23:51; Admin Dose 20 GM; Start 11/30/18 at 12:00 Levothyroxine Sodium (Synthroid) 88 mcg BEFORE BREAKFAST PO Last administered on 12/07/18 06:44; Admin Dose 88 MCG; Start 12/01/18 at 07:00 Pantoprazole (Protonix Tab) 40 mg DAILY@0600 PO Last administered on 12/07/18 06:06; Admin Dose 40 MG; Start 11/30/18 at 09:00 Rifaximin (Xifaxan) 550 mg BID PO Last administered on 12/08/18 08:06; Admin Dose 550 MG; Start 11/30/18 at 11:00 Miscellaneous Information 1 cap WITH MEALS XX ; Start 11/30/18 at 12:00; Status Hold Heparin Sodium (Porcine) (Heparin (1000 Units/ml)) 4,000 unit AFTER DIALYSIS CATHETER Last administered on 12/05/18 12:29; Admin Dose 4,000 UNIT; Start 11/30/18 at 10:00 Albumin Human 100 ml @ 100 mls/hr WITH DIALYSIS PRN IV SBP <90 DURING DIALYSIS Last administered on 12/05/18 09:31; Admin Dose 100 MLS/HR; Start 11/30/18 at 10:00 Sodium Chloride (NS) -To prime the dialy... DIRECTED FOR HD PRN IV HD; Start 11/30/18 at 10:00 Insulin Aspart (Novolog Insulin Pen) NOVOLOG *MILD* ALGORITHM WITH MEALS BEDTIME SC Last administered on 12/08/18 08:14; Admin Dose 5 UNIT; Start 11/30/18 at 12:00 Miscellaneous Information 1 ea NOTE XX ; Start 11/30/18 at 10:00 Glucose (Glutose) 15 gm Q15M PRN PO DECREASED GLUCOSE; Start 11/30/18 at 10:00 Glucose (Glutose) 22.5 gm Q15M PRN PO DECREASED GLUCOSE; Start 11/30/18 at 10:00 Dextrose (D50w Syringe) 25 ml Q15M PRN IV DECREASED GLUCOSE Last administered on 12/02/18at 07:07; Admin Dose 25 ML; Start 11/30/18 at 10:00 Dextrose (D50w Syringe) 50 ml Q15M PRN IV DECREASED GLUCOSE Last administered on 12/01/18at 07:58; Admin Dose 50 ML; Start 11/30/18 at 10:00 Glucagon (Glucagen) 1 mg Q15M PRN IM DECREASED GLUCOSE; Start 11/30/18 at 10:00 Glucose (Glutose) 15 gm Q15M PRN BUCCAL DECREASED GLUCOSE; Start 11/30/18 at 10 :00 Senna (Senokot) 2 tab BID PO Last administered on 12/07/18at 20:33; Admin Dose 2 TAB; Start 12/01/18 at 21:00 Hydromorphone HCl (Dilaudid) 2 mg Q3H PRN PO BREAKTHROUGH PAIN Last administered on 12/07/18at 09:11; Admin Dose 2 MG; Start 12/01/18 at 15:30 Ceftriaxone Sodium 50 ml @ 100 mls/hr Q24H IVPB Last administered on 12/07/18at 14:55; Admin Dose 100 MLS/HR; Start 12/02/18 at 15:00 MECCA RENAE MD Dec 08, 2018 10:47
[2018-12-08] MEDS ORDERED: SOD CHLORIDE 0.9% 250 ML IV* ONE (11:20)
--- NOTE | 2018-12-08 11:35 | PN ---
Date/Time of Note Date/Time of Note DATE: 12/08/18 TIME: 11:30 Assessment/Plan VTE Prophylaxis Risk score (from Nsg)>0 risk: 6 SCD applied (from Nsg): Yes Pharmacological prophylaxis: NA/contraindicated Pharm contraindication: thrombocytopenia Lines/Catheters IV Catheter Type (from Nrsg): Saline Lock Urinary Cath still in place: No Assessment/Plan Hospital Course S: Tolerating diet per nursing staff, waiting for dialysis later today O: VS -see below PE: GENERAL: lying in bed, lethargic. HEENT: Pupils equal, round, react to light. Extraocular muscles intact. NECK: Supple, no thyromegaly. LUNGS: Clear to auscultation bilaterally. CARDIOVASCULAR: S1, S2 heard. No rubs or gallops. ABDOMEN: Soft, mildly tender to palpation bilateral lower quadrants. Some positive distention. Hypoactive bowel sounds. MUSCULOSKELETAL: No lower extremity edema bilaterally. Assessment/Plan: 53-year-old female coming with lethargy and abdominal pain. Prior history of cirrhosis, diabetes, hypothyroidism, end-stage renal disease. Found to have SBP #Abdominal pain -likely secondary to SBP- paracentesis 12/02/18 with >250 PMNs- Ascites culture growing fluoroquinolone-resistant E Coli. Cont ceftriaxone q24h (12/02-12/08) and albumin on day 1 and day 3. - CT shows possible splenic infarct with embolization coil. According to [facility] resident this was done in 2012. Unlikely it is contributing to pain. -For now cont lactulose. Goal 3-4 bowel movements per day. . - Pain control with PO dilaudid. No morphine in ESRD. -Has completed antibiotics Rocephin at least 5 days, will DC now secondary to thrombocytopenia #Diabetes -sugars more elevated in the last 48 hours, A1c equals 8.6 -Continue sliding scale insulin, add aspart with meals and Lantus #Hypothyroid - Cont levothyroxine. #ESRD - Renal consulted, follow-up their recommendations regarding dialysis #Cirrhosis - For HE, continue lactulose and rifaximin. # Thrombocytopenia -no signs of bleeding, but platelets are lower today at 21,000 -We will go ahead and transfuse 1 unit platelets, follow-up CBC in a.m. DVT: SCDs GI: Protonix Dispo: Patient very deconditioned and still with encephalopathy with mental slowing. Will need to discuss with daughter how close she is to baseline. Likely will benefit from short-term SNF prior to discharge -we will consult case management. Result Diagram: 12/07/18 0552 12/07/18 0552 Results 24hrs Laboratory Tests Test 12/07/18 11:36 12/07/18 17:11 12/07/18 20:21 12/08/18 02:15 Bedside Glucose 206 205 271 H 286 H Test 12/08/18 07:42 Bedside Glucose 315 H Exam/Review of Systems Exam Vitals Vital Signs Date Temp Pulse Resp B/P (MAP) Pulse Ox O2 O2 Flow FiO2 Time Delivery Rate 12/08/18 98.2 75 19 105/61 96 11:19 (76) 12/07/18 Room Air 15:16 Intake and Output 12/07/18 12/07/18 12/08/18 1414:59 22:59 06:59 IntakeIntake Total 680 ml 400 ml BalanceBalance 680 ml 400 ml Results Results 24hrs Laboratory Tests Test 12/07/18 11:36 12/07/18 17:11 12/07/18 20:21 12/08/18 02:15 Bedside Glucose 206 205 271 H 286 H Test 12/08/18 07:42 Bedside Glucose 315 H Medications Medication Current Medications IV Flush (NS 3 ml) 3 ml PER PROTOCOL IV ; Start 11/30/18 at 08:30 Ondansetron HCl (Zofran Inj) 4 mg Q6H PRN IV NAUSEA/VOMITING; Start 11/30/18 at 08:30 Acetaminophen (Tylenol Tab) 650 mg Q6H PRN PO .PAIN 1-3 OR TEMP Last administered on 12/07/18at 20:33; Admin Dose 650 MG; Start 11/30/18 at 08:30 Acetaminophen/ Hydrocodone Bitart ([place] (5/325)) 1 tab Q6H PRN PO .MOD PAIN 4- 6 Last administered on 12/08/18at 08:06; Admin Dose 1 TAB; Start 11/30/18 at 08:30 Docusate Sodium (Colace) 100 mg Q12H PRN PO .CONSTIPATION; Start 11/30/18 at 08:30 Magnesium Hydroxide (Milk Of Mag) 30 ml DAILY PRN PO .CONSTIPATION; Start 11/30/18 at 08:30 Albuterol/ Ipratropium (Duoneb) 3 ml Q4H RESP THERAPY PRN HHN SHORTNESS OF BREATH Last administered on 12/02/18 16:09; Admin Dose 3 ML; Start 11/30/18 at 08:30 Hydralazine HCl (Apresoline) 10 mg Q6H PRN IV ELEVATED BLOOD PRESSURE; Start 11/30/18 at 08:30 Nitroglycerin (Nitroglycerin (Sl Tab) 0.4 Mg) 1 tab Q5M PRN SL ANGINA; Start 11/30/18 at 08:30 Folic Acid (Folic Acid) 1 mg DAILY PO Last administered on 12/08/18 08:06; Admin Dose 1 MG; Start 11/30/18 at 09:00 Lactulose (Enulose) 20 gm Q6 PO Last administered on 12/07/18 23:51; Admin Dose 20 GM; Start 11/30/18 at 12:00 Levothyroxine Sodium (Synthroid) 88 mcg BEFORE BREAKFAST PO Last administered on 12/07/18 06:44; Admin Dose 88 MCG; Start 12/01/18 at 07:00 Pantoprazole (Protonix Tab) 40 mg DAILY@0600 PO Last administered on 12/07/18 06:06; Admin Dose 40 MG; Start 11/30/18 at 09:00 Rifaximin (Xifaxan) 550 mg BID PO Last administered on 12/08/18 08:06; Admin Dose 550 MG; Start 11/30/18 at 11:00 Miscellaneous Information 1 cap WITH MEALS XX ; Start 11/30/18 at 12:00; Status Hold Heparin Sodium (Porcine) (Heparin (1000 Units/ml)) 4,000 unit AFTER DIALYSIS CATHETER Last administered on 12/05/18 12:29; Admin Dose 4,000 UNIT; Start 11/30/18 at 10:00 Albumin Human 100 ml @ 100 mls/hr WITH DIALYSIS PRN IV SBP <90 DURING DIALYSIS Last administered on 12/05/18 09:31; Admin Dose 100 MLS/HR; Start 11/30/18 at 10:00 Sodium Chloride (NS) -To prime the dialy... DIRECTED FOR HD PRN IV HD; Start 11/30/18 at 10:00 Insulin Aspart (Novolog Insulin Pen) NOVOLOG *MILD* ALGORITHM WITH MEALS BEDTIME SC Last administered on 3/11/19at 08:14; Admin Dose 5 UNIT; Start 11/30/18 at 12:00 Miscellaneous Information 1 ea NOTE XX ; Start 11/30/18 at 10:00 Glucose (Glutose) 15 gm Q15M PRN PO DECREASED GLUCOSE; Start 11/30/18 at 10:00 Glucose (Glutose) 22.5 gm Q15M PRN PO DECREASED GLUCOSE; Start 11/30/18 at 10:00 Dextrose (D50w Syringe) 25 ml Q15M PRN IV DECREASED GLUCOSE Last administered on 12/02/18at 07:07; Admin Dose 25 ML; Start 11/30/18 at 10:00 Dextrose (D50w Syringe) 50 ml Q15M PRN IV DECREASED GLUCOSE Last administered on 12/01/18at 07:58; Admin Dose 50 ML; Start 11/30/18 at 10:00 Glucagon (Glucagen) 1 mg Q15M PRN IM DECREASED GLUCOSE; Start 11/30/18 at 10:00 Glucose (Glutose) 15 gm Q15M PRN BUCCAL DECREASED GLUCOSE; Start 11/30/18 at 10:00 Senna (Senokot) 2 tab BID PO Last administered on 12/07/18at 20:33; Admin Dose 2 TAB; Start 12/01/18 at 21:00 Hydromorphone HCl (Dilaudid) 2 mg Q8H PRN PO BREAKTHROUGH PAIN; Start 12/08/18 at 15:30 SIRI DISLA Dec 08, 2018 11:35
[2018-12-08] MEDS ORDERED: HYDROmorphONE 2 MG TAB PO PRN (15:30)
[2018-12-08] MEDS: ALBUMIN HUMAN 25% 100 ML IV PRN ×2 (16:44→18:19)
[2018-12-08] MEDS: HEPARIN 1000 UNITS/ML 10 ML INJ CATHETER SCH (19:47)
[2018-12-08] MEDS: INSULIN GLARGINE [LANTus] (100 UNITS/ML) SYG SC SCH (22:59)
[2018-12-09] VITALS (12 sets, daily range): BP systolic 80–100; BP diastolic 47–56; PULSE 59–91; RESP 18–19
[2018-12-09] MEDS: LACTULOSE 30ML CUP PO SCH ×5 (00:24→17:25)
[2018-12-09] MEDS: PANTOPRAZOLE (EC) 40 MG TAB PO SCH (05:54)
[2018-12-09] MEDS: HYDROCODONE/APAP (5/325) TAB PO PRN (05:54)
[2018-12-09] MEDS: LEVOTHYROXINE 88 MCG TAB PO SCH (07:02)
[2018-12-09] MEDS: INSULIN ASPART [NOVOLOG] 3 ML PEN SC SCH ×7 (07:55→21:23)
[2018-12-09] MEDS: RIFAXIMIN 550 MG TAB PO SCH ×2 (08:16→21:29)
[2018-12-09] MEDS: FOLIC ACID 1 MG TAB PO SCH (08:16)
[2018-12-09] MEDS: SENNA TAB PO SCH ×2 (08:16→21:29)
--- NOTE | 2018-12-09 09:48 | CONS ---
Assessment/Plan Assessment/Plan Assessment/Plan (Daily) 1. ESRD on HD - 2. acute abdominal pain 3. H/o Hypertension 4. H/o DM II 5. H/o Liver cirrhosis Plan: Hb 7.3- PRBC ordered, will plan to transfuse it tomorrow with HD , Hd ordered for saturday, will keep pt on MWF schedule s/p Paracentesis 3.1 L removed on 12/02/18 will follow up Consultation Date/Type/Reason Admit Date/Time Dec 01, 2018 at 14:56 Initial Consult Date 11/30/18 Type of Consult NEPHROLOGY Requesting Provider: SIRI DISLA Date/Time of Note DATE: 12/09/18 TIME: 09:48 24 HR Interval Summary Free Text/Dictation Hb dropped to 7.3,afebrile, Bp stable Exam/Review of Systems Exam Vitals Vital Signs Date Temp Pulse Resp B/P (MAP) Pulse Ox O2 O2 Flow FiO2 Time Delivery Rate 12/09/18 91 08:00 12/09/18 98.2 19 100/56 96 07:33 (71) 12/09/18 2.0 04:55 12/08/18 Nasal 16:25 Cannula Intake and Output 12/08/18 12/08/18 12/09/18 1515:00 23:00 07:00 IntakeIntake Total 400 ml 200 ml OutputOutput Total 1700 ml BalanceBalance -1300 ml 200 ml Results Result Diagram: 12/09/18 0547 12/09/18 0547 Results 24hrs Laboratory Tests Test 12/08/18 11:59 12/08/18 17:03 12/08/18 20:32 12/09/18 05:47 Bedside Glucose 259 H 138 150 White Blood Count 5.9 Red Blood Count 2.10 L Hemoglobin 7.3 L Hematocrit 20.7 L Mean Corpuscular 98.6 Volume Mean Corpuscular 34.8 H Hemoglobin Mean Corpuscular 35.3 Hemoglobin Concent Red Cell 17.3 H Distribution Width Platelet Count 46 #L Mean Platelet Volume 11.1 H Immature 0.500 H Granulocytes % Neutrophils % 64.4 Lymphocytes % 19.0 Monocytes % 11.2 H Eosinophils % 4.6 Basophils % 0.3 Nucleated Red Blood 0.0 Cells % Immature 0.030 Granulocytes # Neutrophils # 3.8 Lymphocytes # 1.1 Monocytes # 0.7 Eosinophils # 0.3 Basophils # 0.0 Nucleated Red Blood 0.0 Cells # Sodium Level 138 Potassium Level 3.6 Chloride Level 100 Carbon Dioxide Level 28 Anion Gap 10 Blood Urea Nitrogen 17 # Creatinine 3.54 #H Est Glomerular 13 L Filtrat Rate mL/min Glucose Level 253 H Calcium Level 8.7 Phosphorus Level 2.2 L Magnesium Level 2.2 Ammonia 15 # Test 12/09/18 07:33 Bedside Glucose 255 H Medications Medication Current Medications IV Flush (NS 3 ml) 3 ml PER PROTOCOL IV ; Start 11/30/18 at 08:30 Ondansetron HCl (Zofran Inj) 4 mg Q6H PRN IV NAUSEA/VOMITING; Start 11/30/18 at 08:30 Acetaminophen (Tylenol Tab) 650 mg Q6H PRN PO .PAIN 1-3 OR TEMP Last administered on 12/07/18at 20:33; Admin Dose 650 MG; Start 11/30/18 at 08:30 Acetaminophen/ Hydrocodone Bitart ([place] (5/325)) 1 tab Q6H PRN PO .MOD PAIN 4- 6 Last administered on 12/09/18at 05:54; Admin Dose 1 TAB; Start 11/30/18 at 08:30 Docusate Sodium (Colace) 100 mg Q12H PRN PO .CONSTIPATION; Start 11/30/18 at 08:30 Magnesium Hydroxide (Milk Of Mag) 30 ml DAILY PRN PO .CONSTIPATION; Start 11/30/18 at 08:30 Albuterol/ Ipratropium (Duoneb) 3 ml Q4H RESP THERAPY PRN HHN SHORTNESS OF BREATH Last administered on 12/02/18at 16:09; Admin Dose 3 ML; Start 11/30/18 at 08:30 Hydralazine HCl (Apresoline) 10 mg Q6H PRN IV ELEVATED BLOOD PRESSURE; Start 11/30/18 at 08:30 Nitroglycerin (Nitroglycerin (Sl Tab) 0.4 Mg) 1 tab Q5M PRN SL ANGINA; Start 11/30/18 at 08:30 Folic Acid (Folic Acid) 1 mg DAILY PO Last administered on 12/09/18at 08:16; Admin Dose 1 MG; Start 11/30/18 at 09:00 Lactulose (Enulose) 20 gm Q6 PO Last administered on 12/07/18 23:51; Admin Dose 20 GM; Start 11/30/18 at 12:00 Levothyroxine Sodium (Synthroid) 88 mcg BEFORE BREAKFAST PO Last administered on 12/09/18 07:02; Admin Dose 88 MCG; Start 12/01/18 at 07:00 Pantoprazole (Protonix Tab) 40 mg DAILY@0600 PO Last administered on 12/09/18 05:54; Admin Dose 40 MG; Start 11/30/18 at 09:00 Rifaximin (Xifaxan) 550 mg BID PO Last administered on 12/09/18 08:16; Admin Dose 550 MG; Start 11/30/18 at 11:00 Miscellaneous Information 1 cap WITH MEALS XX ; Start 11/30/18 at 12:00; Status Hold Heparin Sodium (Porcine) (Heparin (1000 Units/ml)) 4,000 unit AFTER DIALYSIS CATHETER Last administered on 12/08/18 19:47; Admin Dose 4,000 UNIT; Start 11/30/18 at 10:00 Albumin Human 100 ml @ 100 mls/hr WITH DIALYSIS PRN IV SBP <90 DURING DIALYSIS Last administered on 12/08/18 18:19; Admin Dose 100 MLS/HR; Start 11/30/18 at 10:00 Sodium Chloride (NS) -To prime the dialy... DIRECTED FOR HD PRN IV HD; Start 11/30/18 at 10:00 Insulin Aspart (Novolog Insulin Pen) NOVOLOG *MILD* ALGORITHM WITH MEALS BEDTIME SC Last administered on 12/09/18 07:55; Admin Dose 3 UNIT; Start 11/30/18 at 12:00 Miscellaneous Information 1 ea NOTE XX ; Start 11/30/18 at 10:00 Glucose (Glutose) 15 gm Q15M PRN PO DECREASED GLUCOSE; Start 11/30/18 at 10:00 Glucose (Glutose) 22.5 gm Q15M PRN PO DECREASED GLUCOSE; Start 11/30/18 at 10:00 Dextrose (D50w Syringe) 25 ml Q15M PRN IV DECREASED GLUCOSE Last administered on 12/02/18 07:07; Admin Dose 25 ML; Start 11/30/18 at 10:00 Dextrose (D50w Syringe) 50 ml Q15M PRN IV DECREASED GLUCOSE Last administered on 3/4/19at 07:58; Admin Dose 50 ML; Start 11/30/18 at 10:00 Glucagon (Glucagen) 1 mg Q15M PRN IM DECREASED GLUCOSE; Start 11/30/18 at 10:00 Glucose (Glutose) 15 gm Q15M PRN BUCCAL DECREASED GLUCOSE; Start 11/30/18 at 10: 00 Senna (Senokot) 2 tab BID PO Last administered on 12/07/18at 20:33; Admin Dose 2 TAB; Start 12/01/18 at 21:00 Hydromorphone HCl (Dilaudid) 2 mg Q8H PRN PO BREAKTHROUGH PAIN; Start 12/08/18 at 15:30 Insulin Glargine (Lantus) 16 units DAILY@2000 SC Last administered on 12/08/18at 22:59; Admin Dose 16 UNITS; Start 12/08/18 at 20:00 Insulin Aspart (Novolog Insulin Pen) 6 unit WITH MEALS SC Last administered on 12/09/18at 07:55; Admin Dose 6 UNIT; Start 12/08/18 at 12:00 MECCA RENAE MD Dec 09, 2018 09:48
--- NOTE | 2018-12-09 10:59 | PN ---
Date/Time of Note Date/Time of Note DATE: 12/09/18 TIME: 10:50 Assessment/Plan VTE Prophylaxis Risk score (from Nsg)>0 risk: 3 SCD applied (from Nsg): Yes Pharmacological prophylaxis: other Lines/Catheters IV Catheter Type (from Nrsg): Saline Lock Urinary Cath still in place: No Assessment/Plan Hospital Course S: Patient had dialysis yesterday, received platelet transfusion yesterday as well. O: VS -see below PE: GENERAL: lying in bed, lethargic. HEENT: Pupils equal, round, react to light. Extraocular muscles intact. NECK: Supple, no thyromegaly. LUNGS: Clear to auscultation bilaterally. CARDIOVASCULAR: S1, S2 heard. No rubs or gallops. ABDOMEN: Soft, mildly tender to palpation bilateral lower quadrants. Some positive distention. Hypoactive bowel sounds. MUSCULOSKELETAL: No lower extremity edema bilaterally. Assessment/Plan: 53-year-old female coming with lethargy and abdominal pain. Prior history of cirrhosis, diabetes, hypothyroidism, end-stage renal disease. Found to have SBP #Abdominal pain -likely secondary to SBP- paracentesis 12/02/18 with >250 PMNs- Ascites culture growing fluoroquinolone-resistant E Coli. Has now completed treatment with ceftriaxone q24h (12/02-12/08) and albumin on day 1 and day 3. - CT shows possible splenic infarct with embolization coil. According to [facility] resident this was done in 2012. Unlikely it is contributing to pain. - For now cont lactulose. Goal 3-4 bowel movements per day. - Pain control with PO dilaudid. No morphine in ESRD. #Diabetes -sugars in the high normal range, A1c equals 8.6 -Continue sliding scale insulin, aspart with meals and Lantus #Hypothyroid - Cont levothyroxine. #ESRD - Renal consulted, follow-up their recommendations regarding dialysis #Cirrhosis -Ammonia level stable, continue lactulose and rifaximin. # Thrombocytopenia -platelet levels improved 46,000 today after 1 unit of platelets given yesterday, no signs of bleeding. -Monitor for now DVT: SCDs GI: Protonix Dispo: Patient very deconditioned and still with encephalopathy with mental slowing. Likely will benefit from short-term SNF prior to discharge -have consulted case management for placement. Result Diagram: 12/09/18 0598 12/09/18 0547 Results 24hrs Laboratory Tests Test 12/08/18 11:59 12/08/18 17:03 12/08/18 20:32 12/09/18 05:47 Bedside Glucose 259 H 138 150 White Blood Count 5.9 Red Blood Count 2.10 L Hemoglobin 7.3 L Hematocrit 20.7 L Mean Corpuscular 98.6 Volume Mean Corpuscular 34.8 H Hemoglobin Mean Corpuscular 35.3 Hemoglobin Concent Red Cell 17.3 H Distribution Width Platelet Count 46 #L Mean Platelet Volume 11.1 H Immature 0.500 H Granulocytes % Neutrophils % 64.4 Lymphocytes % 19.0 Monocytes % 11.2 H Eosinophils % 4.6 Basophils % 0.3 Nucleated Red Blood 0.0 Cells % Immature 0.030 Granulocytes # Neutrophils # 3.8 Lymphocytes # 1.1 Monocytes # 0.7 Eosinophils # 0.3 Basophils # 0.0 Nucleated Red Blood 0.0 Cells # Sodium Level 138 Potassium Level 3.6 Chloride Level 100 Carbon Dioxide Level 28 Anion Gap 10 Blood Urea Nitrogen 17 # Creatinine 3.54 #H Est Glomerular 13 L Filtrat Rate mL/min Glucose Level 253 H Calcium Level 8.7 Phosphorus Level 2.2 L Magnesium Level 2.2 Ammonia 15 # Test 12/09/18 07:33 Bedside Glucose 255 H Exam/Review of Systems Exam Vitals Vital Signs Date Temp Pulse Resp B/P (MAP) Pulse Ox O2 O2 Flow FiO2 Time Delivery Rate 12/09/18 91 08:00 12/09/18 98.2 19 100/56 96 07:33 (71) 12/09/18 2.0 04:55 12/08/18 Nasal 16:25 Cannula Intake and Output 12/08/18 12/08/18 12/09/18 1515:00 23:00 07:00 IntakeIntake Total 400 ml 200 ml OutputOutput Total 1700 ml BalanceBalance -1300 ml 200 ml Results Results 24hrs Laboratory Tests Test 12/08/18 11:59 12/08/18 17:03 12/08/18 20:32 12/09/18 05:47 Bedside Glucose 259 H 138 150 White Blood Count 5.9 Red Blood Count 2.10 L Hemoglobin 7.3 L Hematocrit 20.7 L Mean Corpuscular 98.6 Volume Mean Corpuscular 34.8 H Hemoglobin Mean Corpuscular 35.3 Hemoglobin Concent Red Cell 17.3 H Distribution Width Platelet Count 46 #L Mean Platelet Volume 11.1 H Immature 0.500 H Granulocytes % Neutrophils % 64.4 Lymphocytes % 19.0 Monocytes % 11.2 H Eosinophils % 4.6 Basophils % 0.3 Nucleated Red Blood 0.0 Cells % Immature 0.030 Granulocytes # Neutrophils # 3.8 Lymphocytes # 1.1 Monocytes # 0.7 Eosinophils # 0.3 Basophils # 0.0 Nucleated Red Blood 0.0 Cells # Sodium Level 138 Potassium Level 3.6 Chloride Level 100 Carbon Dioxide Level 28 Anion Gap 10 Blood Urea Nitrogen 17 # Creatinine 3.54 #H Est Glomerular 13 L Filtrat Rate mL/min Glucose Level 253 H Calcium Level 8.7 Phosphorus Level 2.2 L Magnesium Level 2.2 Ammonia 15 # Test 12/09/18 07:33 Bedside Glucose 255 H Medications Medication Current Medications IV Flush (NS 3 ml) 3 ml PER PROTOCOL IV ; Start 11/30/18 at 08:30 Ondansetron HCl (Zofran Inj) 4 mg Q6H PRN IV NAUSEA/VOMITING; Start 11/30/18 at 08:30 Acetaminophen (Tylenol Tab) 650 mg Q6H PRN PO .PAIN 1-3 OR TEMP Last administered on 12/07/18at 20:33; Admin Dose 650 MG; Start 11/30/18 at 08:30 Acetaminophen/ Hydrocodone Bitart ([place] (5/325)) 1 tab Q6H PRN PO .MOD PAIN 4- 6 Last administered on 12/09/18at 05:54; Admin Dose 1 TAB; Start 11/30/18 at 08:30 Docusate Sodium (Colace) 100 mg Q12H PRN PO .CONSTIPATION; Start 11/30/18 at 08:30 Magnesium Hydroxide (Milk Of Mag) 30 ml DAILY PRN PO .CONSTIPATION; Start 11/30/18 at 08:30 Albuterol/ Ipratropium (Duoneb) 3 ml Q4H RESP THERAPY PRN HHN SHORTNESS OF BREATH Last administered on 12/02/18at 16:09; Admin Dose 3 ML; Start 11/30/18 at 08:30 Hydralazine HCl (Apresoline) 10 mg Q6H PRN IV ELEVATED BLOOD PRESSURE; Start 11/30/18 at 08:30 Nitroglycerin (Nitroglycerin (Sl Tab) 0.4 Mg) 1 tab Q5M PRN SL ANGINA; Start 11/30/18 at 08:30 Folic Acid (Folic Acid) 1 mg DAILY PO Last administered on 12/09/18 08:16; Admin Dose 1 MG; Start 11/30/18 at 09:00 Lactulose (Enulose) 20 gm Q6 PO Last administered on 12/07/18 23:51; Admin Dos e 20 GM; Start 11/30/18 at 12:00 Levothyroxine Sodium (Synthroid) 88 mcg BEFORE BREAKFAST PO Last administered on 12/09/18 07:02; Admin Dose 88 MCG; Start 12/01/18 at 07:00 Pantoprazole (Protonix Tab) 40 mg DAILY@0600 PO Last administered on 12/09/18 05:54; Admin Dose 40 MG; Start 11/30/18 at 09:00 Rifaximin (Xifaxan) 550 mg BID PO Last administered on 12/09/18 08:16; Admin Dose 550 MG; Start 11/30/18 at 11:00 Miscellaneous Information 1 cap WITH MEALS XX ; Start 11/30/18 at 12:00; Status Hold Heparin Sodium (Porcine) (Heparin (1000 Units/ml)) 4,000 unit AFTER DIALYSIS CATHETER Last administered on 12/08/18 19:47; Admin Dose 4,000 UNIT; Start 11/30/18 at 10:00 Albumin Human 100 ml @ 100 mls/hr WITH DIALYSIS PRN IV SBP <90 DURING DIALYSIS Last administered on 12/08/18 18:19; Admin Dose 100 MLS/HR; Start 11/30/18 at 10:00 Sodium Chloride (NS) -To prime the dialy... DIRECTED FOR HD PRN IV HD; Start 11/30/18 at 10:00 Insulin Aspart (Novolog Insulin Pen) NOVOLOG *MILD* ALGORITHM WITH MEALS BEDTIME SC Last administered on 12/09/18 07:55; Admin Dose 3 UNIT; Start 11/30/18 at 12:00 Miscellaneous Information 1 ea NOTE XX ; Start 11/30/18 at 10:00 Glucose (Glutose) 15 gm Q15M PRN PO DECREASED GLUCOSE; Start 11/30/18 at 10:00 Glucose (Glutose) 22.5 gm Q15M PRN PO DECREASED GLUCOSE; Start 11/30/18 at 10:00 Dextrose (D50w Syringe) 25 ml Q15M PRN IV DECREASED GLUCOSE Last administered on 12/02/18 07:07; Admin Dose 25 ML; Start 11/30/18 at 10:00 Dextrose (D50w Syringe) 50 ml Q15M PRN IV DECREASED GLUCOSE Last administered on 12/01/18 07:58; Admin Dose 50 ML; Start 11/30/18 at 10:00 Glucagon (Glucagen) 1 mg Q15M PRN IM DECREASED GLUCOSE; Start 11/30/18 at 10:00 Glucose (Glutose) 15 gm Q15M PRN BUCCAL DECREASED GLUCOSE; Start 11/30/18 at 10:00 Senna (Senokot) 2 tab BID PO Last administered on 12/07/18at 20:33; Admin Dose 2 TAB; Start 12/01/18 at 21:00 Hydromorphone HCl (Dilaudid) 2 mg Q8H PRN PO BREAKTHROUGH PAIN; Start 12/08/18 at 15:30 Insulin Glargine (Lantus) 16 units DAILY@2000 SC Last administered on 12/08/18at 22:59; Admin Dose 16 UNITS; Start 12/08/18 at 20:00 Insulin Aspart (Novolog Insulin Pen) 6 unit WITH MEALS SC Last administered on 12/09/18 07:55; Admin Dose 6 UNIT; Start 12/08/18 at 12:00 Potassium Phosphate 20 meq/ Sodium Chloride 254.5455 ml @ 63.636 m... ONCE ONCE IVPB ; Start 12/09/18 at 11:30; Stop 12/09/18 at 15:29 SIRI DISLA 12, 2019 10:59
[2018-12-09] MEDS ORDERED: POTASSIUM PHOSPHATE 20 MEQ in SOD CHLORIDE 0.9% 250 ML IVPB ONE (11:30)
[2018-12-09] MEDS ORDERED: SOD CHLORIDE 0.9% 250 ML IV* ONE (12:14)
[2018-12-09] MEDS: INSULIN GLARGINE [LANTus] (100 UNITS/ML) SYG SC SCH (21:23)
[2018-12-10] VITALS (28 sets, daily range): BP systolic 82–127; BP diastolic 51–73; PULSE 42–89; RESP 17–20
[2018-12-10] MEDS: LACTULOSE 30ML CUP PO SCH ×4 (00:23→18:00)
[2018-12-10] MEDS ORDERED: INSULIN ASPART [NOVOLOG] 3 ML PEN SC ONE (03:30)
[2018-12-10] MEDS: PANTOPRAZOLE (EC) 40 MG TAB PO SCH (06:00)
[2018-12-10] MEDS: LEVOTHYROXINE 88 MCG TAB PO SCH (06:03)
[2018-12-10] MEDS: INSULIN ASPART [NOVOLOG] 3 ML PEN SC SCH ×7 (08:18→21:33)
[2018-12-10] MEDS: RIFAXIMIN 550 MG TAB PO SCH ×2 (08:20→21:05)
[2018-12-10] MEDS: FOLIC ACID 1 MG TAB PO SCH (08:20)
[2018-12-10] MEDS: SENNA TAB PO SCH ×2 (08:23→21:00)
--- NOTE | 2018-12-10 10:44 | PN ---
Date/Time of Note Date/Time of Note DATE: 12/10/18 TIME: 10:40 Assessment/Plan VTE Prophylaxis Risk score (from Nsg)>0 risk: 6 SCD applied (from Nsg): Yes Pharmacological prophylaxis: other Lines/Catheters IV Catheter Type (from Nrsg): Saline Lock Urinary Cath still in place: No Assessment/Plan Hospital Course S: Patient presently getting dialysis and receiving second unit of PRBC tr ansfusion. No acute events overnight. O: VS -see below PE: GENERAL: lying in bed, lethargic. HEENT: Pupils equal, round, react to light. Extraocular muscles intact. NECK: Supple, no thyromegaly. LUNGS: Clear to auscultation bilaterally. CARDIOVASCULAR: S1, S2 heard. No rubs or gallops. ABDOMEN: Soft, mildly tender to palpation bilateral lower quadrants. Some positive distention. Hypoactive bowel sounds. MUSCULOSKELETAL: No lower extremity edema bilaterally. Assessment/Plan: 53-year-old female coming with lethargy and abdominal pain. Prior history of cirrhosis, diabetes, hypothyroidism, end-stage renal disease. Found to have SBP #Abdominal pain -likely secondary to SBP- paracentesis 12/02/18 with >250 PMNs- Ascites culture growing fluoroquinolone-resistant E Coli. Has now completed treatment with ceftriaxone q24h (12/02-12/08) and albumin on day 1 and day 3. - CT shows possible splenic infarct with embolization coil. According to [facility] resident this was done in 2012. Unlikely it is contributing to pain. - For now cont lactulose. Goal 3-4 bowel movements per day. - Pain control with PO dilaudid. No morphine in ESRD. #Diabetes -sugars in the high normal range, A1c equals 8.6 -Continue sliding scale insulin, aspart with meals and Lantus #Hypothyroid - Cont levothyroxine. #ESRD - Renal consulted, follow-up their recommendations regarding dialysis #Cirrhosis -Ammonia level stable, continue lactulose and rifaximin. # Thrombocytopenia -platelet levels improved after platelet transfusion given 2 days ago -Monitor for now -For the low hemoglobin and anemia, getting PRBC transfusion x2 today, follow-up post transfusion CBC tomorrow DVT: SCDs GI: Protonix Dispo: Patient very deconditioned and still with encephalopathy with mental slowing. Likely will benefit from short-term SNF prior to discharge - case management working on placement. Result Diagram: 12/10/18 0535 12/10/18 0535 Results 24hrs Laboratory Tests Test 12/09/18 11:09 12/09/18 11:37 12/09/18 16:53 12/09/18 21:17 Hemoglobin 7.3 L Hematocrit 20.4 L Bedside Glucose 186 88 233 H Test 12/10/18 03:06 12/10/18 05:35 12/10/18 08:14 Bedside Glucose 335 H 220 White Blood Count 6.6 Red Blood Count 2.09 L Hemoglobin 7.3 L Hematocrit 20.8 L Mean Corpuscular 99.5 Volume Mean Corpuscular 34.9 H Hemoglobin Mean Corpuscular 35.1 Hemoglobin Concent Red Cell 17.7 H Distribution Width Platelet Count 43 L Mean Platelet Volume 13.3 H Immature 0.500 H Granulocytes % Neutrophils % 60.7 Lymphocytes % 21.2 Monocytes % 12.9 H Eosinophils % 4.4 Basophils % 0.3 Nucleated Red Blood 0.0 Cells % Immature 0.030 Granulocytes # Neutrophils # 4.0 Lymphocytes # 1.4 Monocytes # 0.9 Eosinophils # 0.3 Basophils # 0.0 Nucleated Red Blood 0.0 Cells # Sodium Level 139 Potassium Level 3.5 Chloride Level 100 Carbon Dioxide Level 27 Anion Gap 12 Blood Urea Nitrogen 24 H Creatinine 4.96 #H Est Glomerular 9 L Filtrat Rate mL/min Glucose Level 228 H Calcium Level 8.6 Phosphorus Level 3.4 Magnesium Level 2.2 Exam/Review of Systems Exam Vitals Vital Signs Date Temp Pulse Resp B/P (MAP) Pulse Ox O2 O2 Flow FiO2 Time Delivery Rate 12/10/18 81 17 88/51 (63) 100 Nasal 2.0 10:14 Cannula 12/10/18 98.4 07:33 Intake and Output 12/09/18 12/09/18 12/10/18 1515:00 23:00 07:00 IntakeIntake Total 254.5455 ml 600 ml 618 ml BalanceBalance 254.5455 ml 600 ml 618 ml Results Results 24hrs Laboratory Tests Test 12/09/18 11:09 12/09/18 11:37 12/09/18 16:53 12/09/18 21:17 Hemoglobin 7.3 L Hematocrit 20.4 L Bedside Glucose 186 88 233 H Test 12/10/18 03:06 12/10/18 05:35 12/10/18 08:14 Bedside Glucose 335 H 220 White Blood Count 6.6 Red Blood Count 2.09 L Hemoglobin 7.3 L Hematocrit 20.8 L Mean Corpuscular 99.5 Volume Mean Corpuscular 34.9 H Hemoglobin Mean Corpuscular 35.1 Hemoglobin Concent Red Cell 17.7 H Distribution Width Platelet Count 43 L Mean Platelet Volume 13.3 H Immature 0.500 H Granulocytes % Neutrophils % 60.7 Lymphocytes % 21.2 Monocytes % 12.9 H Eosinophils % 4.4 Basophils % 0.3 Nucleated Red Blood 0.0 Cells % Immature 0.030 Granulocytes # Neutrophils # 4.0 Lymphocytes # 1.4 Monocytes # 0.9 Eosinophils # 0.3 Basophils # 0.0 Nucleated Red Blood 0.0 Cells # Sodium Level 139 Potassium Level 3.5 Chloride Level 100 Carbon Dioxide Level 27 Anion Gap 12 Blood Urea Nitrogen 24 H Creatinine 4.96 #H Est Glomerular 9 L Filtrat Rate mL/min Glucose Level 228 H Calcium Level 8.6 Phosphorus Level 3.4 Magnesium Level 2.2 Medications Medication Current Medications IV Flush (NS 3 ml) 3 ml PER PROTOCOL IV ; Start 11/30/18 at 08:30 Ondansetron HCl (Zofran Inj) 4 mg Q6H PRN IV NAUSEA/VOMITING; Start 11/30/18 at 08:30 Acetaminophen (Tylenol Tab) 650 mg Q6H PRN PO .PAIN 1-3 OR TEMP Last admin istered on 12/07/18at 20:33; Admin Dose 650 MG; Start 11/30/18 at 08:30 Acetaminophen/ Hydrocodone Bitart ([place] (5/325)) 1 tab Q6H PRN PO .MOD PAIN 4- 6 Last administered on 12/09/18at 05:54; Admin Dose 1 TAB; Start 11/30/18 at 08:30 Docusate Sodium (Colace) 100 mg Q12H PRN PO .CONSTIPATION; Start 11/30/18 at 08:30 Magnesium Hydroxide (Milk Of Mag) 30 ml DAILY PRN PO .CONSTIPATION; Start 11/30/18 at 08:30 Albuterol/ Ipratropium (Duoneb) 3 ml Q4H RESP THERAPY PRN HHN SHORTNESS OF BREATH Last administered on 12/02/18at 16:09; Admin Dose 3 ML; Start 11/30/18 at 08:30 Hydralazine HCl (Apresoline) 10 mg Q6H PRN IV ELEVATED BLOOD PRESSURE; Start 11/30/18 at 08:30 Nitroglycerin (Nitroglycerin (Sl Tab) 0.4 Mg) 1 tab Q5M PRN SL ANGINA; Start 11/30/18 at 08:30 Folic Acid (Folic Acid) 1 mg DAILY PO Last administered on 12/10/18 08:20; Admin Dose 1 MG; Start 11/30/18 at 09:00 Lactulose (Enulose) 20 gm Q6 PO Last administered on 12/10/18at 00:23; Admin Dose 20 GM; Start 11/30/18 at 12:00 Levothyroxine Sodium (Synthroid) 88 mcg BEFORE BREAKFAST PO Last administered on 12/10/18 06:03; Admin Dose 88 MCG; Start 12/01/18 at 07:00 Pantoprazole (Protonix Tab) 40 mg DAILY@0600 PO Last administered on 12/10/18 06:00; Admin Dose 40 MG; Start 11/30/18 at 09:00 Rifaximin (Xifaxan) 550 mg BID PO Last administered on 12/10/18 08:20; Admin Dose 550 MG; Start 11/30/18 at 11:00 Miscellaneous Information 1 cap WITH MEALS XX ; Start 11/30/18 at 12:00; Status Hold Heparin Sodium (Porcine) (Heparin (1000 Units/ml)) 4,000 unit AFTER DIALYSIS CATHETER Last administered on 12/08/18at 19:47; Admin Dose 4,000 UNIT; Start 11/30/18 at 10:00 Albumin Human 100 ml @ 100 mls/hr WITH DIALYSIS PRN IV SBP <90 DURING DIALYSIS Last administered on 12/08/18 18:19; Admin Dose 100 MLS/HR; Start 11/30/18 at 10:00 Sodium Chloride (NS) -To prime the dialy... DIRECTED FOR HD PRN IV HD; Start 11/30/18 at 10:00 Insulin Aspart (Novolog Insulin Pen) NOVOLOG *MILD* ALGORITHM WITH MEALS BEDTIME SC Last administered on 12/10/18 08:18; Admin Dose 2 UNIT; Start 11/30/18 at 12:00 Miscellaneous Information 1 ea NOTE XX ; Start 11/30/18 at 10:00 Glucose (Glutose) 15 gm Q15M PRN PO DECREASED GLUCOSE; Start 11/30/18 at 10:00 Glucose (Glutose) 22.5 gm Q15M PRN PO DECREASED GLUCOSE; Start 11/30/18 at 10:00 Dextrose (D50w Syringe) 25 ml Q15M PRN IV DECREASED GLUCOSE Last administered on 12/02/18at 07:07; Admin Dose 25 ML; Start 11/30/18 at 10:00 Dextrose (D50w Syringe) 50 ml Q15M PRN IV DECREASED GLUCOSE Last administered on 12/01/18at 07:58; Admin Dose 50 ML; Start 11/30/18 at 10:00 Glucagon (Glucagen) 1 mg Q15M PRN IM DECREASED GLUCOSE; Start 11/30/18 at 10:00 Glucose (Glutose) 15 gm Q15M PRN BUCCAL DECREASED GLUCOSE; Start 11/30/18 at 10:00 Senna (Senokot) 2 tab BID PO Last administered on 12/09/18at 21:29; Admin Dose 2 TAB; Start 12/01/18 at 21:00 Hydromorphone HCl (Dilaudid) 2 mg Q8H PRN PO BREAKTHROUGH PAIN; Start 12/08/18 at 15:30 Insulin Glargine (Lantus) 16 units DAILY@2000 SC Last administered on 12/09/18at 21:23; Admin Dose 16 UNITS; Start 12/08/18 at 20:00 Insulin Aspart (Novolog Insulin Pen) 6 unit WITH MEALS SC Last administered on 12/10/18at 08:18; Admin Dose 6 UNIT; Start 12/08/18 at 12:00 SIRI DISLA Dec 10, 2018 10:44
[2018-12-10] MEDS: HEPARIN 1000 UNITS/ML 10 ML INJ CATHETER SCH (12:10)
--- NOTE | 2018-12-10 12:24 | CONS ---
Assessment/Plan Assessment/Plan Assessment/Plan (Daily) 1. ESRD on HD - 2. acute abdominal pain 3. H/o Hypertension 4. H/o DM II 5. H/o Liver cirrhosis Plan: Hb 7.3- s/p 2 units PRBC transfusion today wtih HD, S/p HD today 800 cc removed, will keep pt on MWF schedule s/p Paracentesis 3.1 L removed on 12/02/18 will follow up Consultation Date/Type/Reason Admit Date/Time Dec 01, 2018 at 14:56 Initial Consult Date 11/30/18 Type of Consult NEPHROLOGY Requesting Provider: SIRI DISLA Date/Time of Note DATE: 12/10/18 TIME: 12:24 24 HR Interval Summary Free Text/Dictation s/p HD today 600 cc removed, BP stable,afebrile, Exam/Review of Systems Exam Vitals Vital Signs Date Temp Pulse Resp B/P (MAP) Pulse Ox O2 O2 Flow FiO2 Time Delivery Rate 12/10/18 71 12:00 12/10/18 98.7 18 106/64 95 11:21 (78) 12/10/18 Nasal 2.0 10:14 Cannula Intake and Output 12/09/18 12/09/18 12/10/18 1515:00 23:00 07:00 IntakeIntake Total 254.5455 ml 600 ml 618 ml BalanceBalance 254.5455 ml 600 ml 618 ml Results Result Diagram: 12/10/18 0535 12/10/18 0535 Results 24hrs Laboratory Tests Test 12/09/18 16:53 12/09/18 21:17 12/10/18 03:06 12/10/18 05:35 Bedside Glucose 88 233 H 335 H White Blood Count 6.6 Red Blood Count 2.09 L Hemoglobin 7.3 L Hematocrit 20.8 L Mean Corpuscular 99.5 Volume Mean Corpuscular 34.9 H Hemoglobin Mean Corpuscular 35.1 Hemoglobin Concent Red Cell 17.7 H Distribution Width Platelet Count 43 L Mean Platelet Volume 13.3 H Immature 0.500 H Granulocytes % Neutrophils % 60.7 Lymphocytes % 21.2 Monocytes % 12.9 H Eosinophils % 4.4 Basophils % 0.3 Nucleated Red Blood 0.0 Cells % Immature 0.030 Granulocytes # Neutrophils # 4.0 Lymphocytes # 1.4 Monocytes # 0.9 Eosinophils # 0.3 Basophils # 0.0 Nucleated Red Blood 0.0 Cells # Sodium Level 139 Potassium Level 3.5 Chloride Level 100 Carbon Dioxide Level 27 Anion Gap 12 Blood Urea Nitrogen 24 H Creatinine 4.96 #H Est Glomerular 9 L Filtrat Rate mL/min Glucose Level 228 H Calcium Level 8.6 Phosphorus Level 3.4 Magnesium Level 2.2 Test 12/10/18 08:14 12/10/18 11:56 Bedside Glucose 220 105 Medications Medication Current Medications IV Flush (NS 3 ml) 3 ml PER PROTOCOL IV ; Start 11/30/18 at 08:30 Ondansetron HCl (Zofran Inj) 4 mg Q6H PRN IV NAUSEA/VOMITING; Start 11/30/18 at 08:30 Acetaminophen (Tylenol Tab) 650 mg Q6H PRN PO .PAIN 1-3 OR TEMP Last administered on 12/07/18at 20:33; Admin Dose 650 MG; Start 11/30/18 at 08:30 Acetaminophen/ Hydrocodone Bitart ([place] (5/325)) 1 tab Q6H PRN PO .MOD PAIN 4- 6 Last administered on 12/09/18at 05:54; Admin Dose 1 TAB; Start 11/30/18 at 08:30 Docusate Sodium (Colace) 100 mg Q12H PRN PO .CONSTIPATION; Start 11/30/18 at 08:30 Magnesium Hydroxide (Milk Of Mag) 30 ml DAILY PRN PO .CONSTIPATION; Start 11/30/18 at 08:30 Albuterol/ Ipratropium (Duoneb) 3 ml Q4H RESP THERAPY PRN HHN SHORTNESS OF BREATH Last administered on 12/02/18at 16:09; Admin Dose 3 ML; Start 11/30/18 at 08:30 Hydralazine HCl (Apresoline) 10 mg Q6H PRN IV ELEVATED BLOOD PRESSURE; Start 11/30/18 at 08:30 Nitroglycerin (Nitroglycerin (Sl Tab) 0.4 Mg) 1 tab Q5M PRN SL ANGINA; Start 11/30/18 at 08:30 Folic Acid (Folic Acid) 1 mg DAILY PO Last administered on 12/10/18at 08:20; Admin Dose 1 MG; Start 11/30/18 at 09:00 Lactulose (Enulose) 20 gm Q6 PO Last administered on 12/10/18 00:23; Admin Dose 20 GM; Start 11/30/18 at 12:00 Levothyroxine Sodium (Synthroid) 88 mcg BEFORE BREAKFAST PO Last administered on 12/10/18 06:03; Admin Dose 88 MCG; Start 12/01/18 at 07:00 Pantoprazole (Protonix Tab) 40 mg DAILY@0600 PO Last administered on 12/10/18 06:00; Admin Dose 40 MG; Start 11/30/18 at 09:00 Rifaximin (Xifaxan) 550 mg BID PO Last administered on 12/10/18 08:20; Admin Dose 550 MG; Start 11/30/18 at 11:00 Miscellaneous Information 1 cap WITH MEALS XX ; Start 11/30/18 at 12:00; Status Hold Heparin Sodium (Porcine) (Heparin (1000 Units/ml)) 4,000 unit AFTER DIALYSIS CATHETER Last administered on 12/10/18 12:10; Admin Dose 4,000 UNIT; Start 11/30/18 at 10:00 Albumin Human 100 ml @ 100 mls/hr WITH DIALYSIS PRN IV SBP <90 DURING DIALYSIS Last administered on 12/08/18 18:19; Admin Dose 100 MLS/HR; Start 11/30/18 at 10:00 Sodium Chloride (NS) -To prime the dialy... DIRECTED FOR HD PRN IV HD; Start 11/30/18 at 10:00 Insulin Aspart (Novolog Insulin Pen) NOVOLOG *MILD* ALGORITHM WITH MEALS BEDTIME SC Last administered on 12/10/18 08:18; Admin Dose 2 UNIT; Start 11/30 at 12:00 Miscellaneous Information 1 ea NOTE XX ; Start 11/30/18 at 10:00 Glucose (Glutose) 15 gm Q15M PRN PO DECREASED GLUCOSE; Start 11/30/18 at 10:00 Glucose (Glutose) 22.5 gm Q15M PRN PO DECREASED GLUCOSE; Start 11/30/18 at 10:00 Dextrose (D50w Syringe) 25 ml Q15M PRN IV DECREASED GLUCOSE Last administered on 12/02/18 07:07; Admin Dose 25 ML; Start 11/30/18 at 10:00 Dextrose (D50w Syringe) 50 ml Q15M PRN IV DECREASED GLUCOSE Last administered on 3/4/19at 07:58; Admin Dose 50 ML; Start 11/30/18 at 10:00 Glucagon (Glucagen) 1 mg Q15M PRN IM DECREASED GLUCOSE; Start 11/30/18 at 10:00 Glucose (Glutose) 15 gm Q15M PRN BUCCAL DECREASED GLUCOSE; Start 11/30/18 at 10:00 Senna (Senokot) 2 tab BID PO Last administered on 12/09/18at 21:29; Admin Dose 2 TAB; Start 12/01/18 at 21:00 Hydromorphone HCl (Dilaudid) 2 mg Q8H PRN PO BREAKTHROUGH PAIN; Start 12/08/18 at 15:30 Insulin Aspart (Novolog Insulin Pen) 9 unit WITH MEALS SC ; Start 12/10/18 at 12:00 Insulin Glargine (Lantus) 24 units DAILY@2000 SC ; Start 12/10/18 at 20:00 MECCA RENAE MD Dec 10, 2018 12:24
[2018-12-10] MEDS: INSULIN GLARGINE [LANTus] (100 UNITS/ML) SYG SC SCH (21:33)
[2018-12-11] VITALS (8 sets, daily range): BP systolic 3–103; BP diastolic 58; PULSE 70–85; RESP 18–20
[2018-12-11] MEDS: HYDROCODONE/APAP (5/325) TAB PO PRN (01:28)
[2018-12-11] MEDS ORDERED: DIPHENHYDRAMINE 50 MG INJ IV PRN (03:30)
[2018-12-11] MEDS ORDERED: DIPHENHYDRAMINE 50 MG INJ IV ONE (04:00)
[2018-12-11] MEDS: LACTULOSE 30ML CUP PO SCH ×4 (05:40→17:04)
[2018-12-11] MEDS: LEVOTHYROXINE 88 MCG TAB PO SCH (05:41)
[2018-12-11] MEDS: PANTOPRAZOLE (EC) 40 MG TAB PO SCH (05:41)
[2018-12-11] MEDS: INSULIN ASPART [NOVOLOG] 3 ML PEN SC SCH ×7 (08:09→20:46)
[2018-12-11] MEDS: FOLIC ACID 1 MG TAB PO SCH (08:31)
[2018-12-11] MEDS: RIFAXIMIN 550 MG TAB PO SCH ×2 (08:31→20:46)
[2018-12-11] MEDS: SENNA TAB PO SCH ×2 (08:31→20:45)
--- NOTE | 2018-12-11 08:58 | CONS ---
Assessment/Plan Assessment/Plan Assessment/Plan (Daily) 1. ESRD on HD - 2. acute abdominal pain 3. H/o Hypertension 4. H/o DM II 5. H/o Liver cirrhosis Plan: will plan for HD tomorrow if pt not discharged will keep pt on MWF schedule s/p Paracentesis 3.1 L removed on 12/02/18 will follow up Consultation Date/Type/Reason Admit Date/Time Dec 01, 2018 at 14:56 Initial Consult Date 11/30/18 Type of Consult NEPHROLOGY Requesting Provider: SIRI DISLA Date/Time of Note DATE: 12/11/18 TIME: 08:58 24 HR Interval Summary Free Text/Dictation doing better, d/c planning in progres,s Plan for HD tomorrow Exam/Review of Systems Exam Vitals Vital Signs Date Temp Pulse Resp B/P (MAP) Pulse Ox O2 O2 Flow FiO2 Time Delivery Rate 12/11/18 75 08:09 12/11/18 98.0 19 103/58 97 07:07 (73) 12/10/18 21 23:34 12/10/18 Nasal 2.0 21:00 Cannula Intake and Output 12/10/18 12/10/18 12/11/18 1515:00 23:00 07:00 IntakeIntake Total 400 ml 800 ml OutputOutput Total 1700 ml BalanceBalance -1700 ml 400 ml 800 ml Results Result Diagram: 12/11/18 0527 12/10/18 0535 Results 24hrs Laboratory Tests Test 12/10/18 11:56 12/10/18 18:00 12/10/18 21:01 12/11/18 05:27 Bedside Glucose 105 193 240 H White Blood Count 8.1 # Red Blood Count 2.73 #L Hemoglobin 9.3 #L Hematocrit 26.5 #L Mean Corpuscular 97.1 Volume Mean Corpuscular 34.1 H Hemoglobin Mean Corpuscular 35.1 Hemoglobin Concen t Red Cell 17.7 H Distribution Width Platelet Count 39 L Mean Platelet 14.0 H Volume Immature 0.200 Granulocytes % Neutrophils % 66.8 Lymphocytes % 19.5 Monocytes % 9.7 Eosinophils % 3.4 Basophils % 0.4 Nucleated Red 0.0 Blood Cells % Immature 0.020 Granulocytes # Neutrophils # 5.4 Lymphocytes # 1.6 Monocytes # 0.8 Eosinophils # 0.3 Basophils # 0.0 Nucleated Red 0.0 Blood Cells # Test 12/11/18 07:34 12/11/18 08:06 Lab Scanned BLOOD TRANSFUSIO Report N Bedside Glucose 384 H Medications Medication Current Medications IV Flush (NS 3 ml) 3 ml PER PROTOCOL IV ; Start 11/30/18 at 08:30 Ondansetron HCl (Zofran Inj) 4 mg Q6H PRN IV NAUSEA/VOMITING; Start 11/30/18 at 08:30 Acetaminophen (Tylenol Tab) 650 mg Q6H PRN PO .PAIN 1-3 OR TEMP Last administered on 12/07/18 20:33; Admin Dose 650 MG; Start 11/30/18 at 08:30 Acetaminophen/ Hydrocodone Bitart ([place] (5/325)) 1 tab Q6H PRN PO .MOD PAIN 4- 6 Last administered on 12/11/18 01:28; Admin Dose 1 TAB; Start 11/30/18 at 08:30 Docusate Sodium (Colace) 100 mg Q12H PRN PO .CONSTIPATION; Start 11/30/18 at 08:30 Magnesium Hydroxide (Milk Of Mag) 30 ml DAILY PRN PO .CONSTIPATION; Start 11/30/18 at 08:30 Albuterol/ Ipratropium (Duoneb) 3 ml Q4H RESP THERAPY PRN HHN SHORTNESS OF BREATH Last administered on 12/02/18 16:09; Admin Dose 3 ML; Start 11/30/18 at 08:30 Hydralazine HCl (Apresoline) 10 mg Q6H PRN IV ELEVATED BLOOD PRESSURE; Start 11/30/18 at 08:30 Nitroglycerin (Nitroglycerin (Sl Tab) 0.4 Mg) 1 tab Q5M PRN SL ANGINA; Start 11/30/18 at 08:30 Folic Acid (Folic Acid) 1 mg DAILY PO Last administered on 12/11/18 08:31; Admin Dose 1 MG; Start 11/30/18 at 09:00 Lactulose (Enulose) 20 gm Q6 PO Last administered on 12/10/18 00:23; Admin Dose 20 GM; Start 11/30/18 at 12:00 Levothyroxine Sodium (Synthroid) 88 mcg BEFORE BREAKFAST PO Last administered on 12/11/18 05:41; Admin Dose 88 MCG; Start 12/01/18 at 07:00 Pantoprazole (Protonix Tab) 40 mg DAILY@0600 PO Last administered on 12/11/18at 05:41; Admin Dose 40 MG; Start 11/30/18 at 09:00 Rifaximin (Xifaxan) 550 mg BID PO Last administered on 12/11/18at 08:31; Admin Dose 550 MG; Start 11/30/18 at 11:00 Miscellaneous Information 1 cap WITH MEALS XX ; Start 11/30/18 at 12:00; Status Hold Heparin Sodium (Porcine) (Heparin (1000 Units/ml)) 4,000 unit AFTER DIALYSIS CATHETER Last administered on 12/10/18at 12:10; Admin Dose 4,000 UNIT; Start 11/30/18 at 10:00 Albumin Human 100 ml @ 100 mls/hr WITH DIALYSIS PRN IV SBP <90 DURING DIALYSIS Last administered on 12/08/18at 18:19; Admin Dose 100 MLS/HR; Start 11/30/18 at 10:00 Sodium Chloride (NS) -To prime the dialy... DIRECTED FOR HD PRN IV HD; Start 11/30/18 at 10:00 Insulin Aspart (Novolog Insulin Pen) NOVOLOG *MILD* ALGORITHM WITH MEALS BEDTIME SC Last administered on 12/11/18at 08:12; Admin Dose 7 UNIT; Start 11/30/18 at 12:00 Miscellaneous Information 1 ea NOTE XX ; Start 11/30/18 at 10:00 Glucose (Glutose) 15 gm Q15M PRN PO DECREASED GLUCOSE; Start 11/30/18 at 10:00 Glucose (Glutose) 22.5 gm Q15M PRN PO DECREASED GLUCOSE; Start 11/30/18 at 10:00 Dextrose (D50w Syringe) 25 ml Q15M PRN IV DECREASED GLUCOSE Last administered on 12/02/18at 07:07; Admin Dose 25 ML; Start 11/30/18 at 10:00 Dextrose (D50w Syringe) 50 ml Q15M PRN IV DECREASED GLUCOSE Last administered on 12/01/18at 07:58; Admin Dose 50 ML; Start 11/30/18 at 10:00 Glucagon (Glucagen) 1 mg Q15M PRN IM DECREASED GLUCOSE; Start 11/30/18 at 10:00 Glucose (Glutose) 15 gm Q15M PRN BUCCAL DECREASED GLUCOSE; Start 11/30/18 at 10:00 Senna (Senokot) 2 tab BID PO Last administered on 12/09/18 21:29; Admin Dose 2 TAB; Start 12/01/18 at 21:00 Hydromorphone HCl (Dilaudid) 2 mg Q8H PRN PO BREAKTHROUGH PAIN Last administered on 12/10/18 21:08; Admin Dose 2 MG; Start 12/08/18 at 15:30 Insulin Aspart (Novolog Insulin Pen) 9 unit WITH MEALS SC Last administered on 12/11/18 08:09; Admin Dose 9 UNIT; Start 12/10/18 at 12:00 Insulin Glargine (Lantus) 24 units DAILY@2000 SC Last administered on 12/10/18at 21:33; Admin Dose 24 UNITS; Start 12/10/18 at 20:00 Diphenhydramine HCl (Benadryl) 25 mg Q6H PRN IV ITCHING; Start 12/11/18 at 03:30 MECCA RENAE MD Dec 11, 2018 08:58
--- NOTE | 2018-12-11 11:41 | PDOCDIS ---
Discharge Instructions CONDITION [id number] Patient Condition: [id number] Stable HOME CARE INSTRUCTIONS: [id number] Diet Instructions: [id number] Low Fat /Cholesterol ACTIVITY: [id number] Activity Restrictions: [id number] Slowly Increase Activity Rest between Activity Avoid heavy lifting FOLLOW UP/APPOINTMENTS Follow-up Plan Take your meds now, see your doctor in the clinic in 1 week. SIRI DISLA Dec 11, 2018 11:41
[2018-12-11] MEDS ORDERED: PANT40TA4 PO (11:53)
[2018-12-11] MEDS ORDERED: LEVO88TA3 PO (11:53)
[2018-12-11] MEDS ORDERED: LIPA1CAP2 PO (11:53)
[2018-12-11] MEDS ORDERED: LACT20SO2 PO (11:53)
[2018-12-11] MEDS ORDERED: RIFA550T4 PO (11:53)
[2018-12-11] MEDS ORDERED: UDMOM PO (11:54)
[2018-12-11] MEDS ORDERED: GLIP5TAB13 PO (11:54)
[2018-12-11] MEDS ORDERED: FURO80TA3 PO (11:54)
[2018-12-11] MEDS ORDERED: Insulin Glargine SC (11:54)
--- NOTE | 2018-12-11 12:01 | DS ---
Date/Time of Note Date/Time of Note DATE: 12/11/18 TIME: 11:55 Discharge Summary Admission/Discharge Info Admit Date/Time Dec 01, 2018 at 14:56 Discharge Date/Time Discharge Diagnosis #Abdominal pain -likely secondary to SBP- paracentesis 12/02/18 with >250 PMNs- Ascites culture growing fluoroquinolone-resistant E Coli. Has now completed treatment with ceftriaxone q24h (12/02-12/08) and albumin on day 1 and day 3 #Diabetes - A1c equals 8.6 #Hypothyroid #ESRD #Cirrhosis # Thrombocytopenia -platelet levels improved after platelet transfusion given this admission Patient Condition: Stable Procedures A. CT angiogram abdomen pelvis: IMPRESSION: No evidence of abdominal aortic aneurysm or dissection. Cirrhosis with varices and moderate ascites. Embolization coils left upper quadrant. Splenic hypodensity, likely infarct. Marked thickening of the ascending colon which may related to portal hypertension. Infectious colitis is not excluded. Correlate clinically. Cholelithiasis. Small left pleural effusion and atelectasis. B. Ultrasound-guided paracentesis: FINDINGS: Initial images demonstrate ascites. Approximately 3.1 liters of serous fluid was aspirated and sent for laboratory analysis. The patient tolerated the procedure well without complication. IMPRESSION: 1. Successful ultrasound-guided paracentesis. Hx of Present Illness 53-year-old female with past medical history based on records of cirrhosis, end- stage renal disease on dialysis, prior UTI, hepatic encephalopathy, type 2 diabetes, hypothyroidism who comes in with abdominal pain. Most of the information is obtained from the ER documentation as the patient is unable to provide full HPI at this time. The patient apparently had been having upper ab dominal pain. She required multiple doses of narcotics in the ER and initial CT scan with noncontrast did not show any acute abnormalities; however, CTA was performed later today and the results show embolization coils left upper quadrant, possible splenic infarct. There is also marked thickening of the ascending colon, may be related to portal hypertension, infectious colitis not excluded. There are also signs of gallstones but no signs of any abdominal aortic aneurysm or dissections and a call was made out to the vascular surgeon and general surgeon to come see the patient. Full review of systems cannot be obtained at this time. The patient was last here at our hospital in 01/2018. At that time, she was treated for alcoholic cirrhosis with ascites, E. coli UTI, also hepatic encephalopathy and acute kidney injury. Hospital Course Patient was admitted initially seen by general surgery and vascular surgery teams given the CT scan abdomen pelvis findings. She was given appropriate pain control medications as well. She continued on lactulose. It was felt that, despite the CT showing possible splenic infarct with embolization coil, according to [facility] resident (discussion with them) this was done in 2012. It was thus thought to unlikely be contributing to pain. Patient underwent paracentesis because of a ascites, and this grew positive for E. coli infection -thus patient's pain symptoms likely secondary to SBP. Patient completed 5 days of antibiotic treatment. Over the course of the hospital abdominal pain symptoms improved. A1c was found to be 8.6 and patient was placed on slightly higher dose of Lantus as well as sliding scale insulin regimen. Sugars were in the high normal range by the time of discharge. Her SBP improved. She also continue dialysis as regularly scheduled she does as an outpatient, seen by renal team here for that. Patient still somewhat weak and will need home health PT and home health nursing which case management is setting up now, once that is set up patient will be discharged home later today in improved condition. See below for full list of discharge medications. Home Meds Active Scripts Magnesium Hydroxide* (Amor' MOM*) 30 Ml Susp, 30 ML PO DAILY PRN for .CONSTIPATION, #1 BOTTLE 2 Refills Prov:NAIFSIRI S. 12/11/18 Glipizide* (Glipizide*) 5 Mg Tablet, 5 MG PO BID, #60 TAB 2 Refills Prov:NAIFSIRI S. 12/11/18 [Insulin Glargine] 100 UNITS/ML SOLN No Conflict Check, 15 UNITS SC DAILY@1999 Prov:NAIFSIRI S. 12/11/18 Furosemide* (Furosemide*) 80 Mg Tablet, 80 MG PO DAILY, #30 TAB 1 Refill Prov:SIRI DISLA S. 12/11/18 Pantoprazole* (Pantoprazole*) 40 Mg Tablet.dr, 40 MG PO DAILY, #30 TAB 2 Refills Prov:NAIFSIRI S. 12/11/18 Levothyroxine Sodium* (Levothyroxine Sodium*) 88 Mcg Tablet, 88 MCG PO BEFORE BREAKFAST, #30 TAB 2 Refills Prov:SIRI DISLA S. 12/11/18 Lactulose* (Lactulose*) 20 Gm/30 Ml Solution, 20 GM PO Q6 for 30 Days, #1 BOTTLE 3 Refills titrate to 3-4 BMs/day Prov:SIRI DISLA S. 12/11/18 Rifaximin* (Xifaxan*) 550 Mg Tablet, 550 MG PO BID, #60 TAB 2 Refills Prov:SIRI DISLA S. 12/11/18 Tojkls-Bkavmycq-Hdssxnm* (Joshua ERICKSON* 6,000) 6,000 L-19,000-30,000 Unit Capsule., 1 CAP PO WITH MEALS, #90 CAP 1 Refill Prov:SIRI DISLA S. 12/11/18 Folic Acid* (Folic Acid*) 1 Mg Tablet, 1 MG PO DAILY, #60 TAB Prov:ROSALBA MADSEN 01/22/18 Reported Medications Gabapentin* (Gabapentin*) 300 Mg Capsule, 300 MG PO DAILY, #60 CAP 04/30/18 Discontinued Reported Medications Insulin Glargine* (Lantus*) 100 Unit/Ml Soln, 6 UNIT SC QHS, #1 VIAL 04/30/18 Follow-up Plan Take your meds now, see your doctor in the clinic in 1 week. Primary Care Provider Lyle Rubio Time spent on discharge: > 30 minutes Pending Labs Laboratory Tests Test 12/10/18 11:56 12/10/18 18:00 12/10/18 21:01 12/11/18 05:27 Bedside 105 193 240 Glucose mg/dL (70-220) mg/dL (70-220) mg/dL (70-220) White Blood 8.1 Count 10^3/ul (4.8-1 0.8) Red Blood 2.73 Count 10^6/ul (4.20- 5.40) Hemoglobin 9.3 g/dl (12.0-16. 0) Hematocrit 26.5 % (37.0-47.0) Mean 97.1 Corpuscular fl (82.0-101.0 Volume ) Mean 34.1 Corpuscular pg (29.0-33.0) Hemoglobin Mean 35.1 Corpuscular g/dl (32.0-37. Hemoglobin Conc 0) ent Red Cell 17.7 Distribution % (11.5-14.5) Width Platelet Count 39 10^3/UL (140-4 15) Mean Platelet 14.0 Volume fl (7.4-10.4) Immature 0.200 Granulocytes % % (0.001-0.429 ) Neutrophils % 66.8 % (39.0-77.0) Lymphocytes % 19.5 % (15.0-51.0) Monocytes % 9.7 % (0.0-11.0) Eosinophils % 3.4 % (0.0-7.0) Basophils % 0.4 % (0.0-2.0) Nucleated Red 0.0 Blood Cells % /100WBC (0.0-0 .0) Immature 0.020 Granulocytes # 10^3/ul (0.0-0 .031) Neutrophils # 5.4 10^3/ul (1.6-7 .5) Lymphocytes # 1.6 10^3/ul (0.8-2 .9) Monocytes # 0.8 10^3/ul (0.3-0 .9) Eosinophils # 0.3 10^3/ul (0.0-0 .5) Basophils # 0.0 10^3/ul (0.0-0 .1) Nucleated Red 0.0 Blood Cells # 10^3/ul (0.0-0 .0) Test 12/11/18 07:34 12/11/18 08:06 12/11/18 11:45 Lab Scanned BLOOD TRANSFUSI Report ON Bedside 384 96 Glucose mg/dL (70-220) mg/dL (70-220) SIRI DISLA Dec 11, 2018 12:01
[2018-12-11] MEDS: INSULIN GLARGINE [LANTus] (100 UNITS/ML) SYG SC SCH (20:58)
== END 2018-12-11 22:20 | disposition home health service (06) | DRG 371 ==
LOC: E/R 02:57 → 6WM 06:52 → OBSVTOIN 12-01 14:56
PROVIDERS: ADMIT Internal Medicine; ATTEND Hospitalist
PROC: 5A1D70Z Performance of Urinary Filtration, Intermittent, Less than 6 Hours Per Day (ICD-10-PCS; 2018-12-01)
PROC: 0W9G3ZX Drainage of Peritoneal Cavity, Percutaneous Approach, Diagnostic (ICD-10-PCS; principal; 2018-12-02)
PROC: 30233R1 Transfusion of Nonautologous Platelets into Peripheral Vein, Percutaneous Approach (ICD-10-PCS; 2018-12-08)
PROC: 30233N1 Transfusion of Nonautologous Red Blood Cells into Peripheral Vein, Percutaneous Approach (ICD-10-PCS; 2018-12-10)
DX: K65.2 Spontaneous bacterial peritonitis (principal); N18.6 End stage renal disease; E11.22 Type 2 diabetes mellitus with diabetic chronic kidney disease; K70.40 Alcoholic hepatic failure without coma; D69.6 Thrombocytopenia, unspecified; K70.31 Alcoholic cirrhosis of liver with ascites; B96.20 Unspecified Escherichia coli [E. coli] as the cause of diseases classified elsewhere; E03.9 Hypothyroidism, unspecified; D64.9 Anemia, unspecified; Z16.23 Resistance to quinolones and fluoroquinolones; Z79.4 Long term (current) use of insulin; Z99.2 Dependence on renal dialysis
CPT/HCPCS: 36415; 36430; 71045; 74176; 75635; 80048; 80053; 80061; 82042; 82140; 82947; 82962; 83036; 83605; 83690; 83735; 84100; 84157; 84439; 84443; 85014; 85018; 85025; 85610; 85730; 86850; 86900; 86901; 86920; 87040; 87070; 87102; 87116; 87340; 89051; 90935; 92526; 92610; 93005; 94640; 96374; 96375; 97110; 97116; 97162; 97530; G0378; A4310; J0696; J1170; J1200; J1644; J1815; J2270; J2405; J3010; J7030; J7040; J7050; P9016; P9035; P9047; Q9967

== ENCOUNTER 2019-02-16 15:55 | Emergency (ER) | payer MEDICARE ==
[~2019-02-16] VITALS: Ht 167.6 cm; Wt 65.0 kg
[~2019-02-16 15:55] MED LIST changes: +GLIP5TAB13 PO; +Insulin Glargine SC; -LANT3I SC; +UDMOM PO
[2019-02-16 16:03] VITALS: Ht 167.6 cm; Wt 65.0 kg
--- NOTE | 2019-02-16 16:09 | ERD ---
ER Documentation Chief Complaint Chief Complaint abdominal pain HPI The patient is a 53-year-old female, presenting to the ER because of right-sided abdominal pain that began this morning, denies any trauma. She was sent from the rehab facility where she has stayed for 2 weeks. She denies fever, chills, neck pain, chest pain, dyspnea, vomiting, dizzy, diarrhea, constipation. Medical history: Diabetes mellitus, hypothyroidism, chronic kidney disease on hemodialysis Saturday and Saturday, diabetes mellitus, cirrhosis, th rombocytopenia, cholelithiasis Cervical history: Hysterectomy, right chest permacatheter ROS All systems reviewed and are negative except as per history of present illness. Medications Home Meds Discontinued Reported Medications Gabapentin* (Gabapentin*) 300 Mg Capsule, 300 MG PO DAILY, #60 CAP 04/30/18 Discontinued Scripts Magnesium Hydroxide* (Amor' MOM*) 30 Ml Susp, 30 ML PO DAILY PRN for .CONSTIPATION, #1 BOTTLE 2 Refills Prov:SIRI DISLA S. 12/11/18 Glipizide* (Glipizide*) 5 Mg Tablet, 5 MG PO BID, #60 TAB 2 Refills Prov:SIRI DILSA S. 12/11/18 [Insulin Glargine] 100 UNITS/ML SOLN No Conflict Check, 15 UNITS SC DAILY@1999 Prov:SIRI DISLA S. 12/11/18 Furosemide* (Furosemide*) 80 Mg Tablet, 80 MG PO DAILY, #30 TAB 1 Refill Prov:SIRI DSILA S. 12/11/18 Pantoprazole* (Pantoprazole*) 40 Mg Tablet.dr, 40 MG PO DAILY, #30 TAB 2 Refills Prov:SIRI DISLA S. 12/11/18 Levothyroxine Sodium* (Levothyroxine Sodium*) 88 Mcg Tablet, 88 MCG PO BEFORE BREAKFAST, #30 TAB 2 Refills Prov:SIRI DISLA S. 12/11/18 Lactulose* (Lactulose*) 20 Gm/30 Ml Solution, 20 GM PO Q6 for 30 Days, #1 BOTTLE 3 Refills titrate to 3-4 BMs/day Prov:SIRI DISLA S. 12/11/18 Rifaximin* (Xifaxan*) 550 Mg Tablet, 550 MG PO BID, #60 TAB 2 Refills Prov:SIRI DISLA S. 12/11/18 Vikxzl-Kitnbivh-Zvhfhsr* (Creon * 6,000) 6,000 L-19,000-30,000 Unit Capsule., 1 CAP PO WITH MEALS, #90 CAP 1 Refill Prov:SIRI DISLA S. 12/11/18 Folic Acid* (Folic Acid*) 1 Mg Tablet, 1 MG PO DAILY, #60 TAB Prov:ROSALBA MADSEN 01/22/18 Allergies Allergies: Coded Allergies: Penicillins (Verified Allergy, Unknown, 02/16/19) morphine (Verified Allergy, Unknown, rash,itch, 02/16/19) PMhx/Soc History of Surgery: Yes (hysterectomy, left ankle sx, permacath placement, hernia sx) Anesthesia Reaction: No Hx Neurological Disorder: Yes (Neurophathy) Hx Respiratory Disorders: No Hx Cardiac Disorders: No Hx Psychiatric Problems: No Hx Miscellaneous Medical Probl: No Hx Alcohol Use: Yes (20 YEARS AGO) Hx Substance Use: No Hx Tobacco Use: Yes (1 STICK/DAY) Physical Exam Vitals Vital Signs Date Temp Pulse Resp B/P (MAP) Pulse Ox O2 O2 Flow FiO2 Time Delivery Rate 02/16/19 80 26 139/65 96 Room Air 18:58 (89) 02/16/19 77 16 125/72 96 Room Air 18:00 (89) 02/16/19 61 14 162/80 100 17:00 (107) 02/16/19 97.8 58 18 198/82 98 16:03 (120) Physical Exam Const: No acute distress. Head: Atraumatic. Eyes: Normal Conjunctiva. ENT: Normal External Ears, Nose and Mouth. Neck: Full range of motion. No meningismus. Resp: Clear to auscultation bilaterally. Cardio: Regular rate and rhythm. Abd: Soft, non distended, normal bowel sounds, large right-sided hematoma about 10 x 5 cm, moderately tender Skin: Scattered ecchymosis Back: No midline or flank tenderness. Ext: No cyanosis, or edema. Neur: Awake and alert. No focal deficit Psych: Normal Mood and Affect. Result Diagram: 02/16/19 1634 02/16/19 1634 Results 24 hrs Laboratory Tests Test 5/20/19 16:34 White Blood Count 6.2 10^3/ul Red Blood Count 2.31 10^6/ul Hemoglobin 8.3 g/dl Hematocrit 24.5 % Mean Corpuscular Volume 106.1 fl Mean Corpuscular Hemoglobin 35.9 pg Mean Corpuscular Hemoglobin Concent 33.9 g/dl Red Cell Distribution Width 18.1 % Platelet Count 37 10^3/UL Mean Platelet Volume fl Immature Granulocytes % 0.200 % Neutrophils % % Segmented Neutrophils % (Manual) 71 % Band Neutrophils % (Manual) 3 % Lymphocytes % % Lymphocytes % (Manual) 18 % Monocytes % % Monocytes % (Manual) 5 % Eosinophils % % Eosinophils % (Manual) 3 % Basophils % % Basophils % (Manual) 1 % Nucleated Red Blood Cells % 0.0 /100WBC Immature Granulocytes # 0.010 10^3/ul Neutrophils # 10^3/ul Neutrophils # (Manual) 4.4 10^3/ul Band Neutrophils # 0.1 10^3/ul Lymphocytes (Manual) 1.1 10^3/ul Lymphocytes # 10^3/ul Monocytes # 10^3/ul Monocytes # (Manual) 0.3 10^3/ul Eosinophils # 10^3/ul Basophils # 10^3/ul Basophils # (Manual) 0.0 10^3/ul Nucleated Red Blood Cells # 10^3/ul Platelet Estimate SIG DECREASED Polychromasia 1+ Hypochromasia 1+ Poikilocytosis 2+ Anisocytosis 2+ Macrocytosis 2+ Ovalocytes 2+ Acanthocytes 1+ Prothrombin Time 25.2 Sec Prothrombin Time Ratio 2.0 INR International Normalized Ratio 2.28 Activated Partial Thromboplast Time 46.3 Sec Sodium Level 137 mmol/L Potassium Level 5.0 mmol/L Chloride Level 98 mmol/L Carbon Dioxide Level 32 mmol/L Anion Gap 7 Blood Urea Nitrogen 9 mg/dl Creatinine 3.60 mg/dl Est Glomerular Filtrat Rate mL/min 13 mL/min Glucose Level 236 mg/dl Calcium Level 7.9 mg/dl Magnesium Level 2.2 mg/dl Total Bilirubin 2.4 mg/dl Direct Bilirubin 0.00 mg/dl Indirect Bilirubin 2.4 mg/dl Aspartate Amino Transf (AST/SGOT) 30 IU/L Alanine Aminotransferase (ALT/SGPT) 17 IU/L Alkaline Phosphatase 185 IU/L Total Protein 7.3 g/dl Albumin 2.9 g/dl Globulin 4.40 g/dl Albumin/Globulin Ratio 0.65 Lipase < 10 U/L Current Medications Medications Dose Sig/Julian Start Time Status Last (Trade) Ordered Route PRN Stop Time Admin Dose Reason Admin Morphine 2 mg ONCE STAT 02/16/19 Cancel Sulfate IV 16:34 (morphine) 02/16/19 16:35 Ondansetron 4 mg ONCE STAT 02/16/19 DC 02/16/19 HCl (Zofran IV 16:34 16:53 Inj) 02/16/19 16:35 0.5 mg ONCE STAT 02/16/19 DC 02/16/19 Hydromorphone IV 16:47 16:53 HCl 02/16/19 16:48 (Dilaudid) 0.5 mg ONCE STAT 02/16/19 DC 02/16/19 Hydromorphone IV 18:04 18:25 HCl 02/16/19 18:05 (Dilaudid) Procedures/[place] [address] Radiology Main Line: [phone] DIAGNOSTIC IMAGING REPORT Patient: LENNOX WOLFE : 1965 Age: 53 Sex: F MR #: [id number] DOS: 02/16/19 1635 Ordering MD: MARY CARMEN BOJORQUEZ MD Location: E/R Room/Bed: PROCEDURE: CT Abdomen and Pelvis without contrast. CLINICAL INDICATION: Abdominal pain. TECHNIQUE: Unenhanced CT scan of the abdomen and pelvis was performed on a multi-detector high-resolution CT scanner. Coronal and sagittal reformatted images were obtained from the axial source images. Images were reviewed on a high-resolution PACS workstation. The total exam CTDI equals 7.6 mGy and the total exam DLP equals 468.6 mGy-cm. DICOM images are available. One or more of the following dose reduction techniques were utilized: 1.) Automated exposure control 2.) Adjustment of the mA +/- kV according to patient's size 3.) Use of iterative reconstruction technique. COMPARISON: 11/30/2018. FINDINGS: Evaluation of the soft tissues and viscera is limited in the absence of contrast. Decreased small left pleural effusion with mild associated compressive atelectasis of the posterior basilar left lower lobe. Stable scattered calcified pulmonary granulomata, evaluation degraded by respiratory motion artifact. Dual lumen dialysis catheter again terminates in the right atrium. Heart size is normal with trace pericardial effusion. Coronary artery calcifications. Mild systemic atherosclerotic calcifications without abdominal aortoiliac aneurysmal dilatation. No pathologic lymphadenopathy identified by imaging criteria. Redemonstrated shrunken, cirrhotic hepatic morphology with heterogeneous par enchyma and diffusely irregular margins, without identifiable focal mass lesion in the absence of contrast. Redemonstrated recanalization of the umbilical vein with multiple prominent upper abdominal and gastroesophageal varices. Redemonstrated multiple embolization coils in the left upper quadrant near the splenic hilum, with associated star artifact limiting evaluation of local anatomy. Redemonstrated cholelithiasis measuring up to 2.1 cm near the neck of the incompletely distended gallbladder with nonspecific mild gallbladder wall thickening and pericholecystic fluid in the presence of ascites. Pancreas demonstrates normal contour, with nonspecific peripancreatic fat stranding and fluid in the presence of ascites.. Spleen is normal in size. Adrenal glands appear normal. Recurrent/persistent large diffuse ascites limits evaluation of the mesenteries and bowel. The bowel is unobstructed without free air. There appears to be persistent/recurrent segmental wall thickening of the ascending colon (axial image 115, coronal image 53, sagittal image 32). The appendix is not definitely identified. Few scattered tiny left colonic diverticuli without identifiable focal evidence of acute diverticulitis. Kidneys demonstrate normal size, contour and orientation without identifiable focal mass lesion in the absence of intravenous contrast. No nephrolithiasis nor hydronephrosis. The ureters run unobstructed to an empty urinary bladder which is not well evaluated on today's exam. The patient is status post hysterectomy with postsurgical changes of the vaginal cuff. No pathologic adnexal mass identified on limited unenhanced evaluation. Osseous structures are stable and intact with redemonstrated probable L5-S1 posterior central disc herniation contributing to mild - moderate canal stenosis, suboptimally evaluated by CT. Right-sided ventral abdominal wall subcutaneous hematomas abutting the superficial rectus sheath measure 8.6 x 2.4 x 8.1 cm superiorly (axial image 91, coronal image 11, sagittal image 24) and 4.9 x 2.0 x 3.7 cm inferiorly (axial image 120, coronal image 20, sagittal image 24). Mild diffuse anasarca. Calcified injection granulomata in the right buttock. IMPRESSION: 1. Right-sided ventral abdominal wall subcutaneous hematomas abutting the superficial rectus sheath measure up to 8.6 cm superiorly and 4.9 cm inferiorly. 2. Redemonstrated cirrhotic hepatic morphology with stigmata of portal hypertension including moderately large diffuse ascites, mild anasarca and portal varices, with embolization coils in the left upper quadrant. 3. Redemonstrated cholelithiasis with nonspecific mild gallbladder wall thickening and pericholecystic fluid. If there is clinical suspicion for acute cholecystitis, this can be better evaluated with nuclear medicine HIDA scan. 4. Nonspecific peripancreatic fat stranding and fluid in the presence of ascites. Clinical correlation with amylase/lipase levels recommended. 5. Recurrent/persistent segmental ascending colic wall thickening suggested on limited evaluation. Differential considerations include edema related to portal hypertension, infectious or inflammatory colitis, or possibly neoplasm. 6. Minimal left colonic diverticulosis without identifiable focal evidence of acute diverticulitis. The bowel is unobstructed without evidence of acute perforation. 7. No nephrolithiasis nor hydronephrosis. 8. Decreased small left pleural effusion. 9. Atherosclerosis and coronary artery calcifications. 10. Redemonstrated probable L5-S1 posterior central disc herniation. This can be better evaluated by MRI L-spine if clinically warranted. RPTAT: HSAN Physician Hi Date Time Electronically viewed and signed by Physician Hi on 02/16/2019 18:40 xN/ CC: MARY CARMEN BOJORQUEZ MD [id number] MEDICAL MAKING DECISION: The patient is a 53-year-old female, presenting with acute abdominal wall subcutaneous hematoma, was treated with Dilaudid 0.5 mg IV x2 for pain, Zofran 4 mg ivx 2 for nausea with good response The differential diagnoses considered include but are not limited to cholelithiasis, cholecystitis, choledocholithiasis, cholangitis, pancreatitis, hepatitis, gastritis, peptic ulcer disease, gastric ulcer, appendicitis, cystitis, diverticulitis, partial small bowel obstruction. Departure Diagnosis: Primary Impression: Spontaneous hematoma of abdominal wall Additional Impressions: Anemia Thrombocytopenia Condition: Stable Comments Consultation: I discussed the patient with the on-call general surgeon Dr. Gutierrez at 7 PM, who was made aware of the patient condition, the labs and he accepted the consult I discussed the findings with the patient. I discussed the patient with Dr Henderson at 7:15 pm , who was made aware of the lab, the treatment, the patient condition. The patient is admitted to [facility] Disclaimer: Inadvertent spelling and grammatical errors are likely due to EHR/dictation software use and do not reflect on the overall quality of patient care. Also, please note that the electronic time recorded on this note does not necessarily reflect the actual time of the patient encounter. MARY CARMEN BOJORQUEZ MD February 16, 2019 16:09
[2019-02-16] MEDS ORDERED: morphine 2 MG INJ IV STA (16:34)
[2019-02-16] MEDS ORDERED: ONDANSETRON 4 MG INJ IV STA (16:34)
[2019-02-16] MEDS ORDERED: HYDROmorphONE 0.5 MG/0.5 ML SYG IV STA ×2 (16:47→18:04)
[2019-02-16 20:35] VITALS: BP 125/60; PULSE 68; RESP 16
== END 2019-02-16 22:32 | disposition left against medical advice (07) ==
LOC: E/R 15:55 → CANRESERV 20:21 → CANBEDREQ 20:55 → E/R 22:32
DX: M79.81 Nontraumatic hematoma of soft tissue (principal); D64.9 Anemia, unspecified; D69.6 Thrombocytopenia, unspecified; N18.9 Chronic kidney disease, unspecified; E11.22 Type 2 diabetes mellitus with diabetic chronic kidney disease; E03.9 Hypothyroidism, unspecified; Z87.891 Personal history of nicotine dependence; Z99.2 Dependence on renal dialysis
CPT/HCPCS: 36415; 74176; 80053; 82962; 83690; 83735; 85025; 85610; 85730; 96374; 96375; 96376; 99285; J1170; J2405; J2270

== ENCOUNTER 2019-04-15 10:07 | Emergency (ER) | payer MEDICARE, MEDICAID ==
[~2019-04-15] VITALS: Ht 162.6 cm; Wt 68.0 kg
[2019-04-15 10:10] VITALS: Ht 162.6 cm; Wt 68.0 kg
[2019-04-15] MEDS ORDERED: SOD CHLORIDE 0.9% 250 ML IV STA (10:36)
[2019-04-15] MEDS ORDERED: HYDROmorphONE 1 MG/ML SYG IV STA (10:36)
[2019-04-15] MEDS ORDERED: ONDANSETRON 4 MG INJ IV STA (10:36)
[2019-04-15] MEDS ORDERED: DIAZEPAM 5 MG/ML SYG IV ONE (11:00)
[2019-04-15] MEDS ORDERED: RIFA550T4 PO (12:44)
[2019-04-15] MEDS ORDERED: FOLI-49 PO (12:44)
[2019-04-15] MEDS ORDERED: CIPR-193 PO (12:45)
[2019-04-15] MEDS ORDERED: LEVO100T8 PO (12:45)
[2019-04-15] MEDS ORDERED: PANT40TA4 PO (12:46)
[2019-04-15] MEDS ORDERED: CHOL200056 PO (12:47)
[2019-04-15] MEDS ORDERED: LANT3I SC (12:47)
[2019-04-15] MEDS ORDERED: INSU100I12 SQ (12:48)
[2019-04-15] MEDS ORDERED: MIDO10TA PO (12:50)
[2019-04-15] MEDS ORDERED: NEPH PO (12:51)
[2019-04-15] MEDS ORDERED: SEVE800T7 PO (12:53)
[2019-04-15] MEDS ORDERED: HYDR-3980 PO (13:30)
--- NOTE | 2019-04-15 13:39 | ERD ---
ER Documentation Chief Complaint Chief Complaint left foot pain, hx fx in november, got half of dialysis done HPI This is a 53-year-old female who has chronic diabetic neuropathy and is complaining of an exacerbation. The patient was at dialysis today and she is getting burning leg pain that was worse than usual so they stopped dialysis prison through and sent her here. She states that she has had this for years and takes Elmo as needed for pain. She has no numbness or weakness in her legs no back pain or loss of bowel or bladder or saddle anesthesia. Pain is bilateral in the thighs radiating down the legs ROS All systems reviewed and are negative except as per history of present illness. Medications Home Meds Active Scripts Hydrocodone/Acetaminophen (Elmo 10-325 Tablet) 1 Each Tablet, 1 TAB PO Q6H PRN for PAIN, #8 TAB Prov:GISELLE DÍAZ DO 04/15/19 Reported Medications Sevelamer Carbonate* (Renvela*) 800 Mg Tablet, 1.6 GM PO WITH MEALS, TAB 04/15/19 Multivit/Ca Carb/B Cmplx/Fa* (Ermelinda-Mera*) 1 Tab Tab, 1 TAB PO DAILY, TAB 04/15/19 Midodrine* (Midodrine*) 10 Mg Tablet, 10 MG PO NEEDED, TAB TAKE 1 HOUR BEFORE DIALYSIS 04/15/19 Insulin Lispro (Humalog Kwikpen U-100) 100 Unit/1 Ml Insuln.pen, 2 UNIT SQ TID, EA 04/15/19 Cholecalciferol (Vitamin D3) (Vitamin D-3) 2,000 Unit Tablet, 2000 UNIT PO DAILY, TAB 04/15/19 Insulin Glargine* (Lantus*) 100 Unit/Ml Soln, 10 UNIT SC QHS, #1 VIAL 04/15/19 Pantoprazole* (Pantoprazole*) 40 Mg Tablet.dr, 40 MG PO AC BREAKFAST DINNER, TAB 04/15/19 Ciprofloxacin Hcl* (Ciprofloxacin Hcl*) 250 Mg Tablet, 250 MG PO DAILY, #14 TAB 04/15/19 Levothyroxine Sodium* (Levothyroxine Sodium*) 100 Mcg Tablet, 100 MCG PO BEFORE BREAKFAST, #30 TAB 04/15/19 Folic Acid* (Folic Acid*) 1 Mg Tablet, 1 MG PO DAILY, TAB 04/15/19 Rifaximin* (Xifaxan*) 550 Mg Tablet, 550 MG PO BID, TAB 04/15/19 Allergies Allergies: Coded Allergies: Penicillins (Verified Allergy, Unknown, 04/15/19) morphine (Verified Allergy, Unknown, rash,itch, 04/15/19) PMhx/Soc History of Surgery: Yes (hysterectomy, left ankle sx, permacath placement, hernia sx) Anesthesia Reaction: No Hx Neurological Disorder: Yes (Neurophathy) Hx Respiratory Disorders: No Hx Cardiac Disorders: Yes (DM, ESRD) Hx Psychiatric Problems: No Hx Miscellaneous Medical Probl: Yes (ANEMIA) Hx Alcohol Use: Yes (20 YEARS AGO) Hx Substance Use: No Hx Tobacco Use: Yes (1 STICK/DAY) FmHx Family History: No coronary disease Physical Exam Vitals Vital Signs Date Temp Pulse Resp B/P (MAP) Pulse Ox O2 O2 Flow FiO2 Time Delivery Rate 04/15/19 98.0 84 18 115/57 97 10:10 (76) Physical Exam Const: Well-developed, well-nourished Head: Atraumatic, normocephalic Eyes: Normal Conjunctiva, PERRLA, EOMI, normal sclera, no nystagmus ENT: Normal External Ears, Nose and Mouth, moist mucus membranes. Neck: Full range of motion. No meningismus, no lymphadenopathy. Resp: Clear to auscultation bilaterally, no wheezing, rhonchi, rales Cardio: Regular rate and rhythm, no murmurs, S1 S2 present Abd: Soft, non tender x 4, non distended. Normal bowel sounds, no guarding or rebound, no pulsitile abdominal masses or bruits Skin: No petechiae or rashes, no ecchymosis , no maculopapular rash Back: No midline or flank tenderness Ext: No cyanosis, or edema, FROM x 4, normal inspection, neurovascularly intact x 4 Neur: Awake and alert, STR 5/5 x 4, sensation intact x 4, no focal findings, cerebellum intact Psych: Normal Mood and Affect Result Diagram: 04/15/19 1117 Results 24 hrs Laboratory Tests Test 04/15/19 11:17 Sodium Level 133 mmol/L Potassium Level 4.9 mmol/L Chloride Level 99 mmol/L Carbon Dioxide Level 26 mmol/L Anion Gap 8 Blood Urea Nitrogen 19 mg/dl Creatinine 5.11 mg/dl Est Glomerular Filtrat Rate mL/min 9 mL/min Glucose Level 190 mg/dl Calcium Level 7.9 mg/dl Magnesium Level 2.3 mg/dl Current Medications Medications Dose Sig/Julian Start Time Status Last (Trade) Ordered Route PRN Stop Time Admin Dose Reason Admin Sodium 250 ml @ Q1H STAT 04/15/19 DC 04/15/19 Chloride 250 mls/hr IV 10:36 10:36 04/15/19 11:35 1 mg ONCE STAT 04/15/19 DC 04/15/19 Hydromorphone IV 10:36 11:22 HCl 04/15/19 10:38 (Dilaudid) Ondansetron 4 mg ONCE STAT 04/15/19 DC 04/15/19 HCl (Zofran IV 10:36 11:21 Inj) 04/15/19 10:38 Diazepam 5 mg ONCE ONCE 04/15/19 DC 04/15/19 (Valium) IV 11:00 11:22 04/15/19 11:01 Procedures/MDM Patient's electrolytes are unremarkable. She received some pain medication here and she is feeling much better. However follow-up with her primary for chronic pain control Departure Diagnosis: Primary Impression: Neuropathy Condition: Stable Patient Instructions: Neuropathy, Peripheral GISELLE DÍAZ DO Apr 15, 2019 13:39
[2019-04-15 14:07] VITALS: BP 118/69; PULSE 72; RESP 20
== END 2019-04-15 14:08 | disposition home or self-care (01) ==
LOC: E/R 10:07
DX: E11.21 Type 2 diabetes mellitus with diabetic nephropathy (principal); N18.6 End stage renal disease; E11.22 Type 2 diabetes mellitus with diabetic chronic kidney disease; Z79.4 Long term (current) use of insulin
CPT/HCPCS: 80048; 83735; J1170; J2405; J3360; J7040; 36415; 96374; 96375